=== PATIENT | female | born 1935 ===

== ENCOUNTER 2017-05-24 10:35 | Inpatient (IN) | payer MEDICARE, MEDICAID ==
[2017-05-24 10:39] VITALS: BMI 30.2
[2017-05-24 11:11] LABS: BASO # 0.2 K/uL (0.0-0.2); BASO % 1.8 % (0.0-2.0); EOS % 0.3 % (0.0-4.0); HEMATOCRIT 47.2 % (34.0-47.0); LYMPH # 1.4 K/uL (1.0-4.3); LYMPH % 10.9 % (20.0-40.0); MEAN CELL VOLUME 86.6 fl (81.0-99.0); MEAN CORPUSCULAR HEMOGLOBIN 27.8 pg (27.0-31.0); MEAN CORPUSCULAR HGB CONC 32.1 g/dL (33.0-37.0); MEAN PLATELET VOLUME 8.3 fl (7.2-11.7); MONO # 0.8 K/uL (0.0-0.8); MONO % 6.4 % (0.0-10.0); NEUT # 10.1 K/uL (1.8-7.0); NEUT % 80.6 % (50.0-75.0); NRBC % 0.1 % (0.0-0.0); RED CELL DISTRIBUTION WIDTH 14.9 % (11.5-14.5); WHITE BLOOD COUNT 12.5 K/uL (4.8-10.8)
[2017-05-24 11:25] LABS: ALB/GLOB RATIO 1.2 (1.0-2.1); BILIRUBIN,TOTAL 0.8 mg/dl (0.2-1.3); CALCIUM 9.7 mg/dL (8.4-10.2); POTASSIUM 3.8 MMOL/L (3.6-5.0); TOTAL PROTEIN 7.9 G/DL (6.3-8.2)
[2017-05-24 11:36] LABS: TROPONIN I 0.013 ng/mL (0.00-0.120)
--- NOTE | 2017-05-24 12:08 | ED PDOC ---
HPI: Altered Mental Status Time Seen by Provider: 05/24/17 10:54 Chief Complaint (Nursing): Altered Mental Status Chief Complaint (Provider): Altered mental status History Per: Family (daughter) History/Exam Limitations: Clinical Condition Onset/Duration Of Symptoms: Days (x5) Current Symptoms Are (Timing): Still Present Additional Complaint(s): Cecilia Jeong is an 82 year old female with a past medical history of hypertension, diabetes, and dementia accompanied by her daughter brought to the ED via EMS for an evaluation of altered mental status and failure to eat and drink occurring for the past 5 days prior to arrival. The patient is a poor historian due to her mental condition, therefore her daughter provided most of the patient's symptoms. The daughter states the patient was recently admitted under the care of Dr. Red, the patients primary care physician, in this hospital earlier in May for altered mental status and hypoglycemia and was just discharged yesterday. The patient was not eating or drinking properly and was generally weak during her recent hospitalization, with these symptoms worsening upon discharge when the patient went home. The daughter also reports the patient does not usually walk, but she is having weakness in her arms and legs. The daughter states the patient is complaining of generalized body aches, she does not have an appetite, she is less responsive to conversations, and she has been vomiting intermittently. She denies any incidence of diarrhea or cough. PMD: Keith Red MD NIHSS Stroke Scale - Date/Time Evaluation Performed Date Performed: 05/24/17 Time Performed: 11:30 When Was NIHSS Performed: Baseline - How Severe is the Stroke Level of Consciousness: 0=Alert LOC to Questions: 2=Neither correct LOC to commands: 2=Neither correct Best Gaze: 0=Normal Visual: 0=No visual loss Facial: 0=Normal Motor Arm - Left: 1=Drift noted before 10 sec Motor Arm - Right: 1=Drift noted before 10 sec Motor Leg - Left: 1=Drift before 5 sec Motor Leg - Right: 1=Drift before 5 sec Limb Ataxia: 0=Absent Sensory: 0=Normal Best Language: 0=No aphasia Dysarthia: 0=Normal articulation Extinction & Inattention (Neglect): 0=Normal, no object Score: 8 rTPA Inclusion/Exclusion - Refusal of Treatment Patient Refused Treatment: No - Inclusion Criteria for Altepase Patient is 18 years or Older: Yes Clinical DX Ischemic Stroke Cause Neurological Deficit: Yes Time of Onset Established Less Than 270 Mins Before TX Begin: No Risk/Benefit Discussed With Patient/Family Member Present: No Past Medical History Reviewed: Historical Data, Nursing Documentation, Vital Signs Vital Signs: Last Vital Signs Temp 97.1 F L 05/24/17 10:39 Pulse 87 05/24/17 11:55 Resp 18 05/24/17 11:55 BP 135/56 L 05/24/17 11:55 Pulse Ox 100 05/24/17 11:55 - Medical History PMH: Alzheimer's Disease, Anxiety, Arthritis, Bronchitis, CVA, Dementia, Gall Bladder Disease, HTN, TIA Denies: Chronic Kidney Disease - Surgical History Surgical History: Cholecystectomy - Family History Family History: States: Unknown Family Hx - Social History Current smoker - smoking cessation education provided: No Ex-Smoker (has not smoked in the last 12 months): No Alcohol: None Drugs: Denies - Home Medications Home Medications: Ambulatory Orders Medication Instructions Recorded Carvedilol [Coreg] 6.25 mg PO BID #60 tab 05/22/17 Lisinopril [Zestril] 20 mg PO BID #60 tab 05/22/17 amLODIPine [Norvasc] 2.5 mg PO DAILY #30 tab 05/22/17 Nitroglycerin 0.1 mg/hr [Nitro-Dur 1 patch TD DAILY #30 patch 05/23/17 0.1 mg/hr Patch] Donepezil HCl [Aricept] 5 mg PO DAILY 05/24/17 Esomeprazole Magnesium [Nexium] 40 mg PO DAILY 05/24/17 Meclizine [Antivert] 12.5 mg PO BID PRN 05/24/17 Albuterol/Ipratropium [Duoneb 3 3 ml INH RQ6 neb 05/27/17 mg/0.5 mg (3 ml) UD] Atorvastatin [Lipitor] 40 mg PO DAILY tab 05/27/17 Dextrose 5%-0.45% NS [Dextrose 1,000 ml IV DAILY #1 bag 05/27/17 5%-0.45% NS 500 ml] Enoxaparin [Lovenox] 40 mg SC DAILY syr 05/27/17 Nystatin [Nystop Topical Powder] 1 applic TOP TID bottle 05/27/17 - Allergies Allergies/Adverse Reactions: Allergies Allergy/AdvReac Type Severity Reaction Status Date / Time No Known Allergies Allergy Verified 05/24/17 10:51 Review of Systems Review Of Systems: ROS cannot be obtained secondary to pt's inabilty to answer questions. (history cannot be accurately obtained from patient due to patient's clinical condition) Physical Exam - Reviewed Nursing Documentation Reviewed: Yes Vital Signs Reviewed: Yes - Physical Exam Appears: Positive for: Non-toxic, No Acute Distress Head Exam: Positive for: ATRAUMATIC, NORMOCEPHALIC Skin: Positive for: Normal Color, Warm, Dry Eye Exam: Positive for: Normal appearance, EOMI, PERRL ENT: Positive for: Normal ENT Inspection, Other (mucous membranes dry ) Neck: Positive for: Normal, Painless ROM, Supple Cardiovascular/Chest: Positive for: Regular Rate, Rhythm, Chest Non Tender. Negative for: Edema, Murmur Respiratory: Positive for: Normal Breath Sounds. Negative for: Respiratory Distress Gastrointestinal/Abdominal: Positive for: Normal Exam, Soft. Negative for: Tenderness Back: Positive for: Normal Inspection Extremity: Positive for: Normal ROM, Other (3/5 strength in extremities; minor pain felt to left hip; spontaneous arm movement and leg movements) Neurologic/Psych: Positive for: Alert (and awake), Oriented (unable to determine orientation. patient does not follow commands). Negative for: Motor/ Sensory Deficits - Laboratory Results Result Diagrams: 05/25/17 06:30 05/25/17 06:30 - ECG O2 Sat by Pulse Oximetry: 100 (RA) Pulse Ox Interpretation: Normal Medical Decision Making Medical Decision Making: Time: 10:54 Impression: Altered mental status. Differential includes but is not limited to hyponatremia, stroke, UTI, dementia Plan: * ED EKG * CMP * CPK * Troponin I * CBC (with differential) * Nursing swallow screen PRN * CT Head w/o Contrast * [RAD] Hip 1 View W/ pelvis Left * Reevaluation CT Head Results: FINDINGS: HEMORRHAGE: Large, bland infarct corresponding to the distribution of the posterior cerebral artery on the left. This represents a new finding compared to the prior study May 19, 2017. BRAIN: No mass effect or edema. No atrophy or chronic microvascular ischemic changes. VENTRICLES: Unremarkable. No hydrocephalus. CALVARIUM: Densely calcified dural-based masses the largest right frontal parietal location measures 10 mm consistent with meningioma. Smaller dural-based masses less than 5 mm identified. PARANASAL SINUSES: Unremarkable as visualized. No significant inflammatory changes. MASTOID AIR CELLS: Unremarkable as visualized. No inflammatory changes. OTHER FINDINGS: None. IMPRESSION: Large acute, bland territorial infarction left posterior cerebral artery distribution. Critical Results Protocol Study completed at 11:35 Results conveyed verbally 12:29 Study interpreted 12:32 12:[address] Red. Will admit patient for stroke, inpatient telemetry. Requested Dr. Devlin for consult. 1250 Discussed the case with Dr Devlin. Recommends admission for stroke work up. He agrees and confirms that patient is not a candidate for TPA: exclusion criteria are time of onset is out of window for TPA and recommended time window for Endovascular therapy. Scribe Attestation: Documented by Hillary Yang, acting as a scribe for Eulalia Guerrier MD. Provider Scribe Attestation: All medical record entries made by the Scribe were at my direction and personally dictated by me. I have reviewed the chart and agree that the record accurately reflects my personal performance of the history, physical exam, medical decision making, and the department course for this patient. I have also personally directed, reviewed, and agree with the discharge instructions and disposition. Disposition - Clinical Impression Clinical Impression: CVA (cerebral vascular accident) - Patient ED Disposition Is Patient to be Admitted: Yes Discussed With : Keith Red Doctor Will See Patient In The: Hospital Counseled Patient/Family Regarding: Studies Performed, Diagnosis - Disposition Disposition Time: 12:50 Condition: FAIR - Pt Status Changed To: Hospital Disposition Of: Inpatient - Admit Certification Admit to Inpatient:: After my assessment, the patient will require hospitalization for at least two midnights. This is because of the severity of symptoms shown, intensity of services needed, and/or the medical risk in this patient being treated as an outpatient. - POA Present On Arrival: Poor Glycemic Control
--- NOTE | 2017-05-24 12:33 | CT ---
PROCEDURE: CT HEAD WITHOUT CONTRAST. HISTORY: Altered mental status COMPARISON: 05/19/2017 TECHNIQUE: Axial computed tomography images were obtained through the head/brain without intravenous contrast. Radiation dose: * Total exam DLP = 770.47 mGy-cm. This CT exam was performed using one or more of the following dose reduction techniques: Automated exposure control, adjustment of the mA and/or kV according to patient size, and/or use of iterative reconstruction technique. FINDINGS: HEMORRHAGE: Large, bland infarct corresponding to the distribution of the posterior cerebral artery on the left. This represents a new finding compared to the prior study May 19, 2017. BRAIN: No mass effect or edema. No atrophy or chronic microvascular ischemic changes. VENTRICLES: Unremarkable. No hydrocephalus. CALVARIUM: Densely calcified dural-based masses the largest right frontal parietal location measures 10 mm consistent with meningioma. Smaller dural-based masses less than 5 mm identified. PARANASAL SINUSES: Unremarkable as visualized. No significant inflammatory changes. MASTOID AIR CELLS: Unremarkable as visualized. No inflammatory changes. OTHER FINDINGS: None. IMPRESSION: Large acute, bland territorial infarction left posterior cerebral artery distribution. Critical Results Protocol Study completed at 11:35 Results conveyed verbally 12:29 Study interpreted 12:32
--- NOTE | 2017-05-24 14:03 | RAD ---
PROCEDURE: Left Hip X-ray Radiographs. HISTORY: left hip pain COMPARISON: None. FINDINGS: BONES: No evidence of acute displaced left-sided hip fracture. Left femoral head is appropriately located within the left acetabulum. Note is made of a foreshortened appearance of the right femoral neck. This is likely positional. Old healed fracture deformity would be less likely in the absence of a pertinent clinical history however not completely excluded. Clinical correlation recommended. JOINTS: Joint spaces preserved. . SOFT TISSUES: Normal. OTHER FINDINGS: None. IMPRESSION: No evidence of acute displaced left-sided hip fracture. Foreshortened appearance of the right femoral neck likely positional. Old healed fracture deformity would be less likely. . Clinical correlation recommended
--- NOTE | 2017-05-24 16:04 | MRI ---
PROCEDURE: MRI BRAIN WITHOUT CONTRAST HISTORY: stroke, AMS COMPARISON: Comparison is made to the previous study dated 01/07/[address] of the head dated 05/24/2017 TECHNIQUE: Multiplanar, multisequence MR images of the brain were obtained without intravenous contrast enhancement. FINDINGS: HEMORRHAGE: None DWI: Diffusion restriction seen at the left occipital lobe extending to the medial posterior left temporal lobe suggestive of left posterior cerebral artery territorial infarct. BRAIN PARENCHYMA: Extra-axial hypointense T1 and T2 signal is again noted suggestive of calcified meningioma. No evidence of midline shift. Moderate atrophy and moderate chronic microvascular white matter ischemic disease are noted. There is a [id number] dilatation of the extra-axial space in the left posterior fossa. VENTRICLES: Unremarkable. No hydrocephalus. CRANIUM: Unremarkable. ORBITS: Grossly unremarkable. PARANASAL SINUSES/MASTOIDS: Ipjw-gv-aowdizzl mucosal thickening at the right maxillary sinus. VASCULAR SYSTEM: Skull base flow voids intact. OTHER FINDINGS: None. IMPRESSION: Diffusion restriction at the left occipital lobe suggestive of large infarct involving the left posterior cerebral artery territory. Moderate atrophy and chronic microvascular ischemic disease. .
--- NOTE | 2017-05-24 18:26 | CP.PCM.HP ---
History of Present Illness - History of Present Illness History of Present Illness: Dx CVA Patient was recently AD [facility] 05-19 to 05-23 with Dx Change mental status , Patient at home was not eating refusing medication with increase in BP, generalized weakness. Patient was brought to ER 11- work up CT Head negative for CVA, Carotid US negative , Patient did no have MRI of Brain , She was uncooperative. Patient did not have any focal motor deficit , only generalized weakness and not eating or at best 50% of meals and rejecting meds. PT suggested GERMAINE , Patient 's family prefered Home care, her daughter would stay with her 04/02 . Patient at home was uncooperative , not eating or taking medications , increased generalized weaknss. Patient's daughter noticed that She was not moving the R arm DOA and She was brought to ER [facility] , CT head and MRI Brain large infarct L posterior cerebral artery not present in previous CT Head . She was AD treated with ASA and Lipitor Past Neurologic Hx of Cerebral Aneurysm and, Meningioma , TIA yrs ago treated with Plavix , Dementia Present on Admission - Present on Admission Any Indicators Present on Admission: No Review of Systems - Review of Systems Systems not reviewed;Unavailable: Acuity of Condition Past Patient History - Past Medical History & Family History Past Medical History?: Yes - Past Social History Smoking Status: Never Smoked Alcohol: None Home Situation {Lives}: Alone - CARDIAC Hx Cardiac Disorders: Yes Hx Hypertension: Yes - PULMONARY Hx Respiratory Disorders: Yes Hx Bronchitis: Yes - NEUROLOGICAL Hx Neurological Disorder: Yes Hx Alzheimer's Disease: Yes HX Cerebrovascular Accident: Yes Hx Dementia: Yes Hx Transient Ischemic Attacks (TIA): Yes - HEENT Hx HEENT Problems: Yes (Use eyeglasses) - RENAL Hx Chronic Kidney Disease: No - ENDOCRINE/METABOLIC Hx Endocrine Disorders: Yes Hx Diabetes Mellitus Type 2: Yes - HEMATOLOGICAL/ONCOLOGICAL Hx Blood Disorders: No Hx AIDS: No Hx Human Immunodeficiency Virus (HIV): No - INTEGUMENTARY Hx Dermatological Problems: No - MUSCULOSKELETAL/RHEUMATOLOGICAL Hx Musculoskeletal Disorders: Yes Hx Arthritis: Yes Hx Falls: No - GASTROINTESTINAL Hx Gastrointestinal Disorders: Yes Hx Gall Bladder Disease: Yes - GENITOURINARY/GYNECOLOGICAL Hx Genitourinary Disorders: Yes Hx Incontinence: Yes - PSYCHIATRIC Hx Psychophysiologic Disorder: Yes Hx Anxiety: Yes Hx Substance Use: No - SURGICAL HISTORY Hx Surgeries: Yes Hx Cholecystectomy: Yes - ANESTHESIA Hx Anesthesia: Yes Hx Anesthesia Reactions: No Hx Malignant Hyperthermia: No Has any member of the family had a problem w/ anesthesia?: No Meds Allergies/Adverse Reactions: Allergies Allergy/AdvReac Type Severity Reaction Status Date / Time No Known Allergies Allergy Verified 05/24/17 10:51 Physical Exam - Constitutional Appears: Chronically Ill - Head Exam Head Exam: NORMAL INSPECTION - Eye Exam Eye Exam: PERRL - ENT Exam ENT Exam: Normal Exam - Neck Exam Neck exam: Positive for: Normal Inspection - Respiratory Exam Respiratory Exam: Decreased Breath Sounds (at bases) - Cardiovascular Exam Cardiovascular Exam: REGULAR RHYTHM - GI/Abdominal Exam GI & Abdominal Exam: Normal Bowel Sounds, Soft - Extremities Exam Extremities exam: Positive for: normal inspection - Back Exam Back exam: NORMAL INSPECTION - Neurological Exam Additional comments: Awake , able to talk , not following commands , no facial asymmetry, gag reflex (+) , not moving RUE , RLE , some movement rest of the extremities, Plantar up going - Skin Skin Exam: Warm Results - Vital Signs Recent Vital Signs: Last Vital Signs Temp 97.4 F L 05/24/17 16:34 Pulse 78 05/24/17 16:34 Resp 18 05/24/17 16:34 BP 151/84 H 05/24/17 16:34 Pulse Ox 100 05/24/17 16:34 - Labs Result Diagrams: 05/25/17 06:30 05/25/17 06:30 Labs: Laboratory Results - last 24 hr 05/24/17 05/24/17 05/24/17 11:00 11:00 16:44 WBC 12.5 H RBC 5.45 H Hgb 15.2 D Hct 47.2 H MCV 86.6 MCH 27.8 MCHC 32.1 L RDW 14.9 H Plt Count 292 MPV 8.3 Neut % (Auto) 80.6 H Lymph % (Auto) 10.9 L Fountain % (Auto) 6.4 Eos % (Auto) 0.3 Baso % (Auto) 1.8 Neut # 10.1 H Lymph # 1.4 Fountain # 0.8 Eos # 0.0 Baso # 0.2 Sodium 141 Potassium 3.8 Chloride 98 Carbon Dioxide 28 Anion Gap 18 BUN 37 H Creatinine 1.6 H Est GFR ( Amer) 37 Est GFR (Non-Af Amer) 31 POC Glucose (mg/dL) 207 H Random Glucose 207 H Calcium 9.7 Total Bilirubin 0.8 AST 36 D ALT 39 Alkaline Phosphatase 116 Troponin I 0.0130 Total Protein 7.9 Albumin 4.2 Globulin 3.7 Albumin/Globulin Ratio 1.2 Assessment & Plan (1) CVA (cerebral vascular accident) Status: Acute Comment: L posterior Cerebral Artery (2) Dementia Status: Chronic (3) Meningioma Status: Chronic (4) Cerebral aneurysm Status: Chronic Comment: Hx (5) Hypertension Status: Chronic Priority: High (6) DMII (diabetes mellitus, type 2) Status: Chronic - Assessment and Plan (Free Text) Plan: Continue Ecotrin , Lipitor, monitor BP and BS , f/u Neurology consult , Patient on puree diet, but She is refusing to eat and taking meds , discussed with Patient's family , They agree with PEG tube if needed and also that Patient should be transferred to Longterm as permanent resident when Patient stable. - Date & Time Date: 05/24/17 Time: 14:00
[2017-05-24] MEDS ORDERED: Sodium Chloride 0.45% 1,000 ML IV SCH (21:45)
--- NOTE | 2017-05-24 22:36 | CARD ---
APPROVED REPORT EKG Measurement Heart [id number] <Conclusion> Normal sinus rhythm Possible Left atrial enlargement Left ventricular hypertrophy Nonspecific ST abnormality Abnormal ECG
[2017-05-25] MEDS: Sodium Chloride 0.9% 1,000 ML IV SCH ×2 (00:49→14:00)
[2017-05-25 07:42] LABS: HEMATOCRIT 40.6 % (34.0-47.0); MEAN CELL VOLUME 86.8 fl (81.0-99.0); MEAN CORPUSCULAR HGB CONC 33.4 g/dL (33.0-37.0); RED CELL DISTRIBUTION WIDTH 14.9 % (11.5-14.5); WHITE BLOOD COUNT 8.7 K/uL (4.8-10.8)
[2017-05-25 07:48] LABS: ALKALINE PHOSPHATASE 96 U/L (38-126); ALT/SGPT 37 U/L (9-52); AST/SGOT 32 U/L (14-36); BILIRUBIN,TOTAL 0.8 mg/dl (0.2-1.3); BLOOD UREA NITROGEN 39 mg/dl (7-17); CALCIUM 8.6 mg/dL (8.4-10.2); CARBON DIOXIDE 31 mmol/L (22-30); CHLORIDE 101 mmol/L (98-107); CHOLESTEROL 120 mg/dL (0-199); GFR AFRICAN-AMERICAN > 60; GLUCOSE,RANDOM 176 mg/dL (65-105); POTASSIUM 3.5 MMOL/L (3.6-5.0); SODIUM 141 mmol/l (132-148); TOTAL PROTEIN 6.9 G/DL (6.3-8.2)
[2017-05-25] MEDS: Aspirin 325 mg EC Tablets PO SCH (09:33)
[2017-05-25] MEDS: Albuterol-Ipratrop 3 mg / 0.5 (3 ml) UD INH SCH (20:00)
--- NOTE | 2017-05-25 22:30 | CP.PCM.PN ---
Subjective - Date & Time of Evaluation Date of Evaluation: 05/25/17 Time of Evaluation: 15:00 - Subjective Subjective: F/u CVA Pt awake, follows commands, able to move the RUE, not LLE. Refusing to have lunch today. Objective - Vital Signs/Intake and Output Vital Signs (last 24 hours): Temp Pulse Resp BP Pulse Ox 98.1 F 97 H 20 158/64 H 98 05/25/17 19:34 05/25/17 19:34 05/25/17 19:34 05/25/17 19:34 05/25/17 19:34 Intake and Output: 05/25/17 05/26/17 18:59 06:59 Intake Total 960 Output Total 400 Balance 560 - Medications Medications: Current Medications Albuterol/Ipratropium (Duoneb 3 Mg/0.5 Mg (3 Ml) Ud) 3 ml INH RQ6 [facility] Aspirin (Ecotrin) 325 mg PO DAILY [facility] Last Admin: 05/25/17 09:33 Dose: 325 mg Atorvastatin Calcium (Lipitor) 40 mg PO DAILY [facility] Last Admin: 05/25/17 09:33 Dose: 40 mg Sodium Chloride (Sodium Chloride 0.9%) 1,000 mls @ 80 mls/hr IV .[id number] [facility] Stop: 05/26/17 00:30 Last Admin: 05/25/17 14:00 Dose: 80 mls/hr Nystatin (Nystop Topical Powder) 1 applic TOP TID [facility] Last Admin: 05/25/17 17:09 Dose: 1 applic - Labs Labs: 05/25/17 06:30 05/25/17 06:30 - Constitutional Appears: No Acute Distress, Chronically Ill - Head Exam Head Exam: NORMAL INSPECTION - Eye Exam Eye Exam: PERRL - ENT Exam ENT Exam: Normal Exam - Neck Exam Neck Exam: Normal Inspection - Respiratory Exam Respiratory Exam: Decreased Breath Sounds (at bases) - Cardiovascular Exam Cardiovascular Exam: REGULAR RHYTHM - GI/Abdominal Exam GI & Abdominal Exam: Soft, Normal Bowel Sounds - Extremities Exam Extremities Exam: Normal Inspection - Back Exam Back Exam: NORMAL INSPECTION - Neurological Exam Neurological Exam: Awake Additional comments: Pt able to talk, not following commands, no facial asymmetry, R hemiplegia. - Skin Skin Exam: Warm Assessment and Plan (1) CVA (cerebral vascular accident) Status: Acute (2) Dementia Status: Chronic (3) Meningioma Status: Chronic (4) Cerebral aneurysm Status: Chronic (5) Hypertension Status: Chronic (6) DMII (diabetes mellitus, type 2) Status: Chronic - Assessment and Plan (Free Text) Plan: Continue Lovenox, Ecotrin, Glucerna and rest of Tx. Pt seen by GI and ordered CT Abd/Pelv with IV contrast for tomorrow.
--- NOTE | 2017-05-26 00:58 | CP.PCM.CON ---
History of Present Illness - History of Present Illness History of Present Illness: Patient was recently AD [facility] 05-19 to 05-23 with Dx Change mental status , Patient at home was not eating refusing medication with increase in BP, generalized weakness. Patient was brought to ER 11- work up CT Head negative for CVA, Carotid US negative , Patient did no have MRI of Brain , She was uncooperative. Patient did not have any focal motor deficit , only generalized weakness and not eating or at best 50% of meals and rejecting meds. PT suggested GERMAINE , Patient 's family prefered Home care, her daughter would stay with her 04/02 . Patient at home was uncooperative , not eating or taking medications , increased generalized weakness . Patient's daughter noticed that She was not moving the R arm DOA and She was brought to ER [facility] , CT head and MRI Brain large infarct L posterior cerebral artery not present in previous CT Head . She was AD treated with ASA and Lipitor Past History: Neurologic Hx of Cerebral Aneurysm and, Meningioma , TIA yrs ago treated with Plavix , Dementia Hx Cardiac Disorder Hx Hypertension Hx Respiratory Disorders Hx Bronchitis Hx Diabetes Mellitus Type 2 Hx Gall Bladder Disease Hx Arthritis Hx Incontinence Hx Psychophysiologic Disorder Hx Anxiety Surgical History: Cholecystectomy Review of Systems - Review of Systems Systems not reviewed;Unavailable: Acuity of Condition Past Patient History - Past Medical History & Family History Past Medical History?: Yes - Past Social History Smoking Status: Never Smoked Alcohol: None Home Situation {Lives}: Alone - CARDIAC Hx Cardiac Disorders: Yes Hx Hypertension: Yes - PULMONARY Hx Respiratory Disorders: Yes Hx Bronchitis: Yes - NEUROLOGICAL Hx Neurological Disorder: Yes Hx Alzheimer's Disease: Yes HX Cerebrovascular Accident: Yes Hx Dementia: Yes Hx Transient Ischemic Attacks (TIA): Yes - HEENT Hx HEENT Problems: Yes (Use eyeglasses) - RENAL Hx Chronic Kidney Disease: No - ENDOCRINE/METABOLIC Hx Endocrine Disorders: Yes Hx Diabetes Mellitus Type 2: Yes - HEMATOLOGICAL/ONCOLOGICAL Hx Blood Disorders: No Hx AIDS: No Hx Human Immunodeficiency Virus (HIV): No - INTEGUMENTARY Hx Dermatological Problems: No - MUSCULOSKELETAL/RHEUMATOLOGICAL Hx Musculoskeletal Disorders: Yes Hx Arthritis: Yes Hx Falls: No - GASTROINTESTINAL Hx Gastrointestinal Disorders: Yes Hx Gall Bladder Disease: Yes - GENITOURINARY/GYNECOLOGICAL Hx Genitourinary Disorders: Yes Hx Incontinence: Yes - PSYCHIATRIC Hx Psychophysiologic Disorder: Yes Hx Anxiety: Yes Hx Substance Use: No - SURGICAL HISTORY Hx Surgeries: Yes Hx Cholecystectomy: Yes - ANESTHESIA Hx Anesthesia: Yes Hx Anesthesia Reactions: No Hx Malignant Hyperthermia: No Has any member of the family had a problem w/ anesthesia?: No NIHSS Stroke Scale - Date/Time Evaluation Performed Date Performed: 05/24/17 Time Performed: 11:30 When Was NIHSS Performed: Baseline - How Severe is the Stroke Level of Consciousness: 0=Alert LOC to Questions: 2=Neither correct LOC to commands: 2=Neither correct Best Gaze: 0=Normal Visual: 0=No visual loss Facial: 0=Normal Motor Arm - Left: 1=Drift noted before 10 sec Motor Arm - Right: 1=Drift noted before 10 sec Motor Leg - Left: 1=Drift before 5 sec Motor Leg - Right: 1=Drift before 5 sec Limb Ataxia: 0=Absent Sensory: 0=Normal Best Language: 0=No aphasia Dysarthia: 0=Normal articulation Extinction & Inattention (Neglect): 0=Normal, no object Score: 8 IMPRESSION of MRI Brain: Diffusion restriction at the left occipital lobe suggestive of large infarct involving the left posterior cerebral artery territory. Moderate atrophy and chronic microvascular ischemic disease. . Meds Allergies/Adverse Reactions: Allergies Allergy/AdvReac Type Severity Reaction Status Date / Time No Known Allergies Allergy Verified 05/24/17 10:51 Last Vital Signs Temp 97.4 F L 05/24/17 16:34 Pulse 78 05/24/17 16:34 Resp 18 05/24/17 16:34 BP 151/84 H 05/24/17 16:34 Pulse Ox 100 05/24/17 16:34 Neurological Exam Awake , able to talk , not following commands , no facial asymmetry, gag reflex (+) , not moving RUE , RLE , some movement rest of the extremities, Plantar up going Assessment & Plan (1) CVA (cerebral vascular accident) Status: Acute Comment: L posterior Cerebral Artery (2) Dementia Status: Chronic (3) Meningioma Status: Chronic (4) Cerebral aneurysm Status: Chronic Comment: Hx (5) Hypertension Status: Chronic Priority: High (6) DMII (diabetes mellitus, type 2) Status: Chronic - Assessment and Plan (Free Text) Plan: Continue Ecotrin , Lipitor, monitor BP and BS , f/u Neurology consult , Patient on puree diet, but She is refusing to eat and taking meds , discussed with Patient's family , They agree with PEG tube if needed and also that Patient should be transferred to Retirement as permanent resident when Patient stable. Past Patient History - Past Medical History & Family History Past Medical History?: Yes - Past Social History Smoking Status: Never Smoked Alcohol: None Home Situation {Lives}: Alone - CARDIAC Hx Cardiac Disorders: Yes Hx Hypertension: Yes - PULMONARY Hx Respiratory Disorders: Yes Hx Bronchitis: Yes - NEUROLOGICAL Hx Neurological Disorder: Yes Hx Alzheimer's Disease: Yes HX Cerebrovascular Accident: Yes Hx Dementia: Yes Hx Transient Ischemic Attacks (TIA): Yes - HEENT Hx HEENT Problems: Yes (Use eyeglasses) - RENAL Hx Chronic Kidney Disease: No - ENDOCRINE/METABOLIC Hx Endocrine Disorders: Yes Hx Diabetes Mellitus Type 2: Yes - HEMATOLOGICAL/ONCOLOGICAL Hx Blood Disorders: No Hx AIDS: No Hx Human Immunodeficiency Virus (HIV): No - INTEGUMENTARY Hx Dermatological Problems: No - MUSCULOSKELETAL/RHEUMATOLOGICAL Hx Musculoskeletal Disorders: Yes Hx Arthritis: Yes Hx Falls: No - GASTROINTESTINAL Hx Gastrointestinal Disorders: Yes Hx Gall Bladder Disease: Yes - GENITOURINARY/GYNECOLOGICAL Hx Genitourinary Disorders: Yes Hx Incontinence: Yes - PSYCHIATRIC Hx Psychophysiologic Disorder: Yes Hx Anxiety: Yes Hx Substance Use: No - SURGICAL HISTORY Hx Surgeries: Yes Hx Cholecystectomy: Yes - ANESTHESIA Hx Anesthesia: Yes Hx Anesthesia Reactions: No Hx Malignant Hyperthermia: No Has any member of the family had a problem w/ anesthesia?: No Meds Allergies/Adverse Reactions: Allergies Allergy/AdvReac Type Severity Reaction Status Date / Time No Known Allergies Allergy Verified 05/24/17 10:51 - Medications Medications: Current Medications Albuterol/Ipratropium (Duoneb 3 Mg/0.5 Mg (3 Ml) Ud) 3 ml INH RQ6 [facility] Last Admin: 05/25/17 20:00 Dose: Not Given Aspirin (Ecotrin) 325 mg PO DAILY [facility] Last Admin: 05/25/17 09:33 Dose: 325 mg Atorvastatin Calcium (Lipitor) 40 mg PO DAILY [facility] Last Admin: 05/25/17 09:33 Dose: 40 mg Nystatin (Nystop Topical Powder) 1 applic TOP TID [facility] Last Admin: 05/25/17 17:09 Dose: 1 applic Physical Exam - Neurological Exam Additional comments: Mental Status: Confused, not interactive, did not verbalize, no eye to eye contact Demented, does not follow commands Patient is lying down, not interacting complaining of pain on trying to move her left Upper and Lower Extremities, no spontaneous movements of her right or left side extremities Cranial Nerves: Pupils are equal, sluggish reaction to light, eye movements are symmetrical No facial asymmetry central tongue Intact gag reflex Motor: Right side is mostly flaccid Left side negative movements are very painful to her, mainly the left Shoulder and the whole left leg and thigh. Unable to assess the power as there is no spontaneous movements. DTR are 0/4 toes are equivocal Sensory: Tenderness and pain like above Cerebellar: Unable to assess Stature and gait: does not stand or walk due to her weakness. Results - Vital Signs Recent Vital Signs: Last Vital Signs Temp 98.1 F 05/25/17 19:34 Pulse 97 H 05/25/17 19:34 Resp 20 05/25/17 19:34 BP 158/64 H 05/25/17 19:34 Pulse Ox 98 05/25/17 19:34 - Labs Result Diagrams: 05/25/17 06:30 05/25/17 06:30 Labs: Laboratory Results - last 24 hr 05/24/17 05/25/17 05/25/17 10:44 05:40 06:30 WBC 8.7 RBC 4.68 Hgb 13.6 Hct 40.6 MCV 86.8 MCH 29.0 MCHC 33.4 RDW 14.9 H Plt Count 249 Sodium Potassium Chloride Carbon Dioxide Anion Gap BUN Creatinine Est GFR ( Amer) Est GFR (Non-Af Amer) POC Glucose (mg/dL) 205 H 152 H Random Glucose Calcium Total Bilirubin AST ALT Alkaline Phosphatase Total Protein Albumin Globulin Albumin/Globulin Ratio Triglycerides Cholesterol LDL Cholesterol Direct HDL Cholesterol 05/25/17 05/25/17 05/25/17 06:30 10:24 16:35 WBC RBC Hgb Hct MCV MCH MCHC RDW Plt Count Sodium 141 Potassium 3.5 L Chloride 101 Carbon Dioxide 31 H Anion Gap 13 BUN 39 H Creatinine 1.0 Est GFR ( Amer) > 60 Est GFR (Non-Af Amer) 53 POC Glucose (mg/dL) 169 H 166 H Random Glucose 176 H Calcium 8.6 Total Bilirubin 0.8 AST 32 ALT 37 Alkaline Phosphatase 96 Total Protein 6.9 Albumin 3.4 L Globulin 3.5 Albumin/Globulin Ratio 1.0 Triglycerides 150 H Cholesterol 120 LDL Cholesterol Direct 73 HDL Cholesterol 26 L 05/25/17 22:07 WBC RBC Hgb Hct MCV MCH MCHC RDW Plt Count Sodium Potassium Chloride Carbon Dioxide Anion Gap BUN Creatinine Est GFR ( Amer) Est GFR (Non-Af Amer) POC Glucose (mg/dL) 157 H Random Glucose Calcium Total Bilirubin AST ALT Alkaline Phosphatase Total Protein Albumin Globulin Albumin/Globulin Ratio Triglycerides Cholesterol LDL Cholesterol Direct HDL Cholesterol Assessment & Plan (1) CVA (cerebral vascular accident) Assessment and Plan: IMPRESSION of MRI Brain: Diffusion restriction at the left occipital lobe suggestive of large infarct involving the left posterior cerebral artery territory. Moderate atrophy and chronic microvascular ischemic disease. This can explain her serious mental status changes. Status: Acute (2) Cerebral aneurysm Assessment and Plan: Old Records are needed. Status: Chronic (3) Dementia Assessment and Plan: History of a previous stroke, cause of her dementia is not known to us, old records are needed. Status: Chronic (4) Meningioma Assessment and Plan: Old records are needed Status: Chronic (5) Altered mental status Assessment and Plan: Chronic Mental status Changes with acute mental changes on top of her condition Status: Acute Priority: High (6) Headache Assessment and Plan: R/O Temporal arteritis Get ESR, CRP Status: Acute Priority: Medium (7) DMII (diabetes mellitus, type 2) Status: Chronic (8) Dementia Assessment and Plan: Chronic Mental status Changes with acute mental changes on top of her condition Status: Chronic Priority: High
[2017-05-26] MEDS: Albuterol-Ipratrop 3 mg / 0.5 (3 ml) UD INH SCH ×3 (01:03→13:26)
[2017-05-26] MEDS: Aspirin 325 mg EC Tablets PO SCH (09:40)
[2017-05-26] MEDS ORDERED: Iohexol 240 (50 ml) PO ONE (12:39)
--- NOTE | 2017-05-26 14:49 | CP.PCM.PN ---
Subjective - Date & Time of Evaluation Date of Evaluation: 05/26/17 Time of Evaluation: 14:00 - Subjective Subjective: F/U CVA Pt with poor appetite refusing puree diet and minimal intake fluid, also refusing po medications, able to talk, confused, follows simple commands. Objective - Vital Signs/Intake and Output Vital Signs (last 24 hours): Temp Pulse Resp BP Pulse Ox 98.6 F 105 H 20 171/82 H 93 L 05/26/17 12:50 05/26/17 12:50 05/26/17 12:50 05/26/17 12:50 05/26/17 12:50 Intake and Output: 05/26/17 05/26/17 06:59 18:59 Intake Total 1640 Output Total 800 Balance 840 - Medications Medications: Current Medications Albuterol/Ipratropium (Duoneb 3 Mg/0.5 Mg (3 Ml) Ud) 3 ml INH RQ6 [facility] Last Admin: 05/26/17 13:26 Dose: 3 ml Aspirin (Ecotrin) 325 mg PO DAILY [facility] Last Admin: 05/26/17 09:40 Dose: 325 mg Atorvastatin Calcium (Lipitor) 40 mg PO DAILY [facility] Last Admin: 05/26/17 09:40 Dose: 40 mg Nystatin (Nystop Topical Powder) 1 applic TOP TID [facility] Last Admin: 05/26/17 09:40 Dose: 1 applic - Labs Labs: 05/25/17 06:30 05/25/17 06:30 - Constitutional Appears: No Acute Distress, Chronically Ill - Head Exam Head Exam: NORMAL INSPECTION - Eye Exam Eye Exam: PERRL - ENT Exam ENT Exam: Normal Exam - Neck Exam Neck Exam: Normal Inspection - Respiratory Exam Respiratory Exam: Decreased Breath Sounds (at bases) - Cardiovascular Exam Cardiovascular Exam: REGULAR RHYTHM - GI/Abdominal Exam GI & Abdominal Exam: Soft, Normal Bowel Sounds - Extremities Exam Extremities Exam: Normal Inspection - Back Exam Back Exam: NORMAL INSPECTION - Neurological Exam Neurological Exam: Awake (Able to talk, no facial asymmetry, R hemiplegia.) - Psychiatric Exam Additional comments: Calm - Skin Skin Exam: Warm Assessment and Plan (1) CVA (cerebral vascular accident) Status: Acute (2) Dementia Status: Chronic (3) Meningioma Status: Chronic (4) Cerebral aneurysm Status: Chronic (5) Hypertension Status: Chronic (6) DMII (diabetes mellitus, type 2) Status: Chronic - Assessment and Plan (Free Text) Plan: Pt had CT Abd/Pel today, continue Lovenox, Lipitor, Ecotrin, Lucerna.
--- NOTE | 2017-05-26 22:32 | CP.PCM.PN ---
Subjective - Date & Time of Evaluation Date of Evaluation: 05/26/17 Time of Evaluation: 20:15 - Subjective Subjective: More responsive, more cooperative, Right UE and Right LE are flaccid, Left side is weak and it is tender to move her left side UE and LE. RPR non reactive, CRP 10, ESR 33 Objective - Vital Signs/Intake and Output Vital Signs (last 24 hours): Temp Pulse Resp BP Pulse Ox 97.6 F 97 H 20 172/86 H 96 05/26/17 19:33 05/26/17 19:33 05/26/17 19:33 05/26/17 19:33 05/26/17 19:33 Intake and Output: 05/26/17 05/27/17 18:59 06:59 Intake Total 1260 Output Total 600 Balance 660 - Medications Medications: Current Medications Albuterol/Ipratropium (Duoneb 3 Mg/0.5 Mg (3 Ml) Ud) 3 ml INH RQ6 [facility] Last Admin: 05/26/17 13:26 Dose: 3 ml Aspirin (Ecotrin) 325 mg PO DAILY [facility] Last Admin: 05/26/17 09:40 Dose: 325 mg Atorvastatin Calcium (Lipitor) 40 mg PO DAILY [facility] Last Admin: 05/26/17 09:40 Dose: 40 mg Nystatin (Nystop Topical Powder) 1 applic TOP TID [facility] Last Admin: 05/26/17 18:16 Dose: 1 applic - Labs Labs: 05/25/17 06:30 05/25/17 06:30 Assessment and Plan (1) CVA (cerebral vascular accident) Status: Acute (2) Cerebral aneurysm Status: Chronic (3) Dementia Status: Chronic (4) Meningioma Status: Chronic (5) Altered mental status Status: Acute (6) Headache Status: Acute (7) DMII (diabetes mellitus, type 2) Status: Chronic (8) Dementia Status: Chronic
--- NOTE | 2017-05-26 23:12 | CON ---
DATE: 05/26/2017 REFERRING DOCTOR: Dr. Red. REASON FOR CONSULTATION: Failure to thrive, failure to take p.o. HISTORY OF PRESENT ILLNESS: This is a pleasant 82-year-old female with history of hypertension, diabetes, and dementia. She is brought in for altered mental status for the past week or so with some generalized malaise. The patient is a poor historian, therefore, history obtained from the chart. Essentially GI is called for a feeding tube insertion. PAST MEDICAL HISTORY: As above. PAST SURGICAL HISTORY: As above. MEDICATION: Have been reviewed. REVIEW OF SYSTEMS: Unable to obtain. PHYSICAL EXAMINATION: VITAL SIGNS: During the hospital, grossly unremarkable. GENERAL: A pleasant elderly-appearing female lying in bed comfortably, in no apparent distress. HEENT: Head: Normocephalic, atraumatic. Eyes: Pupils equally reactive to light bilaterally. No conjunctival pallor or icterus. NECK: Supple. Normal range of motion. No lymphadenopathy appreciated. LUNGS: Coarse breath sounds bilaterally. HEART: S1, S2, regular rate and rhythm. No murmurs appreciated. ABDOMEN: Soft, nontender. Bowel sounds present. No rebound, no guarding. RECTAL: Deferred. EXTREMITIES: Pulses present bilaterally. SKIN: Warm, dry, and intact. NEUROLOGIC: A and O x1 . LABORATORY DATA: All labs and relevant radiology have been reviewed. Labs include WBC 12.5, now down to 8.7, hemoglobin 13.6, hematocrit of 40.6. ESR 33. Sugars of 175. ASSESSMENT AND PLAN: This is an 82-year-old female with some abdominal pain, discomfort, generalized malaise, and failure to thrive. From a Gastrointestinal stand point, we will defer to Neurology for clearing the patient for any possible ongoing mental status changes. We will need to make sure stop for 7 days. We will discuss with family about feeding tube. Patient has some discomfort, we will get a CAT scan for now. Thank you for the consult. Christopher Pichardo MD/ PhD cc: Keith Red MD
[2017-05-27] MEDS: Albuterol-Ipratrop 3 mg / 0.5 (3 ml) UD INH SCH ×4 (01:21→19:38)
--- NOTE | 2017-05-27 09:30 | PQF GENQUE ---
This form is a permanent part of the medical record 05/27/17 Dr. Red, Would you please clarify if there is an associated diagnosis to go along with the following documentation: " Not moving RUE, RLE". Patient was recently discharged. Admitted with increased generalized weakness. CT and MRI + for large infarct L posterior cerebral artery. Treated with aspirin. Documentation of Awake , able to talk , not following commands , no facial asymmetry, gag reflex (+) , not moving RUE , RLE , some movement rest of the extremities, Plantar up going. Clarification of your documentation is requested to better reflect the severity of illness and intensity of treatment of your patient. Indicators present [] Specify: [] [] Specify: [] [] Specify: [] [] Specify: [] Location in the medical record that reflects the above clinical findings: [] Treatment Provided: [] PHYSICIAN'S RESPONSE Based on your medical judgment of the clinical indicators outlined above please clarify the following: [] Practitioner response [] If unable to determine, please check the box, sign and date. Present On Admission (POA) Indicator: [] Present at the time of admission [] Not present at the time of admission [] Clinically Undetermined In responding to this query, please exercise your independent professional judgment. The fact that a question is asked does not imply that any particular answer is desired or expected. Thank you for your clarification on this documentation. If you have any questions please call:ext [phone] * Thank you, Susu Mace RN [facility]
[2017-05-27] MEDS: Aspirin 325 mg EC Tablets PO SCH (09:55)
[2017-05-27] MEDS: Dextrose 5%/0.45% NS 1,000 ML IV SCH (12:42)
[2017-05-27] MEDS: Enoxaparin 40 mg Syringe SC SCH (14:13)
[2017-05-27] MEDS ORDERED: Sodium Chloride 0.9% 50 ML IV ONE (15:00)
[2017-05-27] MEDS ORDERED: Iohexol 300 100 ML IJ ONE (15:00)
--- NOTE | 2017-05-27 16:28 | CP.PCM.PN ---
Subjective - Date & Time of Evaluation Date of Evaluation: 05/27/17 Time of Evaluation: 11:00 - Subjective Subjective: F/U CVA Pt awake, able to talk, follows commands, weak but able to race the RUE against the gravity, not able to move the RLE on commands, able to move tips of fingers. Objective - Vital Signs/Intake and Output Vital Signs (last 24 hours): Temp Pulse Resp BP Pulse Ox 97.4 F L 111 H 20 164/82 H 93 L 05/27/17 16:00 05/27/17 16:00 05/27/17 16:00 05/27/17 16:00 05/27/17 16:00 Intake and Output: 05/27/17 05/27/17 06:59 18:59 Intake Total 1260 380 Output Total 600 Balance 660 380 - Medications Medications: Current Medications Albuterol/Ipratropium (Duoneb 3 Mg/0.5 Mg (3 Ml) Ud) 3 ml INH RQ6 [facility] Last Admin: 05/27/17 13:19 Dose: 3 ml Aspirin (Ecotrin) 325 mg PO DAILY [facility] Last Admin: 05/27/17 09:55 Dose: 325 mg Atorvastatin Calcium (Lipitor) 40 mg PO DAILY [facility] Last Admin: 05/27/17 09:55 Dose: 40 mg Enoxaparin Sodium (Lovenox) 40 mg SC DAILY [facility] PRN Reason: Protocol Last Admin: 05/27/17 14:13 Dose: 40 mg Dextrose/Sodium Chloride (Dextrose 5%/0.45% Ns 1000 Ml) 1,000 mls @ 60 mls/hr IV .[id number] [facility] Stop: 05/28/17 12:23 Last Admin: 05/27/17 12:42 Dose: 60 mls/hr Nystatin (Nystop Topical Powder) 1 applic TOP TID [facility] Last Admin: 05/27/17 12:41 Dose: 1 applic - Labs Labs: 05/25/17 06:30 05/25/17 06:30 - Constitutional Appears: No Acute Distress, Chronically Ill - Head Exam Head Exam: NORMAL INSPECTION - Eye Exam Eye Exam: PERRL - ENT Exam ENT Exam: Normal Exam - Neck Exam Neck Exam: Normal Inspection - Respiratory Exam Respiratory Exam: Decreased Breath Sounds (at bases) - Cardiovascular Exam Cardiovascular Exam: REGULAR RHYTHM - GI/Abdominal Exam GI & Abdominal Exam: Soft, Normal Bowel Sounds - Extremities Exam Extremities Exam: Normal Inspection - Back Exam Back Exam: NORMAL INSPECTION - Neurological Exam Neurological Exam: Awake (Able to talk, no facial asymmetry, R hemiplegia) - Psychiatric Exam Additional comments: Calm - Skin Skin Exam: Warm Assessment and Plan (1) CVA (cerebral vascular accident) Status: Acute (2) Dementia Status: Chronic (3) Meningioma Status: Chronic (4) Cerebral aneurysm Status: Chronic (5) Hypertension Status: Chronic (6) DMII (diabetes mellitus, type 2) Status: Chronic - Assessment and Plan (Free Text) Plan: F/U result of Ct Pelv/Abd today, continue current Tx.
--- NOTE | 2017-05-27 16:34 | CT ---
PROCEDURE: CT Abdomen and Pelvis with contrast HISTORY: Abdominal pain COMPARISON: None. TECHNIQUE: Contrast dose: 95 cc Omnipaque 300 Radiation dose: Total exam DLP =1067.57 mGy-cm. This CT exam was performed using one or more of the following dose reduction techniques: Automated exposure control, adjustment of the mA and/or kV according to patient size, and/or use of iterative reconstruction technique. FINDINGS: LOWER THORAX: Unremarkable. LIVER: Unremarkable. No gross lesion or ductal dilatation. GALLBLADDER AND BILE DUCTS: Status post cholecystectomy. No abnormality is seen in the gallbladder fossa. PANCREAS: Unremarkable. No gross lesion or ductal dilatation. SPLEEN: Unremarkable. ADRENALS: Unremarkable. No mass. KIDNEYS AND URETERS: Unremarkable. No hydronephrosis. No solid mass. VASCULATURE: Unremarkable. No aortic aneurysm. BOWEL: Diverticulosis without an acute inflammatory component or other associated pathologic process. APPENDIX: Normal appendix. PERITONEUM: Unremarkable. No free fluid. No free air. LYMPH NODES: Unremarkable. No enlarged lymph nodes. BLADDER: Pedroza catheter in satisfactory position within the urinary bladder. REPRODUCTIVE: Unremarkable. BONES: No acute fracture. OTHER FINDINGS: None. IMPRESSION: Unremarkable contrast enhanced CT of the abdomen and pelvis.
--- NOTE | 2017-05-28 00:44 | CP.PCM.PN ---
Subjective - Date & Time of Evaluation Date of Evaluation: 05/27/17 Time of Evaluation: 21:00 - Subjective Subjective: More awake and alert, able to talk and is responsive, regained some movements of the right side fingers. IMPRESSION: Unremarkable contrast enhanced CT of the abdomen and pelvis. Objective - Vital Signs/Intake and Output Vital Signs (last 24 hours): Temp Pulse Resp BP Pulse Ox 99.7 F H 97 H 18 175/89 H 99 05/28/17 00:19 05/28/17 00:19 05/28/17 00:19 05/28/17 00:19 05/28/17 00:19 Intake and Output: 05/27/17 05/28/17 18:59 06:59 Intake Total 780 Output Total 650 Balance 130 - Medications Medications: Current Medications Albuterol/Ipratropium (Duoneb 3 Mg/0.5 Mg (3 Ml) Ud) 3 ml INH RQ6 [facility] Last Admin: 05/27/17 19:38 Dose: 3 ml Aspirin (Ecotrin) 325 mg PO DAILY [facility] Last Admin: 05/27/17 09:55 Dose: 325 mg Atorvastatin Calcium (Lipitor) 40 mg PO DAILY [facility] Last Admin: 05/27/17 09:55 Dose: 40 mg Enoxaparin Sodium (Lovenox) 40 mg SC DAILY [facility] PRN Reason: Protocol Last Admin: 05/27/17 14:13 Dose: 40 mg Dextrose/Sodium Chloride (Dextrose 5%/0.45% Ns 1000 Ml) 1,000 mls @ 60 mls/hr IV .[id number] [facility] Stop: 05/28/17 12:23 Last Admin: 05/27/17 12:42 Dose: 60 mls/hr Nystatin (Nystop Topical Powder) 1 applic TOP TID [facility] Last Admin: 05/27/17 16:49 Dose: 1 applic - Labs Labs: 05/25/17 06:30 05/25/17 06:30 Assessment and Plan (1) CVA (cerebral vascular accident) Status: Acute (2) Cerebral aneurysm Status: Chronic (3) Dementia Status: Chronic (4) Meningioma Status: Chronic (5) Altered mental status Status: Acute (6) Headache Status: Acute (7) DMII (diabetes mellitus, type 2) Status: Chronic (8) Dementia Status: Chronic
[2017-05-28] MEDS: Albuterol-Ipratrop 3 mg / 0.5 (3 ml) UD INH SCH ×4 (01:26→19:20)
[2017-05-28 05:58] LABS: HEMATOCRIT 39.3 % (34.0-47.0); MEAN CORPUSCULAR HEMOGLOBIN 28.4 pg (27.0-31.0); MEAN CORPUSCULAR HGB CONC 32.6 g/dL (33.0-37.0); RED CELL DISTRIBUTION WIDTH 14.4 % (11.5-14.5); WHITE BLOOD COUNT 9.9 K/uL (4.8-10.8)
[2017-05-28 06:16] LABS: BLOOD UREA NITROGEN 10 mg/dl (7-17); CALCIUM 8.4 mg/dL (8.4-10.2); CARBON DIOXIDE 29 mmol/L (22-30); CHLORIDE 99 mmol/L (98-107); GFR AFRICAN-AMERICAN > 60; GLUCOSE,RANDOM 203 mg/dL (65-105); POTASSIUM 2.7 MMOL/L (3.6-5.0); SODIUM 133 mmol/l (132-148)
[2017-05-28] MEDS ORDERED: Potassium CL 10 MEQ/50 ML 50 ML IVPB SCH (08:30)
[2017-05-28] MEDS: Potassium Chloride 20 mEq/15 ml LIQ UD PO ONE ×2 (09:27→09:51)
[2017-05-28] MEDS: Aspirin 325 mg EC Tablets PO SCH ×2 (09:28→09:52)
[2017-05-28] MEDS: Dextrose 5%/0.45% NS 1,000 ML IV SCH (09:28)
[2017-05-28] MEDS: Enoxaparin 40 mg Syringe SC SCH (09:28)
--- NOTE | 2017-05-28 15:58 | CP.PCM.PN ---
Subjective - Date & Time of Evaluation Date of Evaluation: 05/28/17 Time of Evaluation: 13:00 - Subjective Subjective: no overnight events Objective - Vital Signs/Intake and Output Vital Signs (last 24 hours): Temp Pulse Resp BP Pulse Ox 98.3 F 100 H 20 173/85 H 95 05/28/17 12:00 05/28/17 12:00 05/28/17 12:00 05/28/17 12:00 05/28/17 12:00 - Medications Medications: Current Medications Albuterol/Ipratropium (Duoneb 3 Mg/0.5 Mg (3 Ml) Ud) 3 ml INH RQ6 [facility] Last Admin: 05/28/17 13:29 Dose: 3 ml Aspirin (Ecotrin) 325 mg PO DAILY [facility] Last Admin: 05/28/17 09:52 Dose: Not Given Atorvastatin Calcium (Lipitor) 40 mg PO DAILY [facility] Last Admin: 05/28/17 09:51 Dose: Not Given Enoxaparin Sodium (Lovenox) 40 mg SC DAILY [facility] PRN Reason: Protocol Last Admin: 05/28/17 09:28 Dose: 40 mg Cefazolin Sodium/Dextrose (Ancef Iv 1 Gm Duplex) 1 gm in 50 mls @ 50 mls/hr IVPB ONCE ONE PRN Reason: Protocol Stop: 05/28/17 16:59 Nystatin (Nystop Topical Powder) 1 applic TOP TID [facility] Last Admin: 05/28/17 12:00 Dose: 1 applic - Labs Labs: 05/28/17 04:25 05/28/17 04:25 PT 13.8 Seconds (9.8-13.1) H 05/28/17 04:25 INR 1.2 (0.9-1.2) 05/28/17 04:25 - Head Exam Head Exam: NORMAL INSPECTION - Respiratory Exam Respiratory Exam: NORMAL BREATHING PATTERN - Cardiovascular Exam Cardiovascular Exam: REGULAR RHYTHM - GI/Abdominal Exam GI & Abdominal Exam: Soft, Normal Bowel Sounds Assessment and Plan - Assessment and Plan (Free Text) Assessment: 82 yo female with FTT peg tomorrow d/w family, staff, PMD
[2017-05-28] MEDS ORDERED: ceFAZolin IV 1 gm in Dextrose 1 GM/50 ML BAG IVPB ONE (16:00)
--- NOTE | 2017-05-28 16:03 | CP.PCM.PN ---
Subjective - Date & Time of Evaluation Date of Evaluation: 05/28/17 Time of Evaluation: 08:40 - Subjective Subjective: F/U CVA Pt awake, able to talk, answer questions, move RUE and RLE toe on command, able to lifted against gravity. Objective - Vital Signs/Intake and Output Vital Signs (last 24 hours): Temp Pulse Resp BP Pulse Ox 98.3 F 100 H 20 173/85 H 95 05/28/17 12:00 05/28/17 12:00 05/28/17 12:00 05/28/17 12:00 05/28/17 12:00 - Medications Medications: Current Medications Albuterol/Ipratropium (Duoneb 3 Mg/0.5 Mg (3 Ml) Ud) 3 ml INH RQ6 [facility] Last Admin: 05/28/17 13:29 Dose: 3 ml Aspirin (Ecotrin) 325 mg PO DAILY [facility] Last Admin: 05/28/17 09:52 Dose: Not Given Atorvastatin Calcium (Lipitor) 40 mg PO DAILY [facility] Last Admin: 05/28/17 09:51 Dose: Not Given Enoxaparin Sodium (Lovenox) 40 mg SC DAILY [facility] PRN Reason: Protocol Last Admin: 05/28/17 09:28 Dose: 40 mg Cefazolin Sodium/Dextrose (Ancef Iv 1 Gm Duplex) 1 gm in 50 mls @ 50 mls/hr IVPB ONCE ONE PRN Reason: Protocol Stop: 05/28/17 16:59 Nystatin (Nystop Topical Powder) 1 applic TOP TID [facility] Last Admin: 05/28/17 12:00 Dose: 1 applic - Labs Labs: 05/28/17 04:25 05/28/17 04:25 PT 13.8 Seconds (9.8-13.1) H 05/28/17 04:25 INR 1.2 (0.9-1.2) 05/28/17 04:25 - Constitutional Appears: No Acute Distress, Chronically Ill - Head Exam Head Exam: NORMAL INSPECTION - Eye Exam Eye Exam: PERRL - ENT Exam ENT Exam: Normal Exam - Neck Exam Neck Exam: Normal Inspection - Respiratory Exam Respiratory Exam: Decreased Breath Sounds (at bases) - Cardiovascular Exam Cardiovascular Exam: REGULAR RHYTHM - GI/Abdominal Exam GI & Abdominal Exam: Soft, Normal Bowel Sounds - Extremities Exam Extremities Exam: Normal Inspection - Back Exam Back Exam: NORMAL INSPECTION - Neurological Exam Neurological Exam: Awake Additional comments: Able to talk, no facial asymmetry, R hemiplegia. - Psychiatric Exam Psychiatric exam: Normal Mood - Skin Skin Exam: Warm Assessment and Plan (1) CVA (cerebral vascular accident) Status: Acute (2) Dementia Status: Chronic (3) Meningioma Status: Chronic (4) Cerebral aneurysm Status: Chronic (5) Hypertension Status: Chronic (6) DMII (diabetes mellitus, type 2) Status: Chronic - Assessment and Plan (Free Text) Plan: CT Abd/Pelv was unremarkable. For Peg tube tomorrow.
[2017-05-28 21:26] LABS: HEMATOCRIT 41.4 % (34.0-47.0); MEAN CELL VOLUME 86.5 fl (81.0-99.0); MEAN CORPUSCULAR HEMOGLOBIN 28.6 pg (27.0-31.0); MEAN CORPUSCULAR HGB CONC 33.1 g/dL (33.0-37.0); RED CELL DISTRIBUTION WIDTH 14.6 % (11.5-14.5); WHITE BLOOD COUNT 10.5 K/uL (4.8-10.8)
[2017-05-28 21:42] LABS: PARTIAL THROMBOPLASTIN TIME 28.9 Seconds (25.6-37.1)
[2017-05-28 22:50] LABS: BLOOD UREA NITROGEN 8 mg/dl (7-17); CALCIUM 8.6 mg/dL (8.4-10.2); CARBON DIOXIDE 24 mmol/L (22-30); CHLORIDE 99 mmol/L (98-107); GFR AFRICAN-AMERICAN > 60; GLUCOSE,RANDOM 203 mg/dL (65-105); POTASSIUM 2.9 MMOL/L (3.6-5.0); SODIUM 133 mmol/l (132-148)
--- NOTE | 2017-05-29 00:58 | CP.PCM.PN ---
Subjective - Date & Time of Evaluation Date of Evaluation: 05/28/17 Time of Evaluation: 21:40 - Subjective Subjective: Patient has a normal CT Abdomen, she is for a PEG tube in AM. Objective - Vital Signs/Intake and Output Vital Signs (last 24 hours): Temp Pulse Resp BP Pulse Ox 98.4 F 116 H 18 157/91 H 94 L 05/29/17 00:53 05/29/17 00:53 05/29/17 00:53 05/29/17 00:53 05/29/17 00:53 Intake and Output: 05/28/17 05/29/17 18:59 06:59 Intake Total 950 Output Total 550 Balance 400 - Medications Medications: Current Medications Albuterol/Ipratropium (Duoneb 3 Mg/0.5 Mg (3 Ml) Ud) 3 ml INH RQ6 [facility] Last Admin: 05/28/17 19:20 Dose: 3 ml Aspirin (Ecotrin) 325 mg PO DAILY [facility] Last Admin: 05/28/17 09:52 Dose: Not Given Atorvastatin Calcium (Lipitor) 40 mg PO DAILY [facility] Last Admin: 05/28/17 09:51 Dose: Not Given Enoxaparin Sodium (Lovenox) 40 mg SC DAILY [facility] PRN Reason: Protocol Last Admin: 05/28/17 09:28 Dose: 40 mg Potassium Chloride 10 meq/ (Sodium Chloride) 1,005 mls @ 75 mls/hr IV .[id number] [facility] Stop: 05/29/17 22:40 Last Admin: 05/28/17 23:18 Dose: 75 mls/hr Nystatin (Nystop Topical Powder) 1 applic TOP TID [facility] Last Admin: 05/28/17 18:13 Dose: Not Given - Labs Labs: 05/28/17 20:30 05/28/17 20:30 PT 13.3 Seconds (9.8-13.1) H 05/28/17 21:30 INR 1.2 (0.9-1.2) 05/28/17 21:30 APTT 28.9 Seconds (25.6-37.1) 05/28/17 21:30 Assessment and Plan (1) CVA (cerebral vascular accident) Status: Acute (2) Cerebral aneurysm Status: Chronic (3) Dementia Status: Chronic (4) Meningioma Status: Chronic (5) Altered mental status Status: Acute (6) Headache Status: Acute (7) DMII (diabetes mellitus, type 2) Status: Chronic (8) Dementia Status: Chronic
[2017-05-29] MEDS: Albuterol-Ipratrop 3 mg / 0.5 (3 ml) UD INH SCH ×4 (01:14→19:22)
--- NOTE | 2017-05-29 01:36 | CP.PCM.CON ---
History of Present Illness - History of Present Illness History of Present Illness: Consultation for tachycardia HPI: Past Patient History - Past Medical History & Family History Past Medical History?: Yes - Past Social History Alcohol: None Drugs: Denies - CARDIAC Hx Hypertension: Yes - PULMONARY Hx Bronchitis: Yes - NEUROLOGICAL Hx Alzheimer's Disease: Yes Hx Dementia: Yes Hx Transient Ischemic Attacks (TIA): Yes - HEENT Hx HEENT Problems: Yes (Use eyeglasses) - RENAL Hx Chronic Kidney Disease: No - ENDOCRINE/METABOLIC Hx Diabetes Mellitus Type 2: Yes - HEMATOLOGICAL/ONCOLOGICAL Hx Blood Disorders: No Hx AIDS: No Hx Human Immunodeficiency Virus (HIV): No - INTEGUMENTARY Hx Dermatological Problems: No - MUSCULOSKELETAL/RHEUMATOLOGICAL Hx Arthritis: Yes - GASTROINTESTINAL Hx Gall Bladder Disease: Yes - GENITOURINARY/GYNECOLOGICAL Hx Genitourinary Disorders: Yes Hx Incontinence: Yes - PSYCHIATRIC Hx Anxiety: Yes - SURGICAL HISTORY Hx Cholecystectomy: Yes - ANESTHESIA Hx Anesthesia: Yes Hx Anesthesia Reactions: No Hx Malignant Hyperthermia: No Has any member of the family had a problem w/ anesthesia?: No Meds Home Medications: Home Medication List Medication Instructions Recorded Confirmed Type Albuterol/Ipratropium [Duoneb 3 3 ml INH RQ6 neb 05/27/17 Rx mg/0.5 mg (3 ml) UD] Atorvastatin [Lipitor] 40 mg PO DAILY tab 05/27/17 Rx Dextrose 5%-0.45% NS [Dextrose 1,000 ml IV DAILY #1 bag 05/27/17 Rx 5%-0.45% NS 500 ml] Enoxaparin [Lovenox] 40 mg SC DAILY syr 05/27/17 Rx Nystatin [Nystop Topical Powder] 1 applic TOP TID bottle 05/27/17 Rx Allergies/Adverse Reactions: Allergies Allergy/AdvReac Type Severity Reaction Status Date / Time No Known Allergies Allergy Verified 05/24/17 10:51 - Medications Medications: Current Medications Albuterol/Ipratropium (Duoneb 3 Mg/0.5 Mg (3 Ml) Ud) 3 ml INH RQ6 [facility] Last Admin: 05/29/17 01:14 Dose: Not Given Aspirin (Ecotrin) 325 mg PO DAILY [facility] Last Admin: 05/28/17 09:52 Dose: Not Given Atorvastatin Calcium (Lipitor) 40 mg PO DAILY [facility] Last Admin: 05/28/17 09:51 Dose: Not Given Enoxaparin Sodium (Lovenox) 40 mg SC DAILY [facility] PRN Reason: Protocol Last Admin: 05/28/17 09:28 Dose: 40 mg Potassium Chloride 10 meq/ (Sodium Chloride) 1,005 mls @ 75 mls/hr IV .[id number] [facility] Stop: 05/29/17 22:40 Last Admin: 05/28/17 23:18 Dose: 75 mls/hr Nystatin (Nystop Topical Powder) 1 applic TOP TID [facility] Last Admin: 05/28/17 18:13 Dose: Not Given Results - Vital Signs Recent Vital Signs: Last Vital Signs Temp 98.4 F 05/29/17 00:53 Pulse 116 H 05/29/17 00:53 Resp 18 05/29/17 00:53 BP 157/91 H 05/29/17 00:53 Pulse Ox 94 L 05/29/17 00:53 - Labs Result Diagrams: 05/28/17 20:30 05/28/17 20:30 Labs: Laboratory Results - last 24 hr 05/28/17 05/28/17 05/28/17 04:25 04:25 04:25 WBC 9.9 RBC 4.51 Hgb 12.8 Hct 39.3 MCV 87.0 MCH 28.4 MCHC 32.6 L RDW 14.4 Plt Count 198 PT 13.8 H INR 1.2 APTT D-Dimer, Quantitative Sodium 133 Potassium 2.7 L Chloride 99 Carbon Dioxide 29 Anion Gap 8 L BUN 10 Creatinine 0.5 L Est GFR ( Amer) > 60 Est GFR (Non-Af Amer) > 60 POC Glucose (mg/dL) Random Glucose 203 H Calcium 8.4 05/28/17 05/28/17 05/28/17 05:10 11:14 16:11 WBC RBC Hgb Hct MCV MCH MCHC RDW Plt Count PT INR APTT D-Dimer, Quantitative Sodium Potassium Chloride Carbon Dioxide Anion Gap BUN Creatinine Est GFR ( Amer) Est GFR (Non-Af Amer) POC Glucose (mg/dL) 214 H 203 H 208 H Random Glucose Calcium 05/28/17 05/28/17 05/28/17 20:30 20:30 21:23 WBC 10.5 RBC 4.78 Hgb 13.7 Hct 41.4 MCV 86.5 MCH 28.6 MCHC 33.1 RDW 14.6 H Plt Count 210 PT INR APTT D-Dimer, Quantitative 1896 H Sodium 133 Potassium 2.9 L Chloride 99 Carbon Dioxide 24 Anion Gap 13 BUN 8 Creatinine 0.5 L Est GFR ( Amer) > 60 Est GFR (Non-Af Amer) > 60 POC Glucose (mg/dL) Random Glucose 203 H Calcium 8.6 05/28/17 05/28/17 21:30 22:18 WBC RBC Hgb Hct MCV MCH MCHC RDW Plt Count PT 13.3 H INR 1.2 APTT 28.9 D-Dimer, Quantitative Sodium Potassium Chloride Carbon Dioxide Anion Gap BUN Creatinine Est GFR ( Amer) Est GFR (Non-Af Amer) POC Glucose (mg/dL) 190 H Random Glucose Calcium Assessment & Plan (1) Tachycardia Status: Acute (2) CVA (cerebral vascular accident) Status: Acute (3) Dementia Status: Chronic (4) Altered mental status Status: Acute Priority: High (5) Hypertension Status: Chronic Priority: High
[2017-05-29 05:59] LABS: BLOOD UREA NITROGEN 8 mg/dl (7-17); CALCIUM 8.2 mg/dL (8.4-10.2); CARBON DIOXIDE 28 mmol/L (22-30); CHLORIDE 101 mmol/L (98-107); GFR AFRICAN-AMERICAN > 60; GLUCOSE,RANDOM 177 mg/dL (65-105); SODIUM 136 mmol/l (132-148)
[2017-05-29] MEDS: Aspirin 325 mg EC Tablets PO SCH (09:19)
--- NOTE | 2017-05-29 11:38 | US ---
PROCEDURE: Bilateral lower extremity venous duplex Doppler. HISTORY: rull out dvt COMPARISON: None available. TECHNIQUE: Bilateral common femoral, superficial femoral, popliteal and posterior tibial veins were evaluated. Flow was assessed with color Doppler, compressibility, assessment of phasic flow and augmentation response. FINDINGS: COMMON FEMORAL VEIN: Right CFV: Unremarkable. Left CFV: Unremarkable. SUPERFICIAL FEMORAL VEIN: Right SFV: Unremarkable. Left SFV: Unremarkable. POPLITEAL VEIN: Right Popliteal: Unremarkable. Left Popliteal: Unremarkable. POSTERIOR TIBIAL VEIN: Right PTV: Unremarkable. Left PTV: Unremarkable. OTHER FINDINGS: None. IMPRESSION: No evidence of deep venous thrombosis.
--- NOTE | 2017-05-29 11:47 | CARD ---
APPROVED REPORT EKG Measurement Heart [id number] SD [id number] [id number] <Conclusion> Sinus tachycardia Possible Left atrial enlargement Left ventricular hypertrophy Cannot rule out Septal infarct, age undetermined Abnormal ECG
--- NOTE | 2017-05-29 13:27 | CP.PCM.PCO ---
Assessment/Plan - Assessment and Plan (Free Text) Assessment: Discussed with Dr Byers, patient cleared for PEG tube placement scheduled for today.
[2017-05-29] MEDS ORDERED: Lactated Ringer's 1,000 ML IV ONE ×2 (14:43→14:50)
[2017-05-29] MEDS ORDERED: Lidocaine 2% MPF (5 ml) Inj ONE (14:49)
[2017-05-29] MEDS ORDERED: Etomidate 20 mg/10ml Inj IV ONE (14:49)
[2017-05-29] MEDS ORDERED: Propofol 10 mg/ml Inj (20 ML) ONE (14:57)
--- NOTE | 2017-05-29 15:59 | CP.PCM.PN ---
Subjective - Date & Time of Evaluation Date of Evaluation: 05/29/17 Time of Evaluation: 15:59 Objective - Vital Signs/Intake and Output Vital Signs (last 24 hours): Temp Pulse Resp BP Pulse Ox 98.7 F 110 H 22 163/48 H 96 05/29/17 15:24 05/29/17 15:24 05/29/17 15:24 05/29/17 15:24 05/29/17 15:24 Intake and Output: 05/29/17 05/29/17 06:59 18:59 Intake Total 140 Balance 140 - Medications Medications: Current Medications Albuterol/Ipratropium (Duoneb 3 Mg/0.5 Mg (3 Ml) Ud) 3 ml INH RQ6 [facility] Last Admin: 05/29/17 14:04 Dose: 3 ml Aspirin (Ecotrin) 325 mg PO DAILY [facility] Last Admin: 05/29/17 09:19 Dose: Not Given Atorvastatin Calcium (Lipitor) 40 mg PO DAILY [facility] Last Admin: 05/29/17 09:19 Dose: Not Given Enoxaparin Sodium (Lovenox) 40 mg SC DAILY [facility] PRN Reason: Protocol Last Admin: 05/28/17 09:28 Dose: 40 mg Potassium Chloride 10 meq/ (Sodium Chloride) 1,005 mls @ 75 mls/hr IV .[id number] [facility] Stop: 05/29/17 22:40 Last Admin: 05/28/17 23:18 Dose: 75 mls/hr Nystatin (Nystop Topical Powder) 1 applic TOP TID [facility] Last Admin: 05/29/17 10:21 Dose: 1 applic - Labs Labs: 05/28/17 20:30 05/29/17 12:40 PT 13.3 Seconds (9.8-13.1) H 05/28/17 21:30 INR 1.2 (0.9-1.2) 05/28/17 21:30 APTT 28.9 Seconds (25.6-37.1) 05/28/17 21:30 Assessment and Plan (1) Tachycardia Status: Acute (2) CVA (cerebral vascular accident) Status: Acute (3) Dementia Status: Chronic (4) Altered mental status Status: Acute (5) Hypertension Status: Chronic
--- NOTE | 2017-05-29 16:24 | CP.PCM.PN ---
Subjective - Date & Time of Evaluation Date of Evaluation: 05/29/17 Time of Evaluation: 10:30 - Subjective Subjective: F/U CVA. Pt awake, able to talk, follows commands. Objective - Vital Signs/Intake and Output Vital Signs (last 24 hours): Temp Pulse Resp BP Pulse Ox 98.7 F 110 H 22 163/48 H 96 05/29/17 15:24 05/29/17 15:24 05/29/17 15:24 05/29/17 15:24 05/29/17 15:24 Intake and Output: 05/29/17 05/29/17 06:59 18:59 Intake Total 140 Balance 140 - Medications Medications: Current Medications Albuterol/Ipratropium (Duoneb 3 Mg/0.5 Mg (3 Ml) Ud) 3 ml INH RQ6 [facility] Last Admin: 05/29/17 14:04 Dose: 3 ml Aspirin (Ecotrin) 325 mg PO DAILY [facility] Last Admin: 05/29/17 09:19 Dose: Not Given Atorvastatin Calcium (Lipitor) 40 mg PO DAILY [facility] Last Admin: 05/29/17 09:19 Dose: Not Given Enoxaparin Sodium (Lovenox) 40 mg SC DAILY [facility] PRN Reason: Protocol Last Admin: 05/28/17 09:28 Dose: 40 mg Potassium Chloride 10 meq/ (Sodium Chloride) 1,005 mls @ 75 mls/hr IV .[id number] [facility] Stop: 05/29/17 22:40 Last Admin: 05/28/17 23:18 Dose: 75 mls/hr Nystatin (Nystop Topical Powder) 1 applic TOP TID [facility] Last Admin: 05/29/17 10:21 Dose: 1 applic - Labs Labs: 05/28/17 20:30 05/29/17 12:40 PT 13.3 Seconds (9.8-13.1) H 05/28/17 21:30 INR 1.2 (0.9-1.2) 05/28/17 21:30 APTT 28.9 Seconds (25.6-37.1) 05/28/17 21:30 - Constitutional Appears: No Acute Distress, Chronically Ill - Head Exam Head Exam: NORMAL INSPECTION - Eye Exam Eye Exam: PERRL - ENT Exam ENT Exam: Normal Exam - Neck Exam Neck Exam: Normal Inspection - Respiratory Exam Respiratory Exam: Decreased Breath Sounds (at bases) - Cardiovascular Exam Cardiovascular Exam: REGULAR RHYTHM - GI/Abdominal Exam GI & Abdominal Exam: Soft, Normal Bowel Sounds - Extremities Exam Extremities Exam: Normal Inspection - Back Exam Back Exam: NORMAL INSPECTION - Neurological Exam Neurological Exam: Awake (able to talk, no facial asymmetry, R hemiplegia.) - Psychiatric Exam Psychiatric exam: Normal Mood - Skin Skin Exam: Warm Assessment and Plan (1) CVA (cerebral vascular accident) Status: Acute (2) Dementia Status: Chronic (3) Meningioma Status: Chronic (4) Cerebral aneurysm Status: Chronic (5) Hypertension Status: Chronic (6) DMII (diabetes mellitus, type 2) Status: Chronic - Assessment and Plan (Free Text) Plan: K- replacement, Doppler L lower extremity, OR for Peg Tube insertion.
--- NOTE | 2017-05-29 23:57 | CP.PCM.PN ---
Subjective - Date & Time of Evaluation Date of Evaluation: 05/29/17 Time of Evaluation: 21:00 - Subjective Subjective: She tolerated the PEG tube placement. She is doing better. CVA, Right Hemiplegia. Reported to be talking better than before. Objective - Vital Signs/Intake and Output Vital Signs (last 24 hours): Temp Pulse Resp BP Pulse Ox 98.3 F 104 H 20 164/80 H 96 05/29/17 19:26 05/29/17 19:26 05/29/17 19:26 05/29/17 19:26 05/29/17 19:26 Intake and Output: 05/29/17 05/30/17 18:59 06:59 Intake Total 990 Output Total 500 Balance 490 - Medications Medications: Current Medications Albuterol/Ipratropium (Duoneb 3 Mg/0.5 Mg (3 Ml) Ud) 3 ml INH RQ6 [facility] Last Admin: 05/29/17 19:22 Dose: 3 ml Aspirin (Ecotrin) 325 mg PO DAILY [facility] Last Admin: 05/29/17 09:19 Dose: Not Given Atorvastatin Calcium (Lipitor) 40 mg PO DAILY [facility] Last Admin: 05/29/17 09:19 Dose: Not Given Enoxaparin Sodium (Lovenox) 40 mg SC DAILY [facility] PRN Reason: Protocol Last Admin: 05/28/17 09:28 Dose: 40 mg Nystatin (Nystop Topical Powder) 1 applic TOP TID [facility] Last Admin: 05/29/17 19:50 Dose: Not Given - Labs Labs: 05/28/17 20:30 05/29/17 12:40 PT 13.3 Seconds (9.8-13.1) H 05/28/17 21:30 INR 1.2 (0.9-1.2) 05/28/17 21:30 APTT 28.9 Seconds (25.6-37.1) 05/28/17 21:30 Assessment and Plan (1) CVA (cerebral vascular accident) Status: Acute (2) Cerebral aneurysm Status: Chronic (3) Dementia Status: Chronic (4) Meningioma Status: Chronic (5) Altered mental status Status: Acute (6) Headache Status: Acute (7) DMII (diabetes mellitus, type 2) Status: Chronic (8) Dementia Status: Chronic
[2017-05-30] MEDS: Albuterol-Ipratrop 3 mg / 0.5 (3 ml) UD INH SCH ×3 (01:06→13:30)
[2017-05-30 07:53] VITALS: RESP 20
[2017-05-30] MEDS: Aspirin 325 mg EC Tablets PO SCH (08:53)
[2017-05-30 12:07] VITALS: BP 162/80; PULSE 107; TEMP 97.9; O2SAT 94
--- NOTE | 2017-05-31 09:25 | EEG ---
DATE: 05/27/2017 This is a 16-channel electroencephalogram of awake and lethargic adult. During the study, photic stimulation was performed. Hyperventilation was not performed. CONDITION OF THE RECORDING: The standard electroencephalogram consisted of 40-50 microvolt diffuse 5-7 Hz. High theta activity is noted at the parietal and occipital leads, activity superimposed with 2 to 3 Hz of delta activity seen in the frontal and central leads. Sometimes, these activities show little higher amplitude with the same frequency noted. Some movement artifacts contaminated background rhythm. The photic stimulation did not develop any response noted at 2 to 20 Hz. IMPRESSION: This is a mildly abnormal electroencephalogram because of persistent slowing throughout the recording for his age suggestive of bilateral cerebral dysfunction. This is probably secondary to metabolic or vascular degenerative process. Please correlate the finding with neurological and radiological studies. Aron Whaley MD
--- NOTE | 2017-05-31 10:33 | CP.PCM.PN ---
Subjective - Date & Time of Evaluation Date of Evaluation: 05/30/17 Time of Evaluation: 11:10 - Subjective Subjective: F/U CVA Pt awake, answering questions, had peg tube yesterday Objective - Vital Signs/Intake and Output Vital Signs (last 24 hours): Temp Pulse Resp BP Pulse Ox 97.9 F 107 H 20 162/80 H 94 L 05/30/17 12:00 05/30/17 12:00 05/30/17 12:00 05/30/17 12:00 05/30/17 12:00 - Labs Labs: 05/28/17 20:30 05/29/17 12:40 PT 13.3 Seconds (9.8-13.1) H 05/28/17 21:30 INR 1.2 (0.9-1.2) 05/28/17 21:30 APTT 28.9 Seconds (25.6-37.1) 05/28/17 21:30 - Constitutional Appears: No Acute Distress, Chronically Ill - Head Exam Head Exam: NORMAL INSPECTION - Eye Exam Eye Exam: PERRL - ENT Exam ENT Exam: Normal Exam - Neck Exam Neck Exam: Normal Inspection - Respiratory Exam Respiratory Exam: Decreased Breath Sounds (at bases) - Cardiovascular Exam Cardiovascular Exam: REGULAR RHYTHM - GI/Abdominal Exam GI & Abdominal Exam: Soft, Normal Bowel Sounds Additional comments: Peg tube in place - Extremities Exam Extremities Exam: Normal Inspection - Back Exam Back Exam: NORMAL INSPECTION - Neurological Exam Neurological Exam: Awake Additional comments: Moves RUE, R foot and R toes on commands, R hemiplegia. - Psychiatric Exam Psychiatric exam: Normal Mood - Skin Skin Exam: Normal Color, Warm Assessment and Plan (1) CVA (cerebral vascular accident) Status: Acute (2) Dementia Status: Chronic (3) Meningioma Status: Chronic (4) Cerebral aneurysm Status: Chronic (5) Hypertension Status: Chronic (6) DMII (diabetes mellitus, type 2) Status: Chronic - Assessment and Plan (Free Text) Plan: Pt improved and stable to be transferred to [facility] at [facility], I will follow Pt in these facility.
== END 2017-05-30 13:46 | DRG 65 ==
LOC: H.ER 10:35 → H.ERHOLD 12:50 → H.TEL 14:40
PROVIDERS: ADMIT Internal Medicine Pulmonary Disease; ATTEND Internal Medicine Pulmonary Disease
PROC: 3E0G76Z Introduction of Nutritional Substance into Upper GI, Via Natural or Artificial Opening (ICD-10-PCS; 2017-05-29)
PROC: 0DH63UZ Insertion of Feeding Device into Stomach, Percutaneous Approach (ICD-10-PCS; principal; 2017-05-29 14:30)
DX: I63.9 Cerebral infarction, unspecified (principal); G81.01 Flaccid hemiplegia affecting right dominant side; I67.1 Cerebral aneurysm, nonruptured; G30.9 Alzheimer's disease, unspecified; F02.80 Dementia in other diseases classified elsewhere, unspecified severity, without behavioral disturbance, psychotic disturbance, mood disturbance, and anxiety; I10 Essential (primary) hypertension; R62.7 Adult failure to thrive; E11.9 Type 2 diabetes mellitus without complications; Z86.011 Personal history of benign neoplasm of the brain; Z86.73 Personal history of transient ischemic attack (TIA), and cerebral infarction without residual deficits; R00.0 Tachycardia, unspecified; F41.9 Anxiety disorder, unspecified; M19.90 Unspecified osteoarthritis, unspecified site; R32 Unspecified urinary incontinence

== ENCOUNTER 2017-12-30 13:45 | Inpatient (IN) | payer MEDICARE, MEDICAID ==
[2017-12-30 13:45] VITALS: BMI 30.2
[2017-12-30 14:11] LABS: BASO # 0.1 K/uL (0.0-0.2); BASO % 0.8 % (0.0-2.0); EOS # 0.4 K/uL (0.0-0.7); EOS % 3.2 % (0.0-4.0); HEMOGLOBIN 16.9 g/dL (12.0-16.0); LYMPH # 3.6 K/uL (1.0-4.3); LYMPH % 29.6 % (20.0-40.0); MEAN CELL VOLUME 93.3 fl (81.0-99.0); MEAN CORPUSCULAR HGB CONC 32.2 g/dL (33.0-37.0); MEAN PLATELET VOLUME 9.6 fl (7.2-11.7); MONO # 0.7 K/uL (0.0-0.8); MONO % 5.6 % (0.0-10.0); NEUT # 7.3 K/uL (1.8-7.0); NEUT % 60.8 % (50.0-75.0); NRBC % 0.2 % (0.0-0.0); RBC 5.63 Mil/uL (3.80-5.20); RED CELL DISTRIBUTION WIDTH 14.1 % (11.5-14.5); WHITE BLOOD COUNT 12.1 K/uL (4.8-10.8)
[2017-12-30] MEDS ORDERED: Labetalol 5 mg/ml Inj 20ML IVP STA (14:14)
[2017-12-30 14:25] LABS: ALB/GLOB RATIO 0.9 (1.0-2.1); CALCIUM 11.2 mg/dL (8.4-10.2); GFR AFRICAN-AMERICAN > 60; GFR NON-AFRICAN AMERICAN > 60
--- NOTE | 2017-12-30 14:31 | RAD ---
PROCEDURE: CHEST RADIOGRAPH, 1 VIEW HISTORY: sizure COMPARISON: Chest radiograph 05/19/2017. FINDINGS: LUNGS: No acute airspace disease identified bilaterally. PLEURA: No pneumothorax or pleural fluid seen. CARDIOVASCULAR: Stable cardiac silhouette appreciated. Dense mitral annular calcification reiterated. OSSEOUS STRUCTURES: Old healed left 8th rib fracture again evident. VISUALIZED UPPER ABDOMEN: Normal. OTHER FINDINGS: None. IMPRESSION: No interval acute cardiopulmonary disease appreciated.
[2017-12-30 14:34] LABS: ALT/SGPT 17 U/L (9-52); AST/SGOT 38 U/L (14-36); BLOOD UREA NITROGEN 16 mg/dl (7-17)
--- NOTE | 2017-12-30 14:39 | ED PDOC ---
HPI: Seizure Time Seen by Provider: 12/30/17 13:55 Chief Complaint (Nursing): Seizure Chief Complaint (Provider): Seizure History Per: Other History/Exam Limitations: clinical condition Additional Complaint(s): 82-year-old female brought in by EMS (sent from [facility]) arrived after several recurrent seizures today. On arrival to ER, pt is actively seizing right gaze preference. Further hx cannot be obtained. Per transport paper, pt has a history of CVA and Cerebral Aneurysm. PMD: Keith Red NIHSS Stroke Scale - Date/Time Evaluation Performed Date Performed: 01/02/18 Time Performed: 14:00 When Was NIHSS Performed: Baseline - How Severe is the Stroke Level of Consciousness: 2=Obtunded LOC to Questions: 2=Neither correct LOC to commands: 2=Neither correct Best Gaze: 2=Forced deviation Visual: 0=No visual loss (unable to assess due to patient's current mental state ) Facial: 0=Normal Motor Arm - Left: 4=No movement Motor Arm - Right: 4=No movement Motor Leg - Left: 4=No movement Motor Leg - Right: 4=No movement Limb Ataxia: 0=Absent Sensory: 2=Severe to total loss Best Language: 3=Mute Dysarthia: 2=Severe, near unintelligible or worse Extinction & Inattention (Neglect): 2=Profound neglect(does not recognize own hand or orients to one side) Score: 33 Past Medical History Reviewed: Historical Data, Nursing Documentation, Vital Signs Vital Signs: Last Vital Signs Temp 98.2 F 01/03/18 12:16 Pulse 116 H 01/03/18 15:32 Resp 18 01/03/18 12:16 BP 151/74 H 01/03/18 12:16 Pulse Ox 100 01/03/18 15:32 - Medical History PMH: Alzheimer's Disease, Anxiety, Arthritis, Bronchitis, CVA, Dementia, Gall Bladder Disease, HTN, TIA Denies: HIV, Chronic Kidney Disease - Surgical History Surgical History: Cholecystectomy - Family History Family History: States: Unknown Family Hx - Home Medications Home Medications: Ambulatory Orders Medication Instructions Recorded Nitroglycerin 0.1 mg/hr [Nitro-Dur 1 patch TD DAILY #30 patch 05/23/17 0.1 mg/hr Patch] Acetaminophen [Tylenol 160mg/5ml 640 mg PEG Q4 PRN 12/30/17 Oral Soln] Acetaminophen [Tylenol 160mg/5ml 640 mg PEG Q4 PRN 12/30/17 Oral Soln] Albuterol/Ipratropium [Duoneb 3 3 ml INH Q6 12/30/17 mg/0.5 mg (3 ml) UD] Atorvastatin [Lipitor] 40 mg PEG DAILY 12/30/17 Bisacodyl [Dulcolax] 10 mg KS DAILY PRN 12/30/17 Carvedilol [Coreg] 6.25 mg PEG Q12 12/30/17 Donepezil HCl [Aricept Odt] 5 mg PEG DAILY 12/30/17 Insulin Lispro [humALOG] 4 unit SC ACTID 12/30/17 Lisinopril [Zestril] 20 mg PEG BID 12/30/17 Magnesium Hydroxide [Milk Of 30 ml PEG HS PRN 12/30/17 Magnesia] Omeprazole 40 mg PEG DAILY 12/30/17 amLODIPine [Norvasc] 2.5 mg PEG DAILY 12/30/17 Aspirin [Aspirin Chewable] 81 mg PEG DAILY chew 01/03/18 Clopidogrel [Plavix] 75 mg PEG DAILY tab 01/03/18 levETIRAcetam Solution [Keppra] 1,000 mg PO Q12 #60 bottle 01/03/18 - Allergies Allergies/Adverse Reactions: Allergies Allergy/AdvReac Type Severity Reaction Status Date / Time No Known Allergies Allergy Verified 12/30/17 13:46 Review of Systems Review Of Systems: ROS cannot be obtained secondary to pt's inabilty to answer questions. (Caveat: Pt's clinical condition) Physical Exam - Reviewed Nursing Documentation Reviewed: Yes Vital Signs Reviewed: Yes - Physical Exam Appears: Negative for: Well ((+) Actively seizing with right gaze preference) Respiratory: Positive for: Other (Rhonchorous breath sounds) Gastrointestinal/Abdominal: Negative for: Tenderness Neurologic/Psych: Positive for: Other ((+) hypertensisity due to seizing) - Laboratory Results Result Diagrams: 01/02/18 10:55 01/02/18 10:55 - ECG ECG: Positive for: Interpreted By Ct ECG Rhythm: Positive for: Sinus Tachycardia, Nonspecific Changes Rate: 116 O2 Sat by Pulse Oximetry: 100 (RA) Pulse Ox Interpretation: Normal - Radiology X-Ray: Interpreted by Me X-Ray Interpretation: No Acute Disease - CT Scan/US CT brain Other Rad Studies (CT/US): Radiology Report Reviewed - Critical Care Total Time (In Min): 75 Comments: patient required immediate and sustained bedside physician attention Medical Decision Making Medical Decision Making: Obtain CT r/o cerebral bleed. Rectal temp afebrile. Blood work, Ativan, NS initiated load with Keppra 750 mg Plan: - CT Head w/o Contrast - EKG - Alcohol Serum - CMP - Creatine Phosphokinase - Drug Screen, Urine - Magnesium - CBC (with differential) - CXR - Glucose, POC Routine - Ativan 1 mg IVP - Keppra 750 mg Sodium Chloride 0.9% 100 ml IVPB - Ativan 1 mg IVP - Trandate 10 mg IVP Time: 14:29 Chest X-Ray IMPRESSION: No interval acute cardiopulmonary disease appreciated. Glucose, Blood, POC reveals 265 mg/dL [high] WBC reveals 12.1 K/uL [high] 15:[address] FINDINGS: HEMORRHAGE: No acute parenchymal, subarachnoid or extra-axial hemorrhage. BRAIN: Previously noted acute/subacute left [employer] territory infarct (that involves the left posterior temporal and left posterior occipito parietal watershed zone extending superiorly to near the vertex in the left parietal region) has undergone evolution with interval development of partially cystic encephalomalacia and few scattered dystrophic type calcifications along the overlying cortex. There also has been the interval development of ex vacuo dilatation left temporal horn, atrium/ occipital horn,, posterior body left lateral ventricle. Moderate diffuse/confluent chronic white matter ischemic changes seen extending peripherally into the deep and subcortical white matter both cerebral hemispheres. There is also some extension of these changes into the white matter tracts of both basal nuclei. Re- demonstrated is enlarged subarachnoid space involving the left aspect of the posterior fossa. Re- demonstrated are localized extra-axial calcifications left superior frontal region that could right represent incidental meningioma unchanged from prior study. Vascular calcifications both carotid and vertebral arteries. VENTRICLES: As mentioned above, there is ex vacuo dilatation of the left temporal horn left atrium and left occipital horn as well as posterior body left lateral ventricle. Moderate dilatation of the entire ventricular system not withstanding the aforementioned changes consistent with central volume loss. . . CALVARIUM: No acute calvarial fractures. PARANASAL SINUSES: There is partial opacification right maxillary antrum with marked sclerosis and left thickening of the right posterolateral maxillary sinus wall. There is also mild thickening and sclerosis of the medial wall right maxillary sinus as well. . Partial opacification several left-sided inferior mastoid air cells. MASTOID AIR CELLS: Unremarkable as visualized. No inflammatory changes. OTHER FINDINGS: Rightward conjugate gaze noted. Orbits and contents otherwise unremarkable. IMPRESSION: No acute intracranial hemorrhage. The evolution previously noted left [employer] territory infarct with residuals partially cystic encephalomalacia and ex vacuo dilatation of portions of the left lateral ventricle as detailed above. Chronic white matter ischemic changes. Moderate central volume loss. Re- demonstrated are localized extra-axial calcifications left superior frontal region that could right represent incidental meningioma unchanged from prior study. 16:04 Pt is seizing again (status epilepticus). 16:04 - Ativan 1 mg IVP STAT 16:[address] Borges (Neurology) 16:14 - Keppra 750 mg Sodium Chloride 0.9% 100 ml IVPB - Depacon Inj 1,000 ml Sodium Chloride 0.9% 100 ml IVPB 16:28 As per RN, daughter wants to speak with ED provider. Daughter d/w brother (POA) who states wishes for DNR/DNI to be made. Admit Dr Red, case discussed. Dr Borges requested adding depakote and additional dose keppra 750mg for presumed status epilepticus. Given seizing on arrival with status epilepticus and requiring repeat dosing ativan, unable to gain accurate idea of motor/sensory exam if acute CVA present and cause of status. Hold ASA given status and concern for potential small SAH causing symptoms. Patient DNR/DNI. Dr Borges neuro saw patient in ED. Scribe Attestation: Documented by Royal Lay, acting as a scribe for Christopher Rodriguez III, DO Provider Scribe Attestation: All medical record entries made by the Scribe were at my direction and personally dictated by me. I have reviewed the chart and agree that the record accurately reflects my personal performance of the history, physical exam, medical decision making, and the department course for this patient. I have also personally directed, reviewed, and agree with the discharge instructions and disposition. Disposition - Clinical Impression Clinical Impression: Status epilepticus, CVA (cerebral vascular accident) - Patient ED Disposition Is Patient to be Admitted: Yes Counseled Patient/Family Regarding: Studies Performed, Diagnosis (d/w daughter and PMD) - Disposition Disposition Time: 16:01 Condition: FAIR
--- NOTE | 2017-12-30 15:39 | CT ---
PROCEDURE: CT HEAD WITHOUT CONTRAST. HISTORY: New onset seizure. COMPARISON: Comparison made with prior CT scan and MRI brain both dated 05/24/2017 TECHNIQUE: Axial computed tomography images were obtained through the head/brain without intravenous contrast. Radiation dose: Total exam DLP = 757.07 mGy-cm. . . This CT exam was performed using one or more of the following dose reduction techniques: Automated exposure control, adjustment of the mA and/or kV according to patient size, and/or use of iterative reconstruction technique. FINDINGS: HEMORRHAGE: No acute parenchymal, subarachnoid or extra-axial hemorrhage. BRAIN: Previously noted acute/subacute left [employer] territory infarct (that involves the left posterior temporal and left posterior occipito parietal watershed zone extending superiorly to near the vertex in the left parietal region) has undergone evolution with interval development of partially cystic encephalomalacia and few scattered dystrophic type calcifications along the overlying cortex. There also has been the interval development of ex vacuo dilatation left temporal horn, atrium/ occipital horn,, posterior body left lateral ventricle. Moderate diffuse/confluent chronic white matter ischemic changes seen extending peripherally into the deep and subcortical white matter both cerebral hemispheres. There is also some extension of these changes into the white matter tracts of both basal nuclei. Re- demonstrated is enlarged subarachnoid space involving the left aspect of the posterior fossa. Re- demonstrated are localized extra-axial calcifications left superior frontal region that could right represent incidental meningioma unchanged from prior study. Vascular calcifications both carotid and vertebral arteries. VENTRICLES: As mentioned above, there is ex vacuo dilatation of the left temporal horn left atrium and left occipital horn as well as posterior body left lateral ventricle. Moderate dilatation of the entire ventricular system not withstanding the aforementioned changes consistent with central volume loss. . . CALVARIUM: No acute calvarial fractures. PARANASAL SINUSES: There is partial opacification right maxillary antrum with marked sclerosis and left thickening of the right posterolateral maxillary sinus wall. There is also mild thickening and sclerosis of the medial wall right maxillary sinus as well. . Partial opacification several left-sided inferior mastoid air cells. MASTOID AIR CELLS: Unremarkable as visualized. No inflammatory changes. OTHER FINDINGS: Rightward conjugate gaze noted. Orbits and contents otherwise unremarkable. IMPRESSION: No acute intracranial hemorrhage. The evolution previously noted left [employer] territory infarct with residuals partially cystic encephalomalacia and ex vacuo dilatation of portions of the left lateral ventricle as detailed above. Chronic white matter ischemic changes. Moderate central volume loss. Re- demonstrated are localized extra-axial calcifications left superior frontal region that could right represent incidental meningioma unchanged from prior study.
[2017-12-30] MEDS ORDERED: Valproate 1,000 MG in Sodium Chloride 0.9% 100 ML IVPB ONE (16:15)
--- NOTE | 2017-12-30 20:09 | CP.PCM.HP ---
History of Present Illness - History of Present Illness History of Present Illness: CC: Seizure. 82 y/o F, Hx of CVA, Cerebral Aneurysm, Dementia, resident at [facility] about [facility] minutes as per NH information. While at the ER, Pt was actively seizing. Worsening symptoms: Pt lethargic, weaknesses, HR was 151, TMAx: 98.8, BP: 162/ 100. Aggravated factor: Unable to response. As per NH: No fever, chills, vomiting, diarrhea, CP, SOB, cough, sick contact. Head Ct showed: No acute intracranial hemorrhage, L DEDENTER territory infarct with residuals partially cystic encephalomalacia and ex valvo dilatation of portion of the L lateral ventricle, localized extra-axial calcifications L superior frontal region that could right represent meningioma unchanged from previous study. CXR: No cardiopulmonary disease. Present on Admission - Present on Admission Any Indicators Present on Admission: No Review of Systems - Review of Systems Systems not reviewed;Unavailable: Acuity of Condition, Dementia Past Patient History - Past Medical History & Family History Past Medical History?: Yes Pertinent Family History: Unknown - Past Social History Smoking Status: Never Smoked Alcohol: None Drugs: Denies Home Situation {Lives}: Assisted - CARDIAC Hx Cardiac Disorders: Yes Hx Hypertension: Yes - PULMONARY Hx Respiratory Disorders: Yes Hx Bronchitis: Yes - NEUROLOGICAL Hx Neurological Disorder: Yes Hx Alzheimer's Disease: Yes HX Cerebrovascular Accident: Yes Hx Dementia: Yes Hx Transient Ischemic Attacks (TIA): Yes - HEENT Hx HEENT Problems: Yes (Use eyeglasses) - RENAL Hx Chronic Kidney Disease: No - ENDOCRINE/METABOLIC Hx Endocrine Disorders: Yes Hx Diabetes Mellitus Type 2: Yes - HEMATOLOGICAL/ONCOLOGICAL Hx Blood Disorders: No Hx Human Immunodeficiency Virus (HIV): No - INTEGUMENTARY Hx Dermatological Problems: No - MUSCULOSKELETAL/RHEUMATOLOGICAL Hx Musculoskeletal Disorders: Yes Hx Arthritis: Yes - GASTROINTESTINAL Hx Gastrointestinal Disorders: Yes Hx Gall Bladder Disease: Yes - GENITOURINARY/GYNECOLOGICAL Hx Genitourinary Disorders: Yes Hx Incontinence: Yes - PSYCHIATRIC Hx Psychophysiologic Disorder: Yes Hx Anxiety: Yes - SURGICAL HISTORY Hx Surgeries: Yes Hx Cholecystectomy: Yes - ANESTHESIA Hx Anesthesia: Yes Hx Anesthesia Reactions: No Hx Malignant Hyperthermia: No Meds Allergies/Adverse Reactions: Allergies Allergy/AdvReac Type Severity Reaction Status Date / Time No Known Allergies Allergy Verified 12/30/17 13:46 Physical Exam - Constitutional Appears: Chronically Ill - Head Exam Head Exam: NORMAL INSPECTION - Eye Exam Eye Exam: PERRL - ENT Exam ENT Exam: Normal Exam - Neck Exam Neck exam: Positive for: Normal Inspection - Respiratory Exam Respiratory Exam: Decreased Breath Sounds (at bases) - Cardiovascular Exam Cardiovascular Exam: Tachycardia - GI/Abdominal Exam GI & Abdominal Exam: Normal Bowel Sounds, Soft Additional comments: Peg tube - Extremities Exam Extremities exam: Positive for: normal inspection - Back Exam Back exam: NORMAL INSPECTION - Neurological Exam Additional comments: Lethargic , minimal movement L hand to tactil stimulation - Psychiatric Exam Additional comments: Lethargic, generalized weakness. - Skin Skin Exam: Warm Results - Vital Signs Recent Vital Signs: Last Vital Signs Temp 98.1 F 12/30/17 19:32 Pulse 100 H 12/30/17 19:32 Resp 18 12/30/17 19:32 BP 162/83 H 12/30/17 19:32 Pulse Ox 95 12/30/17 19:32 reviewed Kaylyn - Labs Result Diagrams: 12/31/17 04:20 12/31/17 04:20 Labs: Laboratory Results - last 24 hr 12/30/17 12/30/17 12/30/17 13:56 14:07 14:07 WBC 12.1 H RBC 5.63 H Hgb 16.9 H D Hct 52.6 H MCV 93.3 D MCH 30.0 MCHC 32.2 L RDW 14.1 Plt Count 277 MPV 9.6 Neut % (Auto) 60.8 Lymph % (Auto) 29.6 Simpson % (Auto) 5.6 Eos % (Auto) 3.2 Baso % (Auto) 0.8 Neut # (Auto) 7.3 H Lymph # (Auto) 3.6 Simpson # (Auto) 0.7 Eos # (Auto) 0.4 Baso # (Auto) 0.1 Sodium 139 Potassium 4.8 Chloride 97 L Carbon Dioxide 20 L Anion Gap 27 H BUN 16 Creatinine 0.6 L Est GFR ( Amer) > 60 Est GFR (Non-Af Amer) > 60 POC Glucose (mg/dL) 265 H Random Glucose 288 H Calcium 11.2 H Magnesium 1.8 Total Bilirubin 1.0 AST 38 H ALT 17 Alkaline Phosphatase 119 Total Creatine Kinase 38 Total Protein 8.3 H Albumin 4.0 Globulin 4.3 H Albumin/Globulin Ratio 0.9 L Alcohol, Quantitative < 10 reviewed J.P. - Imaging and Cardiology Chest x-ray Status: Report reviewed by me (Kaylyn) CT scan - head Status: Report reviewed by me (Kaylyn) Assessment & Plan (1) Seizure Status: Acute Priority: High (2) Cerebral aneurysm Status: Chronic Priority: High (3) DMII (diabetes mellitus, type 2) Status: Chronic Priority: High (4) Hypertension Status: Chronic Priority: High (5) History of CVA (cerebrovascular accident) Status: Chronic Priority: High (6) Dementia Status: Chronic Priority: High - Assessment and Plan (Free Text) Plan: MRI Brain, EEG, Coreg, Zestril, Norvasc, Duoneb, Lipitor, Humalog, NTG patch, Tylenol and rest of Tx. PT and OT eval. Neuro consult. - Date & Time Date: 12/30/17 Time: 20:00
[2017-12-30] MEDS ORDERED: Magnesium Hydroxide Susp 30 ml UD PEG PRN (21:24)
[2017-12-30] MEDS ORDERED: Acetaminophen 650mg/20.3ml solution UD PEG PRN (21:24)
[2017-12-30] MEDS ORDERED: Albuterol-Ipratrop 3 mg / 0.5 (3 ml) UD INH SCH (22:00)
[2017-12-31] MEDS: Albuterol-Ipratrop 3 mg / 0.5 (3 ml) UD INH SCH ×4 (01:02→19:02)
[2017-12-31 05:45] LABS: MEAN CELL VOLUME 92.2 fl (81.0-99.0); MEAN CORPUSCULAR HEMOGLOBIN 30.1 pg (27.0-31.0); MEAN CORPUSCULAR HGB CONC 32.7 g/dL (33.0-37.0); RBC 4.64 Mil/uL (3.80-5.20); RED CELL DISTRIBUTION WIDTH 14.1 % (11.5-14.5); WHITE BLOOD COUNT 12.6 K/uL (4.8-10.8)
[2017-12-31 06:03] LABS: LDL CHOLESTEROL 47 mg/dL (0-129)
[2017-12-31 06:08] LABS: ALB/GLOB RATIO 0.9 (1.0-2.1); ALT/SGPT 22 U/L (9-52); AST/SGOT 24 U/L (14-36); BLOOD UREA NITROGEN 17 mg/dl (7-17); CALCIUM 10.2 mg/dL (8.4-10.2); GFR AFRICAN-AMERICAN > 60; GFR NON-AFRICAN AMERICAN > 60; HDL CHOLESTEROL 22 MG/DL (30-70)
[2017-12-31] MEDS: Insulin Lispro (humaLOG) 100 Units/ml Inj SC SCH ×3 (06:43→16:23)
--- NOTE | 2017-12-31 08:49 | CARD ---
APPROVED REPORT EKG Measurement Heart [id number] <Conclusion> Sinus tachycardia Possible Left atrial enlargement Left ventricular hypertrophy Cannot rule out Septal infarct, age undetermined Abnormal ECG
[2017-12-31] MEDS: DONEPEZIL HCL 5 MG PO SCH (09:23)
[2017-12-31] MEDS: Nitroglycerin 0.1 mg/hr Top Patch TD SCH (09:24)
[2017-12-31] MEDS: Pantoprazole 40 mg EC Tab PO SCH (09:24)
--- NOTE | 2017-12-31 11:16 | CP.PCM.CON ---
History of Present Illness - History of Present Illness History of Present Illness: 82 yr old woman with pmh of prior HAND CANDY CUTTER stroke, dementia, who had several generalized seizures yesterday, found to be in status epilepticus and was seen by myself, Dr. Rdoriguez and Dr. Red in the Er. She was given 2000 mg IV of Keppra, 1000 mg IV of depakote and 3 mg IV ativan. On exam yesterday afternoon, she was lethargic with brainstem reflexes. She is scheduled for MRI brain and eeg this morning, and has no more witnessed seizures overnight. Miss Jeong had a prior left HAND CANDY CUTTER stroke, and her new ct scan shows progression of this stroke from last visit. She has no history of epilepsy. Head Ct showed: No acute intracranial hemorrhage, L HAND CANDY CUTTER territory infarct with residuals partially cystic encephalomalacia and ex valvo dilatation of portion of the L lateral ventricle, localized extra-axial calcifications L superior frontal region that could right represent meningioma unchanged from previous study. CXR: No cardiopulmonary disease. PMH/PSH: as above FH/SH: Resident of [facility]. All: nkda. On exam: today no sedation. lethargic, obtunded, localizes with left arm to sternal rub. PERRL. +dolls eyes , +corneals, +gag, no facial asymmetry. Has right sided plegia, left leg appears to be weak as well. +1 dtr ul and ll bl. Toes downgoing. No clonus. Past Patient History - Past Medical History & Family History Past Medical History?: Yes - Past Social History Smoking Status: Never Smoked Alcohol: None Drugs: Denies Home Situation {Lives}: Senior Care - CARDIAC Hx Cardiac Disorders: Yes Hx Hypertension: Yes - PULMONARY Hx Respiratory Disorders: Yes Hx Bronchitis: Yes - NEUROLOGICAL Hx Neurological Disorder: Yes Hx Alzheimer's Disease: Yes HX Cerebrovascular Accident: Yes Hx Dementia: Yes Hx Transient Ischemic Attacks (TIA): Yes - HEENT Hx HEENT Problems: Yes (Use eyeglasses) - RENAL Hx Chronic Kidney Disease: No - ENDOCRINE/METABOLIC Hx Endocrine Disorders: Yes Hx Diabetes Mellitus Type 2: Yes - HEMATOLOGICAL/ONCOLOGICAL Hx Blood Disorders: No Hx Human Immunodeficiency Virus (HIV): No - INTEGUMENTARY Hx Dermatological Problems: No - MUSCULOSKELETAL/RHEUMATOLOGICAL Hx Musculoskeletal Disorders: Yes Hx Arthritis: Yes - GASTROINTESTINAL Hx Gastrointestinal Disorders: Yes Hx Gall Bladder Disease: Yes - GENITOURINARY/GYNECOLOGICAL Hx Genitourinary Disorders: Yes Hx Incontinence: Yes - PSYCHIATRIC Hx Psychophysiologic Disorder: Yes Hx Anxiety: Yes - SURGICAL HISTORY Hx Surgeries: Yes Hx Cholecystectomy: Yes - ANESTHESIA Hx Anesthesia: Yes Hx Anesthesia Reactions: No Hx Malignant Hyperthermia: No Meds Allergies/Adverse Reactions: Allergies Allergy/AdvReac Type Severity Reaction Status Date / Time No Known Allergies Allergy Verified 12/30/17 13:46 - Medications Medications: Current Medications Acetaminophen (Tylenol 650mg/20.3ml Solution Ud) 640 mg PEG Q4 PRN PRN Reason: Temp >101 Albuterol/Ipratropium (Duoneb 3 Mg/0.5 Mg (3 Ml) Ud) 3 ml INH RQ6 [facility] Last Admin: 12/31/17 07:53 Dose: 3 ml Amlodipine Besylate (Norvasc) 2.5 mg PEG DAILY [facility] Last Admin: 12/31/17 09:23 Dose: 2.5 mg Atorvastatin Calcium (Lipitor) 40 mg PEG DAILY [facility] Last Admin: 12/31/17 09:24 Dose: 40 mg Bisacodyl (Dulcolax) 10 mg [place] DAILY PRN PRN Reason: Constipation Carvedilol (Coreg) 6.25 mg PEG Q12 [facility] Last Admin: 12/31/17 09:24 Dose: 6.25 mg Donepezil HCl (Aricept Odt) 5 mg PO DAILY [facility] Last Admin: 12/31/17 09:23 Dose: 5 mg Sodium Chloride (Sodium Chloride 0.45%) 500 mls @ 75 mls/hr IV .Q6H40M [facility] Stop: 12/31/17 16:12 Last Admin: 12/31/17 05:58 Dose: 75 mls/hr Insulin Human Lispro (Humalog) 4 units SC ACTID [facility] Last Admin: 12/31/17 06:43 Dose: Not Given Lisinopril (Zestril) 20 mg PEG BID [facility] Last Admin: 12/31/17 09:24 Dose: 20 mg Lorazepam (Ativan) 1 mg IVP Q2 PRN PRN Reason: Seizure activity Magnesium Hydroxide (Milk Of Magnesia) 30 ml PEG HS PRN PRN Reason: Constipation Nitroglycerin (Nitro-Dur 0.1 Mg/Hr Patch) 1 patch TD DAILY [facility] Last Admin: 12/31/17 09:24 Dose: 1 patch Pantoprazole Sodium (Protonix Ec Tab) 40 mg PO DAILY [facility] Last Admin: 12/31/17 09:24 Dose: 40 mg Results - Vital Signs Recent Vital Signs: Last Vital Signs Temp 98.7 F 12/31/17 08:00 Pulse 100 H 12/31/17 09:24 Resp 20 12/31/17 08:00 BP 188/71 H 12/31/17 09:24 Pulse Ox 95 12/31/17 08:00 - Labs Result Diagrams: 12/31/17 04:20 12/31/17 04:20 Labs: Laboratory Results - last 24 hr 12/30/17 12/30/17 12/30/17 13:56 14:07 14:07 WBC 12.1 H RBC 5.63 H Hgb 16.9 H D Hct 52.6 H MCV 93.3 D MCH 30.0 MCHC 32.2 L RDW 14.1 Plt Count 277 MPV 9.6 Neut % (Auto) 60.8 Lymph % (Auto) 29.6 [place] % (Auto) 5.6 Eos % (Auto) 3.2 Baso % (Auto) 0.8 Neut # (Auto) 7.3 H Lymph # (Auto) 3.6 [place] # (Auto) 0.7 Eos # (Auto) 0.4 Baso # (Auto) 0.1 Sodium 139 Potassium 4.8 Chloride 97 L Carbon Dioxide 20 L Anion Gap 27 H BUN 16 Creatinine 0.6 L Est GFR ( Amer) > 60 Est GFR (Non-Af Amer) > 60 POC Glucose (mg/dL) 265 H Random Glucose 288 H Calcium 11.2 H Magnesium 1.8 Total Bilirubin 1.0 AST 38 H ALT 17 Alkaline Phosphatase 119 Total Creatine Kinase 38 Total Protein 8.3 H Albumin 4.0 Globulin 4.3 H Albumin/Globulin Ratio 0.9 L Triglycerides Cholesterol LDL Cholesterol Direct HDL Cholesterol Thyroxine (T4) TSH 3rd Generation Alcohol, Quantitative < 10 12/30/17 12/31/17 12/31/17 21:35 04:20 04:20 WBC 12.6 H RBC 4.64 Hgb 14.0 D Hct 42.8 MCV 92.2 MCH 30.1 MCHC 32.7 L RDW 14.1 Plt Count 212 MPV Neut % (Auto) Lymph % (Auto) [place] % (Auto) Eos % (Auto) Baso % (Auto) Neut # (Auto) Lymph # (Auto) [place] # (Auto) Eos # (Auto) Baso # (Auto) Sodium 137 Potassium 3.5 L Chloride 99 Carbon Dioxide 28 Anion Gap 14 BUN 17 Creatinine 0.5 L Est GFR ( Amer) > 60 Est GFR (Non-Af Amer) > 60 POC Glucose (mg/dL) 221 H Random Glucose 200 H Calcium 10.2 Magnesium Total Bilirubin 1.0 AST 24 ALT 22 Alkaline Phosphatase 74 Total Creatine Kinase Total Protein 6.4 Albumin 3.0 L D Globulin 3.4 Albumin/Globulin Ratio 0.9 L Triglycerides 95 D Cholesterol 88 LDL Cholesterol Direct 47 HDL Cholesterol 22 L Thyroxine (T4) 10.0 TSH 3rd Generation 2.37 Alcohol, Quantitative 12/31/17 06:14 WBC RBC Hgb Hct MCV MCH MCHC RDW Plt Count MPV Neut % (Auto) Lymph % (Auto) [place] % (Auto) Eos % (Auto) Baso % (Auto) Neut # (Auto) Lymph # (Auto) [place] # (Auto) Eos # (Auto) Baso # (Auto) Sodium Potassium Chloride Carbon Dioxide Anion Gap BUN Creatinine Est GFR ( Amer) Est GFR (Non-Af Amer) POC Glucose (mg/dL) 200 H Random Glucose Calcium Magnesium Total Bilirubin AST ALT Alkaline Phosphatase Total Creatine Kinase Total Protein Albumin Globulin Albumin/Globulin Ratio Triglycerides Cholesterol LDL Cholesterol Direct HDL Cholesterol Thyroxine (T4) TSH 3rd Generation Alcohol, Quantitative Assessment & Plan - Assessment and Plan (Free Text) Assessment: 82 yr old woman who was in status epilepticus, and is now stable, without clinical seizures, 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 Plan: 1. EEG. 2. Continue on Keppra 750 mg bid. Based on eeg we may increase the dosage. 3. MRI Brain without contrast. If positive for new stroke, will continue with stroke workup. 4. DVT prophylaxis with venodynes. 5. strict dm control. Our team will follow Thank you Dr. urbano
--- NOTE | 2017-12-31 14:59 | CP.PCM.PN ---
Subjective - Date & Time of Evaluation Date of Evaluation: 12/31/17 Time of Evaluation: 12:00 - Subjective Subjective: F/U Seizure Objective - Vital Signs/Intake and Output Vital Signs (last 24 hours): Temp Pulse Resp BP Pulse Ox 99.9 F H 92 H 20 122/70 92 L 12/31/17 13:00 12/31/17 13:00 12/31/17 13:00 12/31/17 13:00 12/31/17 13:00 Intake and Output: 12/31/17 12/31/17 06:59 18:59 Intake Total 900 Balance 900 - Medications Medications: Current Medications Acetaminophen (Tylenol 650mg/20.3ml Solution Ud) 640 mg PEG Q4 PRN PRN Reason: Temp >101 Albuterol/Ipratropium (Duoneb 3 Mg/0.5 Mg (3 Ml) Ud) 3 ml INH RQ6 [facility] Last Admin: 12/31/17 13:48 Dose: 3 ml Amlodipine Besylate (Norvasc) 2.5 mg PEG DAILY [facility] Last Admin: 12/31/17 09:23 Dose: 2.5 mg Atorvastatin Calcium (Lipitor) 40 mg PEG DAILY [facility] Last Admin: 12/31/17 09:24 Dose: 40 mg Bisacodyl (Dulcolax) 10 mg [place] DAILY PRN PRN Reason: Constipation Carvedilol (Coreg) 6.25 mg PEG Q12 [facility] Last Admin: 12/31/17 09:24 Dose: 6.25 mg Donepezil HCl (Aricept Odt) 5 mg PO DAILY [facility] Last Admin: 12/31/17 09:23 Dose: 5 mg Sodium Chloride (Sodium Chloride 0.45%) 500 mls @ 75 mls/hr IV .Q6H40M [facility] Stop: 12/31/17 16:12 Last Admin: 12/31/17 13:01 Dose: 75 mls/hr Levetiracetam 750 mg/ Sodium (Chloride) 107.5 mls @ 215 mls/hr IVPB Q12 [facility] Last Admin: 12/31/17 13:00 Dose: 215 mls/hr Insulin Human Lispro (Humalog) 4 units SC ACTID [facility] Last Admin: 12/31/17 13:01 Dose: 4 u Lisinopril (Zestril) 20 mg PEG BID [facility] Last Admin: 12/31/17 09:24 Dose: 20 mg Lorazepam (Ativan) 1 mg IVP Q2 PRN PRN Reason: Seizure activity Magnesium Hydroxide (Milk Of Magnesia) 30 ml PEG HS PRN PRN Reason: Constipation Nitroglycerin (Nitro-Dur 0.1 Mg/Hr Patch) 1 patch TD DAILY [facility] Last Admin: 12/31/17 09:24 Dose: 1 patch Pantoprazole Sodium (Protonix Ec Tab) 40 mg PO DAILY [facility] Last Admin: 12/31/17 09:24 Dose: 40 mg - Labs Labs: 12/31/17 04:20 12/31/17 04:20 - Constitutional Appears: Chronically Ill - Head Exam Head Exam: NORMAL INSPECTION - Eye Exam Eye Exam: PERRL - ENT Exam ENT Exam: Normal Exam - Neck Exam Neck Exam: Normal Inspection - Respiratory Exam Respiratory Exam: Decreased Breath Sounds (at bases) - Cardiovascular Exam Cardiovascular Exam: Tachycardia - GI/Abdominal Exam GI & Abdominal Exam: Soft, Normal Bowel Sounds Additional comments: Peg tube - Extremities Exam Extremities Exam: Normal Inspection - Neurological Exam Additional comments: Lethargic, R hemiplegia, not following commands. Moves LUE to tactile stimulation, generalized weakness. - Skin Skin Exam: Warm Assessment and Plan (1) Seizure Status: Acute (2) Cerebral aneurysm Status: Chronic (3) DMII (diabetes mellitus, type 2) Status: Chronic (4) Hypertension Status: Chronic (5) History of CVA (cerebrovascular accident) Status: Chronic (6) Dementia Status: Chronic
[2017-12-31] MEDS ORDERED: Chlorhexidine Gluconate 1 APPL/PKT TP ONE (16:26)
[2018-01-01] MEDS: Albuterol-Ipratrop 3 mg / 0.5 (3 ml) UD INH SCH ×4 (00:59→19:05)
[2018-01-01] MEDS: Insulin Lispro (humaLOG) 100 Units/ml Inj SC SCH ×3 (09:13→16:28)
[2018-01-01] MEDS: DONEPEZIL HCL 5 MG PO SCH (09:15)
[2018-01-01] MEDS: Pantoprazole 40 mg EC Tab PO SCH (09:17)
--- NOTE | 2018-01-01 10:25 | CP.PCM.PN ---
Subjective - Date & Time of Evaluation Date of Evaluation: 01/01/18 Time of Evaluation: 10:22 - Subjective Subjective: Ms. Jeong was seen and examined at the bedside. She is obtunded, withdraws to pain stimuli, pupils has + dolls eyes, + corneal reflex, GCS-4. She is not in any kind of respiratory distress,tolerating peg feeding. There was no untoward events overnight. Objective - Vital Signs/Intake and Output Vital Signs (last 24 hours): Temp Pulse Resp BP Pulse Ox 98.7 F 82 18 102/54 L 94 L 01/01/18 08:09 01/01/18 08:36 01/01/18 08:09 01/01/18 08:09 01/01/18 08:09 - Medications Medications: Current Medications Acetaminophen (Tylenol 650mg/20.3ml Solution Ud) 640 mg PEG Q4 PRN PRN Reason: Temp >101 Albuterol/Ipratropium (Duoneb 3 Mg/0.5 Mg (3 Ml) Ud) 3 ml INH RQ6 [facility] Last Admin: 01/01/18 08:13 Dose: 3 ml Amlodipine Besylate (Norvasc) 2.5 mg PEG DAILY [facility] Last Admin: 12/31/17 09:23 Dose: 2.5 mg Atorvastatin Calcium (Lipitor) 40 mg PEG DAILY [facility] Last Admin: 01/01/18 09:17 Dose: 40 mg Bisacodyl (Dulcolax) 10 mg [place] DAILY PRN PRN Reason: Constipation Carvedilol (Coreg) 6.25 mg PEG Q12 [facility] Last Admin: 12/31/17 22:08 Dose: 6.25 mg Donepezil HCl (Aricept Odt) 5 mg PO DAILY [facility] Last Admin: 01/01/18 09:15 Dose: 5 mg Levetiracetam 750 mg/ Sodium (Chloride) 107.5 mls @ 215 mls/hr IVPB Q12 [facility] Last Admin: 01/01/18 09:08 Dose: 215 mls/hr Insulin Human Lispro (Humalog) 4 units SC ACTID [facility] Last Admin: 01/01/18 09:13 Dose: 4 u Lisinopril (Zestril) 20 mg PEG BID [facility] Last Admin: 12/31/17 16:22 Dose: 20 mg Lorazepam (Ativan) 1 mg IVP Q2 PRN PRN Reason: Seizure activity Last Admin: 12/31/17 17:59 Dose: 1 mg Magnesium Hydroxide (Milk Of Magnesia) 30 ml PEG HS PRN PRN Reason: Constipation Nitroglycerin (Nitro-Dur 0.1 Mg/Hr Patch) 1 patch TD DAILY [facility] Last Admin: 12/31/17 09:24 Dose: 1 patch Pantoprazole Sodium (Protonix Ec Tab) 40 mg PO DAILY [facility] Last Admin: 01/01/18 09:17 Dose: 40 mg - Labs Labs: 12/31/17 04:20 12/31/17 04:20 - Constitutional Appears: No Acute Distress - Head Exam Head Exam: NORMAL INSPECTION - Neurological Exam Neuro motor strength exam: Left Upper Extremity: 0, Right Upper Extremity: 0, Left Lower Extremity: 0, Right Lower Extremity: 0 Additional comments: GCS- 4 Assessment and Plan (1) Seizure Assessment & Plan: Case discussed with Dr. Borges, continue all current medical regimen. Pending EEG and MRI of the brain without contrast. Recommend aspirin 81 mg via peg ( hx of CVA and recent CT scan did not show any hemorrhage), keep head of the bed elevated at least 40 degrees, neuro check , hydration. Status: Acute
[2018-01-01] MEDS: Nitroglycerin 0.1 mg/hr Top Patch TD SCH (11:55)
--- NOTE | 2018-01-01 15:44 | CP.PCM.PN ---
Subjective - Date & Time of Evaluation Date of Evaluation: 01/01/18 Time of Evaluation: 10:20 - Subjective Subjective: F/U seizure. no response to verbal stimuli , minimal response to tactil stimuli with LUE Objective - Vital Signs/Intake and Output Vital Signs (last 24 hours): Temp Pulse Resp BP Pulse Ox 99 F 81 18 147/79 98 01/01/18 12:25 01/01/18 12:25 01/01/18 12:25 01/01/18 12:25 01/01/18 12:25 - Medications Medications: Current Medications Acetaminophen (Tylenol 650mg/20.3ml Solution Ud) 640 mg PEG Q4 PRN PRN Reason: Temp >101 Albuterol/Ipratropium (Duoneb 3 Mg/0.5 Mg (3 Ml) Ud) 3 ml INH RQ6 [facility] Last Admin: 01/01/18 13:00 Dose: 3 ml Amlodipine Besylate (Norvasc) 2.5 mg PEG DAILY [facility] Last Admin: 12/31/17 09:23 Dose: 2.5 mg Aspirin (Aspirin Chewable) 81 mg PEG DAILY [facility] Last Admin: 01/01/18 11:52 Dose: 81 mg Atorvastatin Calcium (Lipitor) 40 mg PEG DAILY [facility] Last Admin: 01/01/18 09:17 Dose: 40 mg Bisacodyl (Dulcolax) 10 mg [place] DAILY PRN PRN Reason: Constipation Carvedilol (Coreg) 6.25 mg PEG Q12 [facility] Last Admin: 01/01/18 11:51 Dose: 6.25 mg Donepezil HCl (Aricept Odt) 5 mg PO DAILY [facility] Last Admin: 01/01/18 09:15 Dose: 5 mg Levetiracetam 750 mg/ Sodium (Chloride) 107.5 mls @ 215 mls/hr IVPB Q12 [facility] Last Admin: 01/01/18 09:08 Dose: 215 mls/hr Insulin Human Lispro (Humalog) 4 units SC ACTID [facility] Last Admin: 01/01/18 11:45 Dose: 4 u Lisinopril (Zestril) 20 mg PEG BID [facility] Last Admin: 01/01/18 11:52 Dose: 20 mg Lorazepam (Ativan) 1 mg IVP Q2 PRN PRN Reason: Seizure activity Last Admin: 06/19/18 17:59 Dose: 1 mg Magnesium Hydroxide (Milk Of Magnesia) 30 ml PEG HS PRN PRN Reason: Constipation Nitroglycerin (Nitro-Dur 0.1 Mg/Hr Patch) 1 patch TD DAILY [facility] Last Admin: 01/01/18 11:55 Dose: 1 patch Pantoprazole Sodium (Protonix Ec Tab) 40 mg PO DAILY [facility] Last Admin: 01/01/18 09:17 Dose: 40 mg - Labs Labs: 12/31/17 04:20 12/31/17 04:20 - Constitutional Appears: Chronically Ill - Head Exam Head Exam: NORMAL INSPECTION - Eye Exam Eye Exam: PERRL - ENT Exam ENT Exam: Normal Exam - Neck Exam Neck Exam: Normal Inspection - Respiratory Exam Respiratory Exam: Decreased Breath Sounds (at bases) - Cardiovascular Exam Cardiovascular Exam: REGULAR RHYTHM - GI/Abdominal Exam GI & Abdominal Exam: Soft, Normal Bowel Sounds Additional comments: Peg tube - Extremities Exam Extremities Exam: Normal Inspection - Neurological Exam Additional comments: no response to tactil stimuli ,minimal response to tactil stimuli with LUE - Skin Skin Exam: Warm Assessment and Plan (1) Seizure Status: Acute (2) Cerebral aneurysm Status: Chronic (3) DMII (diabetes mellitus, type 2) Status: Chronic (4) Hypertension Status: Chronic (5) History of CVA (cerebrovascular accident) Status: Chronic (6) Dementia Status: Chronic - Assessment and Plan (Free Text) Plan: continue Keppra , DuoNeb , Plavix , Norvasc , Zestril , Neuro f/u appreciated
--- NOTE | 2018-01-01 19:51 | MRI ---
PROCEDURE: MRI BRAIN WITHOUT CONTRAST HISTORY: status epilepticus COMPARISON: None. TECHNIQUE: Multiplanar, multisequence MR images of the brain were obtained without intravenous contrast enhancement. FINDINGS: HEMORRHAGE: None DWI: Acute or subacute infarcts are identified by restricted diffusion at the medial left occipital lobe and possibly minimally the inferior posterior left temporal lobe as well. 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 Microangiopathy is included in the reema and minimally affects the cerebellum. No suspicious extra-axial fluid collection identified. VENTRICLES: Unremarkable. No hydrocephalus. CRANIUM: Unremarkable. ORBITS: Grossly unremarkable. PARANASAL SINUSES/MASTOIDS: Right maxillary sinusitis noted as well as extensive left mastoid effusions peer VASCULAR SYSTEM: Skull base flow voids intact. OTHER FINDINGS: None. IMPRESSION: Acute or subacute infarction at residual parenchyma at the left [employer] SALES [employer] distribution with a large chronic infarct identified medially lateral to it. Age-related neuro degenerative changes are identified. No significant mass effect at this time.
[2018-01-02] MEDS: Albuterol-Ipratrop 3 mg / 0.5 (3 ml) UD INH SCH ×4 (01:16→19:41)
[2018-01-02] MEDS: Insulin Lispro (humaLOG) 100 Units/ml Inj SC SCH ×4 (06:59→17:09)
[2018-01-02] MEDS: Pantoprazole 40 mg EC Tab PO SCH (09:00)
[2018-01-02] MEDS: DONEPEZIL HCL 5 MG PO SCH (09:00)
[2018-01-02] MEDS: Nitroglycerin 0.1 mg/hr Top Patch TD SCH (10:44)
--- NOTE | 2018-01-02 11:21 | PCM.STROKE ---
Interval History Critical Care Time Spent (in minutes): 20 Stroke Date: 01/01/18 - Treatment DVT Prophylaxis: Sequential compression device in place bilaterally Antiplatelet: Acetylsalicylic acid (ASA) (81 mg via peg daily), Plavix (75 mg via peg daily) Statin: Atrovastatin (40 mg via peg HS) - Education Written Stroke Education provided regarding: personal risk factors, stroke warning sign/symptoms, how to activate emergency medical services, need to follow up after discharge (unable to do some teaching due to current mental status) NIHSS Stroke Scale - Date/Time Evaluation Performed Date Performed: 01/02/18 When Was NIHSS Performed: Re-evaluation - How Severe is the Stroke Level of Consciousness: 2=Obtunded LOC to Questions: 2=Neither correct LOC to commands: 2=Neither correct Best Gaze: 2=Forced deviation Visual: 0=No visual loss (unable to assess due to patient's current mental state ) Facial: 0=Normal Motor Arm - Left: 4=No movement Motor Arm - Right: 4=No movement Motor Leg - Left: 4=No movement Motor Leg - Right: 4=No movement Limb Ataxia: 0=Absent Sensory: 2=Severe to total loss Best Language: 3=Mute Dysarthia: 2=Severe, near unintelligible or worse Extinction & Inattention (Neglect): 2=Profound neglect(does not recognize own hand or orients to one side) Score: 33 Exam - Vital Sign Vital Signs: Temp Pulse Resp BP Pulse Ox 98.3 F 85 20 149/73 97 01/02/18 08:00 01/02/18 10:44 01/02/18 08:00 01/02/18 10:44 01/02/18 08:00 Right Pupil Size (in mm): 2 (sluggish) Left Pupil Size (in mm): 2 (sluggish) Cardiovascular: Regular rate & rhythm Mental Status: Normal: Other (non verbal) Cranial Nerve: Abnormal: Visual Estevez, Extraocular movement intact, Facial Sensation, Facial Strength, Hearing, Palate/Tongue Movement, Shoulder Strength Neuro motor strength exam: Left Upper Extremity: 0, Right Upper Extremity: 0 ( focal seizure noted), Left Lower Extremity: 0, Right Lower Extremity: 0 Vascular Risk: Body Mass Index - Data reviewed Laboratory results: 12/31/17 04:20 12/31/17 04:20 Triglycerides 95 mg/DL (0-149) D 12/31/17 04:20 Cholesterol 88 mg/dL (0-199) 12/31/17 04:20 LDL Cholesterol Direct 47 mg/dL (0-129) 12/31/17 04:20 HDL Cholesterol 22 MG/DL (30-70) L 12/31/17 04:20 Assessment and Plan (1) Seizure Assessment & Plan: Case discussed with Dr. Borges, continue allcurrent medical regimen, since the patient is receiving her morning dose of keppra, additional 250 mg IVPB for one dose for a total of 1000 mg, then increase dose from 750 mg IVPB to 1000 mg IVPB q 12. Status: Acute (2) CVA (cerebral vascular accident) Assessment & Plan: Case discussed with Dr. Borges, continue all current medical regimen, recommend plavix 75 mg via peg daily, keep head of bed elevated at least 30 degrees, treat any electrolyte abnormalities and any underlying infection. Status: Acute
[2018-01-02 11:36] LABS: HEMOGLOBIN 13.8 g/dL (12.0-16.0); MEAN CELL VOLUME 91.5 fl (81.0-99.0); MEAN CORPUSCULAR HEMOGLOBIN 30.4 pg (27.0-31.0); MEAN CORPUSCULAR HGB CONC 33.2 g/dL (33.0-37.0); RBC 4.52 Mil/uL (3.80-5.20); WHITE BLOOD COUNT 7.3 K/uL (4.8-10.8)
[2018-01-02 11:50] LABS: BLOOD UREA NITROGEN 16 mg/dl (7-17); CALCIUM 9.5 mg/dL (8.4-10.2); GFR AFRICAN-AMERICAN > 60; GFR NON-AFRICAN AMERICAN > 60
--- NOTE | 2018-01-02 13:55 | CP.PCM.PN ---
Subjective - Subjective Subjective: Patient is having sezures during examination Objective - Vital Signs/Intake and Output Vital Signs (last 24 hours): Temp Pulse Resp BP Pulse Ox 98.7 F 80 20 117/87 97 01/02/18 12:00 01/02/18 12:00 01/02/18 12:00 01/02/18 12:00 01/02/18 12:00 - Medications Medications: Current Medications Acetaminophen (Tylenol 650mg/20.3ml Solution Ud) 640 mg PEG Q4 PRN PRN Reason: Temp >101 Albuterol/Ipratropium (Duoneb 3 Mg/0.5 Mg (3 Ml) Ud) 3 ml INH RQ6 [facility] Last Admin: 01/02/18 13:37 Dose: 3 ml Amlodipine Besylate (Norvasc) 2.5 mg PEG DAILY [facility] Last Admin: 01/02/18 08:58 Dose: 2.5 mg Aspirin (Aspirin Chewable) 81 mg PEG DAILY [facility] Last Admin: 01/02/18 08:59 Dose: 81 mg Atorvastatin Calcium (Lipitor) 40 mg PEG DAILY [facility] Last Admin: 01/02/18 09:00 Dose: 40 mg Bisacodyl (Dulcolax) 10 mg HI DAILY PRN PRN Reason: Constipation Carvedilol (Coreg) 6.25 mg PEG Q12 [facility] Last Admin: 01/02/18 08:59 Dose: 6.25 mg Clopidogrel Bisulfate (Plavix) 75 mg PEG DAILY [facility] Last Admin: 01/02/18 12:52 Dose: 75 mg Donepezil HCl (Aricept Odt) 5 mg PO DAILY [facility] Last Admin: 01/02/18 09:00 Dose: 5 mg Levetiracetam 1,000 mg/ Sodium (Chloride) 110 mls @ 210 mls/hr IVPB Q12 [facility] Insulin Human Lispro (Humalog) 4 units SC ACTID [facility] Last Admin: 01/02/18 12:47 Dose: 4 units Lisinopril (Zestril) 20 mg PEG BID [facility] Last Admin: 01/02/18 08:59 Dose: 20 mg Lorazepam (Ativan) 1 mg IVP Q2 PRN PRN Reason: Seizure activity Last Admin: 01/02/18 00:26 Dose: 1 mg Magnesium Hydroxide (Milk Of Magnesia) 30 ml PEG HS PRN PRN Reason: Constipation Nitroglycerin (Nitro-Dur 0.1 Mg/Hr Patch) 1 patch TD DAILY [facility] Last Admin: 01/02/18 10:44 Dose: 1 patch Pantoprazole Sodium (Protonix Ec Tab) 40 mg PO DAILY [facility] Last Admin: 01/02/18 09:00 Dose: 40 mg - Labs Labs: 01/02/18 10:55 01/02/18 10:55 - Constitutional Appears: Chronically Ill - Head Exam Head Exam: NORMAL INSPECTION - Eye Exam Additional comments: sluggish reaction to light - ENT Exam ENT Exam: Normal Exam - Neck Exam Neck Exam: Normal Inspection - Respiratory Exam Respiratory Exam: Decreased Breath Sounds (at bases) - Cardiovascular Exam Cardiovascular Exam: REGULAR RHYTHM - GI/Abdominal Exam GI & Abdominal Exam: Soft, Normal Bowel Sounds Additional comments: PEG tube - Extremities Exam Extremities Exam: Normal Inspection - Neurological Exam Additional comments: Patient is having Left sided lateralized seizures during examination - Skin Skin Exam: Warm Assessment and Plan (1) Seizure Status: Acute (2) Acute CVA (cerebrovascular accident) Assessment & Plan: MRI Brain left Acute CVA L [employer]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
[2018-01-02] MEDS: levETIRAcetam 1,000 MG in Sodium Chloride 0.9% 100 ML IVPB SCH (21:06)
[2018-01-03] MEDS: Albuterol-Ipratrop 3 mg / 0.5 (3 ml) UD INH SCH ×4 (01:41→19:36)
[2018-01-03] MEDS: Insulin Lispro (humaLOG) 100 Units/ml Inj SC SCH ×3 (06:40→18:09)
--- NOTE | 2018-01-03 07:32 | CARD ---
APPROVED REPORT EXAM: Two-dimensional and M-mode echocardiogram with Doppler and color Doppler. Other Information Quality : FairRhythm : NSR INDICATION CVA/TIA TDS,PT NOT ABLE TO MOVE 2D DIMENSIONS IVSd0.95 (0.7-1.1cm)LVDd4.21 (3.9-5.9cm) PWd1.03 (0.7-1.1cm)IVSs0.80 (0.8-1.2cm) LVDs3.91 (2.5-4.0cm)FS (%) 7.0 % PWs1.59 (0.8-1.2cm) M-Mode DIMENSIONS Left Atrium (MM)6.94 (2.5-4.0cm)Aortic Root2.84 (2.2-3.7cm) Mitral Valve MV E Cvowjpxn13.7cm/sMV DECEL [id number] A Ryfzghje811.4cm/s MV EUC47szC/A ratio0.6MVA (PHT)3.03cm2 TDI Lateral E' Peak V3.75cm/sMedial E' Peak V4.40cm/sE/Lateral E'21.0 E/Medial E'17.9 Tricuspid Valve TR Peak Dzeavlnt339fn/sRAP MWLIXMBS33xvAhMS Peak Gr.41mmHg [id number] LEFT VENTRICLE The left ventricle is normal size. There is normal left ventricular wall thickness. Left ventricle systolic function is normal. The Ejection Fraction is 65-70%. There is normal LV segmental wall motion. Transmitral Doppler flow pattern is Grade I-abnormal relaxation pattern. RIGHT VENTRICLE The right ventricle is normal size. There is normal right ventricular wall thickness. The right ventricular systolic function is normal. ATRIA The left atrium size is normal. The right atrium size is normal. AORTIC VALVE The aortic valve is mildly to moderately sclerotic. No aortic regurgitation is present. There is no aortic valvular stenosis. MITRAL VALVE Mitral annular calcification is moderate to severe. There is no evidence of mitral valve prolapse. There is no mitral valve stenosis. Mitral regurgitation is mild. TRICUSPID VALVE The tricuspid valve is normal in structure. There is mild to moderate tricuspid regurgitation. Right ventricular systolic pressure is estimated at 59 mmHg. There is moderate-severe pulmonary hypertension. PULMONIC VALVE The pulmonic valve is not well visualized. There is no pulmonic valvular regurgitation. GREAT VESSELS The aortic root is normal in size. The IVC is normal in size and collapses >50% with inspiration. PERICARDIAL EFFUSION The pericardium appears normal. <Conclusion> Due to a poor echo window, the quality of the images was suboptimal. The left ventricle is normal size. There is normal left ventricular wall thickness. There is normal LV segmental wall motion. Left ventricle systolic function is normal. The Ejection Fraction is 65-70%. Transmitral Doppler flow pattern is Grade I-abnormal relaxation pattern. There is mild to moderate tricuspid regurgitation. There is moderate-severe pulmonary hypertension.
[2018-01-03] MEDS: DONEPEZIL HCL 5 MG PO SCH (09:20)
[2018-01-03] MEDS: levETIRAcetam 1,000 MG in Sodium Chloride 0.9% 100 ML IVPB SCH (09:21)
[2018-01-03] MEDS: Nitroglycerin 0.1 mg/hr Top Patch TD SCH (09:22)
[2018-01-03] MEDS: Pantoprazole 40 mg EC Tab PO SCH (09:24)
--- NOTE | 2018-01-03 10:15 | CP.PCM.PN ---
Subjective - Date & Time of Evaluation Date of Evaluation: 01/03/18 Time of Evaluation: 10:15 - Subjective Subjective: Ms. Jeong was seen and examined at the bedside. She is obtunded, withdraws to pain stimuli, pupils has + dolls eyes, + corneal reflex, GCS-4. She is not in any kind of respiratory distress but noticeable gurgling suctioned by staff as needed.She did not have any focal seizures or seizures overnight. There was no untoward events overnight. Objective - Vital Signs/Intake and Output Vital Signs (last 24 hours): Temp Pulse Resp BP Pulse Ox 98.5 F 76 18 130/70 98 01/03/18 08:00 01/03/18 09:25 01/03/18 08:00 01/03/18 09:25 01/03/18 08:00 - Medications Medications: Current Medications Acetaminophen (Tylenol 650mg/20.3ml Solution Ud) 640 mg PEG Q4 PRN PRN Reason: Temp >101 Albuterol/Ipratropium (Duoneb 3 Mg/0.5 Mg (3 Ml) Ud) 3 ml INH RQ6 [facility] Last Admin: 01/03/18 07:38 Dose: 3 ml Amlodipine Besylate (Norvasc) 2.5 mg PEG DAILY [facility] Last Admin: 01/03/18 09:24 Dose: 2.5 mg Aspirin (Aspirin Chewable) 81 mg PEG DAILY [facility] Last Admin: 01/03/18 09:20 Dose: 81 mg Atorvastatin Calcium (Lipitor) 40 mg PEG DAILY [facility] Last Admin: 01/03/18 09:21 Dose: 40 mg Bisacodyl (Dulcolax) 10 mg MO DAILY PRN PRN Reason: Constipation Carvedilol (Coreg) 6.25 mg PEG Q12 [facility] Last Admin: 01/03/18 09:20 Dose: 6.25 mg Clopidogrel Bisulfate (Plavix) 75 mg PEG DAILY [facility] Last Admin: 01/03/18 09:24 Dose: 75 mg Donepezil HCl (Aricept Odt) 5 mg PO DAILY [facility] Last Admin: 01/03/18 09:20 Dose: 5 mg Levetiracetam 1,000 mg/ Sodium (Chloride) 110 mls @ 210 mls/hr IVPB Q12 [facility] Last Admin: 01/03/18 09:21 Dose: 210 mls/hr Insulin Human Lispro (Humalog) 4 units SC ACTID [facility] Last Admin: 01/03/18 06:40 Dose: 4 units Lisinopril (Zestril) 20 mg PEG BID [facility] Last Admin: 01/03/18 09:25 Dose: 20 mg Magnesium Hydroxide (Milk Of Magnesia) 30 ml PEG HS PRN PRN Reason: Constipation Nitroglycerin (Nitro-Dur 0.1 Mg/Hr Patch) 1 patch TD DAILY [facility] Last Admin: 01/03/18 09:22 Dose: 1 patch Pantoprazole Sodium (Protonix Ec Tab) 40 mg PO DAILY [facility] Last Admin: 01/03/18 09:24 Dose: 40 mg - Labs Labs: 01/02/18 10:55 01/02/18 10:55 - Constitutional Appears: No Acute Distress - Head Exam Head Exam: NORMAL INSPECTION - Eye Exam Pupil Exam: Miosis Additional comments: sluggish - Respiratory Exam Respiratory Exam: Decreased Breath Sounds - Neurological Exam Neuro motor strength exam: Left Upper Extremity: 0, Right Upper Extremity: 0, Left Lower Extremity: 0, Right Lower Extremity: 0 Additional comments: GCS-4 Assessment and Plan (1) Seizure Assessment & Plan: Case discussed with Dr. Borges, continue current dose of keppra, pending EEG results Status: Acute (2) CVA (cerebral vascular accident) Assessment & Plan: Case discussed with Dr. Borges, continue all current medical regimen. Recommend keep head of bed elevated at least 40 degrees, blood pressure and glycemic control. Status: Acute
--- NOTE | 2018-01-03 13:21 | RAD ---
PROCEDURE: CHEST RADIOGRAPH, 1 VIEW HISTORY: crackles COMPARISON: Chest radiograph dated 12/30/2017 FINDINGS: LUNGS: Clear. PLEURA: No pneumothorax or pleural fluid seen. CARDIOVASCULAR: Atherosclerotic aortic calcifications. Cardiomediastinal silhouette unchanged. Heavy mitral annular calcification. OSSEOUS STRUCTURES: Unchanged. VISUALIZED UPPER ABDOMEN: Right upper quadrant surgical clips. Gastrostomy tube seen in the left upper quadrant. OTHER FINDINGS: None. IMPRESSION: No active disease.
[2018-01-03 16:35] VITALS: RESP 20
--- NOTE | 2018-01-03 18:57 | CP.PCM.DIS ---
Provider - Provider Date of Admission: 12/30/17 16:16 Attending physician: Keith Red MD Diagnosis - Discharge Diagnosis (1) Seizure Status: Acute Priority: High (2) Acute CVA (cerebrovascular accident) Status: Acute (3) History of CVA (cerebrovascular accident) Status: Chronic Priority: High (4) Cerebral aneurysm Status: Chronic Priority: High (5) DMII (diabetes mellitus, type 2) Status: Chronic Priority: High (6) Hypertension Status: Chronic Priority: High (7) Dementia Status: Chronic Priority: High Hospital Course - Lab Results Lab Results: Most Recent Lab Values WBC 7.3 K/uL (4.8-10.8) 01/02/18 10:55 RBC 4.52 Mil/uL (3.80-5.20) 01/02/18 10:55 Hgb 13.8 g/dL (12.0-16.0) 01/02/18 10:55 Hct 41.4 % (34.0-47.0) 01/02/18 10:55 MCV 91.5 fl (81.0-99.0) 01/02/18 10:55 MCH 30.4 pg (27.0-31.0) 01/02/18 10:55 MCHC 33.2 g/dL (33.0-37.0) 01/02/18 10:55 RDW 14.0 % (11.5-14.5) 01/02/18 10:55 Plt Count 196 K/uL (130-400) 01/02/18 10:55 MPV 9.6 fl (7.2-11.7) 12/30/17 14:07 Neut % (Auto) 60.8 % (50.0-75.0) 12/30/17 14:07 Lymph % (Auto) 29.6 % (20.0-40.0) 12/30/17 14:07 Carbon % (Auto) 5.6 % (0.0-10.0) 12/30/17 14:07 Eos % (Auto) 3.2 % (0.0-4.0) 12/30/17 14:07 Baso % (Auto) 0.8 % (0.0-2.0) 12/30/17 14:07 Neut # (Auto) 7.3 K/uL (1.8-7.0) H 12/30/17 14:07 Lymph # (Auto) 3.6 K/uL (1.0-4.3) 12/30/17 14:07 Carbon # (Auto) 0.7 K/uL (0.0-0.8) 12/30/17 14:07 Eos # (Auto) 0.4 K/uL (0.0-0.7) 12/30/17 14:07 Baso # (Auto) 0.1 K/uL (0.0-0.2) 12/30/17 14:07 Sodium 137 mmol/l (132-148) 01/02/18 10:55 Potassium 3.7 MMOL/L (3.6-5.0) 01/02/18 10:55 Chloride 101 mmol/L (98-107) 01/02/18 10:55 Carbon Dioxide 32 mmol/L (22-30) H 01/02/18 10:55 Anion Gap 8 (10-20) L 01/02/18 10:55 BUN 16 mg/dl (7-17) 01/02/18 10:55 Creatinine 0.5 mg/dl (0.7-1.2) L 01/02/18 10:55 Est GFR ( Amer) > 60 01/02/18 10:55 Est GFR (Non-Af Amer) > 60 01/02/18 10:55 POC Glucose (mg/dL) 292 mg/dL (65-110) H 01/03/18 16:16 Random Glucose 284 mg/dL (65-105) H 01/02/18 10:55 Calcium 9.5 mg/dL (8.4-10.2) 01/02/18 10:55 Magnesium 1.8 MG/DL (1.6-2.3) 12/30/17 14:07 Total Bilirubin 1.0 mg/dl (0.2-1.3) 12/31/17 04:20 AST 24 U/L (14-36) 12/31/17 04:20 ALT 22 U/L (9-52) 12/31/17 04:20 Alkaline Phosphatase 74 U/L (38-126) 12/31/17 04:20 Total Creatine Kinase 38 U/L (30-135) 12/30/17 14:07 Total Protein 6.4 G/DL (6.3-8.2) 12/31/17 04:20 Albumin 3.0 g/dL (3.5-5.0) L D 12/31/17 04:20 Globulin 3.4 gm/dL (2.2-3.9) 12/31/17 04:20 Albumin/Globulin Ratio 0.9 (1.0-2.1) L 12/31/17 04:20 Triglycerides 95 mg/DL (0-149) D 12/31/17 04:20 Cholesterol 88 mg/dL (0-199) 12/31/17 04:20 LDL Cholesterol Direct 47 mg/dL (0-129) 12/31/17 04:20 HDL Cholesterol 22 MG/DL (30-70) L 12/31/17 04:20 Thyroxine (T4) 10.0 ug/dl (5.5-11.0) 12/31/17 04:20 TSH 3rd Generation 2.37 mIU/ML (0.46-4.68) 12/31/17 04:20 Alcohol, Quantitative < 10 mg/dl (0-10) 12/30/17 14:07 Discharge Exam - Head Exam Head Exam: NORMAL INSPECTION Discharge Plan - Discharge Medications Prescriptions: levETIRAcetam Solution [Keppra] 1,000 mg PO Q12 #60 bottle - Follow Up Plan Condition: FAIR Disposition: HOME/ ROUTINE
[2018-01-03 20:26] VITALS: BP 148/64; PULSE 86; TEMP 98.9; O2SAT 96
== END 2018-01-03 21:10 | DRG 100 ==
LOC: H.ER 13:45 → H.ERHOLD 16:16 → H.TEL 18:28
PROVIDERS: ADMIT Internal Medicine Pulmonary Disease; ATTEND Internal Medicine Pulmonary Disease
DX: G40.901 Epilepsy, unspecified, not intractable, with status epilepticus (principal); I63.8 Other cerebral infarction; Z93.1 Gastrostomy status; G30.9 Alzheimer's disease, unspecified; F02.80 Dementia in other diseases classified elsewhere, unspecified severity, without behavioral disturbance, psychotic disturbance, mood disturbance, and anxiety; F41.9 Anxiety disorder, unspecified; M19.90 Unspecified osteoarthritis, unspecified site; I10 Essential (primary) hypertension; I67.1 Cerebral aneurysm, nonruptured; E11.9 Type 2 diabetes mellitus without complications

== ENCOUNTER 2018-05-26 10:59 | Observation (INO) | payer MEDICARE, MEDICAID ==
[2018-05-26 11:00] VITALS: BMI 30.2
[2018-05-26] MEDS ORDERED: Iohexol 240 (50 ml) PO ONE (15:34)
[2018-05-26] MEDS ORDERED: Iohexol 240 (50 ml) ONE ×2 (15:36→16:01)
--- NOTE | 2018-05-26 15:43 | ED PDOC ---
HPI: General Adult Time Seen by Provider: 05/26/18 11:09 Chief Complaint (Nursing): GI Problem Chief Complaint (Provider): G-tube pulled out at long-term Additional Complaint(s): 83 yo female with history of dementia, HTN, DM and stroke sent by long-term for evaluation of G-tube which was pulled out at the long-term. Pt unable to respond to questions. Pt calm and cooperative in the ER Past Medical History Reviewed: Historical Data, Nursing Documentation, Vital Signs Vital Signs: Last Vital Signs Temp 97 F L 05/26/18 11:14 Pulse 72 05/26/18 11:14 Resp 20 05/26/18 11:14 BP 150/83 05/26/18 11:14 Pulse Ox 96 05/26/18 11:14 - Medical History PMH: Alzheimer's Disease, Anxiety, Arthritis, Bronchitis, CVA, Dementia, Gall Bladder Disease, HTN, Hypercholesterolemia, TIA Denies: HIV, Chronic Kidney Disease - Surgical History Surgical History: Cholecystectomy - Family History Family History: States: Unknown Family Hx - Living Arrangements Living Arrangements: Senior Living/Assist Lv[facility] - Social History Current smoker - smoking cessation education provided: No Alcohol: None Drugs: Denies - Home Medications Home Medications: Ambulatory Orders Medication Instructions Recorded Acetaminophen [Tylenol 160mg/5ml 640 mg PEG Q4 PRN 12/30/17 Oral Soln] Acetaminophen [Tylenol 160mg/5ml 640 mg PEG Q4 PRN 12/30/17 Oral Soln] Albuterol/Ipratropium [Duoneb 3 3 ml INH Q6 PRN 12/30/17 mg/0.5 mg (3 ml) UD] Atorvastatin [Lipitor] 40 mg PEG HS 12/30/17 Bisacodyl [Dulcolax] 10 mg SC DAILY PRN 12/30/17 Carvedilol [Coreg] 6.25 mg PEG Q12 12/30/17 Insulin Lispro [humALOG] 6 unit SC ACTID 12/30/17 Magnesium Hydroxide [Milk Of 30 ml PEG HS PRN 12/30/17 Magnesia] Clopidogrel [Plavix] 75 mg PEG DAILY tab 01/03/18 Aspirin [Aspirin Chewable] 81 mg PEG QPM 05/26/18 Famotidine [Pepcid] 20 mg PEG HS 05/26/18 Nitroglycerin 0.1 mg/hr [Nitro-Dur 1 patch TD DAILY 05/26/18 0.1 mg/hr Patch] amLODIPine [Norvasc] 5 mg PEG DAILY 05/26/18 levETIRAcetam Solution [Keppra] 650 mg PEG Q12 05/26/18 - Allergies Allergies/Adverse Reactions: Allergies Allergy/AdvReac Type Severity Reaction Status Date / Time No Known Allergies Allergy Verified 12/30/17 13:46 Review of Systems Review Of Systems: ROS cannot be obtained secondary to pt's inabilty to answer questions. Constitutional: Negative for: Fever, Chills Physical Exam - Reviewed Nursing Documentation Reviewed: Yes Vital Signs Reviewed: Yes - Physical Exam Appears: Positive for: Well, Non-toxic, No Acute Distress Head Exam: Positive for: ATRAUMATIC, NORMAL INSPECTION, NORMOCEPHALIC Skin: Positive for: Warm. Negative for: Normal Color ((+) mild bleeding from stoma, no surrounding erythema or edema, non-tender ) Eye Exam: Positive for: Normal appearance ENT: Positive for: Normal ENT Inspection Neck: Positive for: Normal Cardiovascular/Chest: Positive for: Regular Rate, Rhythm. Negative for: Bradycardia, Tachycardia Respiratory: Positive for: Normal Breath Sounds. Negative for: Accessory Muscle Use, Respiratory Distress Gastrointestinal/Abdominal: Positive for: Normal Exam, Soft. Negative for: Tenderness Back: Positive for: Normal Inspection Extremity: Positive for: Normal ROM Neurologic/Psych: Positive for: Alert, Oriented - Laboratory Results Result Diagrams: 05/26/18 17:02 05/26/18 17:02 - ECG O2 Sat by Pulse Oximetry: 96 Medical Decision Making Medical Decision Making: Unable to insert new G-tube at bedside with Dr. Guerrier. 18 gauge soares catheter placed in stoma and XR confirmed placement. Discussed with Dr. Greco and Dr. Red. Pt will be admitted for G-tube placement tomorrow. Disposition - Clinical Impression Clinical Impression: Complaint associated with gastric tube - Patient ED Disposition Is Patient to be Admitted: Yes - Disposition Disposition Time: 16:30 Condition: STABLE - Pt Status Changed To: Hospital Disposition Of: Observation - Admit Certification Admit to Inpatient:: M/S - POA Present On Arrival: None
[2018-05-26] MEDS ORDERED: Diatriz Meglumine/Diatriz Sod 30 ML BOTTLE PO ONE (16:03)
--- NOTE | 2018-05-26 16:44 | RAD ---
Date of service: 05/26/2018 HISTORY: G-tube placement - with contrast COMPARISON: None available. FINDINGS: BOWEL: G-tube identified proximal stomach. Contrast fills this portion of the stomach with reflux into the esophagus and antegrade flow of barium through the decompressed stomach. BONES: Normal. OTHER FINDINGS: None. IMPRESSION: Satisfactory position of gastrostomy tube. Contrast identified both distally in the stomach and proximally in the esophagus.
[2018-05-26] MEDS ORDERED: Iohexol 240 (10 ml) PO STA (17:01)
[2018-05-26] MEDS ORDERED: Iohexol 240 (50 ml) PO STA (17:04)
[2018-05-26 17:11] LABS: PROTHROMBIN TIME 11.3 Seconds (9.8-13.1)
[2018-05-26 17:13] LABS: PARTIAL THROMBOPLASTIN TIME 33.4 Seconds (25.6-37.1)
[2018-05-26 17:14] LABS: BASO # 0.1 K/uL (0.0-0.2); BASO % 0.9 % (0.0-2.0); EOS # 0.2 K/uL (0.0-0.7); EOS % 2.6 % (0.0-4.0); HEMOGLOBIN 14.7 g/dL (12.0-16.0); LYMPH % 27.3 % (20.0-40.0); MEAN CELL VOLUME 91.7 fl (81.0-99.0); MEAN CORPUSCULAR HEMOGLOBIN 30.2 pg (27.0-31.0); MEAN CORPUSCULAR HGB CONC 32.9 g/dL (33.0-37.0); MEAN PLATELET VOLUME 9.5 fl (7.2-11.7); MONO # 0.6 K/uL (0.0-0.8); NEUT # 4.4 K/uL (1.8-7.0); NEUT % 61.2 % (50.0-75.0); RBC 4.86 Mil/uL (3.80-5.20); RED CELL DISTRIBUTION WIDTH 13.5 % (11.5-14.5); WHITE BLOOD COUNT 7.2 K/uL (4.8-10.8)
[2018-05-26 17:15] LABS: ALB/GLOB RATIO 0.9 (1.0-2.1); ALBUMIN 3.6 g/dL (3.5-5.0); ALT/SGPT 19 U/L (9-52); AST/SGOT 25 U/L (14-36); BLOOD UREA NITROGEN 15 mg/dl (7-17); CALCIUM 10.9 mg/dL (8.4-10.2); GFR NON-AFRICAN AMERICAN > 60
[2018-05-27 15:33] VITALS: BP 158/99; PULSE 89; RESP 16; TEMP 98.2; O2SAT 96
--- NOTE | 2018-05-27 17:03 | CP.PCM.HP ---
History of Present Illness - History of Present Illness History of Present Illness: C: Dislodged G-tube. 83 y/o F, Hx Dementia/Alzheimer's Disease, HTN, CVA, Cerebral Aneurysm, brought from [facility] via EMS to ER [facility]ARAJAN due to dislodged Peg Tube on DOA, no c/o of pain. G tube was pulled out by Pt while in NH. Present on Admission - Present on Admission Any Indicators Present on Admission: No Review of Systems - Review of Systems Systems not reviewed;Unavailable: Acuity of Condition, Dementia Past Patient History - Past Medical History & Family History Past Medical History?: Yes Pertinent Family History: Unknown - Past Social History Smoking Status: Never Smoked Alcohol: None Drugs: Denies Home Situation {Lives}: [facility] - CARDIAC Hx Cardiac Disorders: Yes Hx Hypercholesterolemia: Yes Hx Hypertension: Yes - PULMONARY Hx Respiratory Disorders: Yes Hx Bronchitis: Yes - NEUROLOGICAL Hx Neurological Disorder: Yes Hx Alzheimer's Disease: Yes Hx Dementia: Yes Hx Transient Ischemic Attacks (TIA): Yes - HEENT Hx HEENT Problems: Yes (Use eyeglasses) - RENAL Hx Chronic Kidney Disease: No - ENDOCRINE/METABOLIC Hx Endocrine Disorders: Yes Hx Diabetes Mellitus Type 2: Yes - HEMATOLOGICAL/ONCOLOGICAL Hx Blood Disorders: No Hx Human Immunodeficiency Virus (HIV): No - INTEGUMENTARY Hx Dermatological Problems: No - MUSCULOSKELETAL/RHEUMATOLOGICAL Hx Musculoskeletal Disorders: Yes Hx Arthritis: Yes - GASTROINTESTINAL Hx Gastrointestinal Disorders: Yes Hx Gall Bladder Disease: Yes - GENITOURINARY/GYNECOLOGICAL Hx Genitourinary Disorders: Yes Hx Incontinence: Yes - PSYCHIATRIC Hx Psychophysiologic Disorder: Yes Hx Anxiety: Yes - SURGICAL HISTORY Hx Cholecystectomy: Yes - ANESTHESIA Hx Anesthesia: Yes Hx Anesthesia Reactions: No Hx Malignant Hyperthermia: No Meds Allergies/Adverse Reactions: Allergies Allergy/AdvReac Type Severity Reaction Status Date / Time No Known Allergies Allergy Verified 12/30/17 13:46 Physical Exam - Constitutional Appears: Chronically Ill - Head Exam Head Exam: NORMAL INSPECTION - Eye Exam Eye Exam: PERRL - ENT Exam ENT Exam: Normal Exam - Neck Exam Neck exam: Positive for: Normal Inspection - Respiratory Exam Respiratory Exam: Clear to Auscultation Bilateral - Cardiovascular Exam Cardiovascular Exam: REGULAR RHYTHM - GI/Abdominal Exam GI & Abdominal Exam: Normal Bowel Sounds, Soft Additional comments: Pedroza Cath inserted in the stoma of previous GT. - Back Exam Back exam: NORMAL INSPECTION - Neurological Exam Additional comments: Awake, confused, mumbling sounds, generalized weakness. - Skin Skin Exam: Warm Results - Vital Signs Recent Vital Signs: Last Vital Signs Temp 98.2 F 05/27/18 15:19 Pulse 89 05/27/18 15:19 Resp 16 05/27/18 15:19 BP 158/99 H 05/27/18 15:19 Pulse Ox 96 05/27/18 15:19 reviewed Kaylyn - Labs Result Diagrams: 05/26/18 17:02 05/26/18 17:02 Labs: Laboratory Results - last 24 hr 05/26/18 05/26/18 05/26/18 17:02 17:02 17:02 WBC 7.2 RBC 4.86 Hgb 14.7 Hct 44.6 MCV 91.7 MCH 30.2 MCHC 32.9 L RDW 13.5 Plt Count 229 MPV 9.5 Neut % (Auto) 61.2 Lymph % (Auto) 27.3 Leake % (Auto) 8.0 Eos % (Auto) 2.6 Baso % (Auto) 0.9 Neut # (Auto) 4.4 Lymph # (Auto) 2.0 Leake # (Auto) 0.6 Eos # (Auto) 0.2 Baso # (Auto) 0.1 PT 11.3 INR 1.0 APTT 33.4 Sodium 136 Potassium 4.2 Chloride 102 Carbon Dioxide 28 Anion Gap 10 BUN 15 Creatinine 0.4 L Est GFR ( Amer) > 60 Est GFR (Non-Af Amer) > 60 POC Glucose (mg/dL) Random Glucose 189 H Calcium 10.9 H Total Bilirubin 0.8 AST 25 ALT 19 Alkaline Phosphatase 109 Total Protein 7.6 Albumin 3.6 Globulin 4.0 H Albumin/Globulin Ratio 0.9 L 05/26/18 05/27/18 05/27/18 17:34 08:22 13:26 WBC RBC Hgb Hct MCV MCH MCHC RDW Plt Count MPV Neut % (Auto) Lymph % (Auto) Leake % (Auto) Eos % (Auto) Baso % (Auto) Neut # (Auto) Lymph # (Auto) Leake # (Auto) Eos # (Auto) Baso # (Auto) PT INR APTT Sodium Potassium Chloride Carbon Dioxide Anion Gap BUN Creatinine Est GFR ( Amer) Est GFR (Non-Af Amer) POC Glucose (mg/dL) 186 H 188 H 176 H Random Glucose Calcium Total Bilirubin AST ALT Alkaline Phosphatase Total Protein Albumin Globulin Albumin/Globulin Ratio reviewed J.P. - Imaging and Cardiology Abdominal x-ray Status: Report reviewed by me (Kaylyn) Assessment & Plan (1) Dislodged gastrostomy tube Status: Acute Priority: High (2) Altered mental status Status: Acute Priority: High - Assessment and Plan (Free Text) Plan: Pedroza Cath inserted in the stoma of the previous Peg Tube, Pt doing well. Pt stable for discharge to [facility], I will follow Pt in this facility. F/U GI with GI foreign law consultant. - Date & Time Date: 05/27/18 Time: 12:30
== END 2018-05-27 15:19 ==
LOC: H.ER 10:59 → H.ERHOLD 16:37
PROVIDERS: ADMIT Internal Medicine Pulmonary Disease; ATTEND Internal Medicine Pulmonary Disease
DX: K94.23 Gastrostomy malfunction (principal); F02.80 Dementia in other diseases classified elsewhere, unspecified severity, without behavioral disturbance, psychotic disturbance, mood disturbance, and anxiety; G30.9 Alzheimer's disease, unspecified; I10 Essential (primary) hypertension; E11.9 Type 2 diabetes mellitus without complications; E78.00 Pure hypercholesterolemia, unspecified; F41.9 Anxiety disorder, unspecified; M19.90 Unspecified osteoarthritis, unspecified site; Z86.73 Personal history of transient ischemic attack (TIA), and cerebral infarction without residual deficits
CPT/HCPCS: 74018; 80053; 82948; 85025; 85610; 85730; 99285; G0378; Q9958; Q9966

== ENCOUNTER 2018-06-08 08:51 | Inpatient (IN) | payer MEDICARE, MEDICAID ==
[2018-06-08] MEDS ORDERED: Sodium Chloride 0.9% 1,000 ML IV STA (09:06)
--- NOTE | 2018-06-08 09:07 | ED PDOC ---
HPI: Seizure Time Seen by Provider: 06/08/18 08:54 History Per: EMS Recent Seizure Activity Began: Just Before Arrival Number Of Seizures: Multiple Length Of Seizures (Duration): Unknown Quality Of Seizure: Focal Involving: (Right upper ext and right side of face) Precipitating Factor(s): None Post-ictal Period: No Severity: Moderate Additional Complaint(s): Brought by EMS from [facility] home for seizure, shaking right upper ext and right side of face since this AM. Pt received 2 mg Ativan IOV by paramedics with temporary resolution of seizure but seizure recurred in ED. Received 2 mg IV Ativan in ED with resolution of seizure. NIHSS Stroke Scale - How Severe is the Stroke Level of Consciousness: 0=Alert LOC to Questions: 2=Neither correct LOC to commands: 2=Neither correct Best Gaze: 0=Normal Visual: 0=No visual loss Facial: 1=Minor asymmetry Motor Arm - Left: 4=No movement Motor Arm - Right: 0=No drift Motor Leg - Left: 4=No movement Motor Leg - Right: 0=No drift Limb Ataxia: 0=Absent Sensory: 0=Normal Best Language: 2=Severe aphasia Dysarthia: 2=Severe, near unintelligible or worse Extinction & Inattention (Neglect): 0=Normal, no object Score: 17 Past Medical History - Medical History PMH: Alzheimer's Disease, Anxiety, Arthritis, Bronchitis, CVA, Dementia, Gall Bladder Disease, HTN, Hypercholesterolemia, TIA Denies: HIV, Chronic Kidney Disease - Surgical History Surgical History: Cholecystectomy - Family History Family History: States: Unknown Family Hx - Home Medications Home Medications: Ambulatory Orders Medication Instructions Recorded Atorvastatin [Lipitor] 40 mg PEG HS 12/30/17 Carvedilol [Coreg] 6.25 mg PEG Q12 12/30/17 Insulin Lispro [humALOG] 6 unit SC ACTID 12/30/17 Clopidogrel [Plavix] 75 mg PEG DAILY tab 01/03/18 Aspirin [Aspirin Chewable] 81 mg PEG QPM 05/26/18 Famotidine [Pepcid] 20 mg PEG HS 05/26/18 Nitroglycerin 0.1 mg/hr [Nitro-Dur 1 patch TD DAILY 05/26/18 0.1 mg/hr Patch] amLODIPine [Norvasc] 5 mg PEG DAILY 05/26/18 levETIRAcetam Solution [Keppra] 650 mg PEG Q12 05/26/18 Albuterol/Ipratropium [Duoneb 3 3 ml IH PRN PRN 06/08/18 MG/3 Ml-0.5 MG/3 Ml 3 Ml] - Allergies Allergies/Adverse Reactions: Allergies Allergy/AdvReac Type Severity Reaction Status Date / Time No Known Allergies Allergy Verified 12/30/17 13:46 Review of Systems Review Of Systems: ROS cannot be obtained secondary to pt's inabilty to answer questions. Physical Exam - Reviewed Nursing Documentation Reviewed: Yes Vital Signs Reviewed: Yes - Physical Exam Appears: Positive for: Non-toxic Head Exam: Positive for: ATRAUMATIC, NORMAL INSPECTION, NORMOCEPHALIC Skin: Positive for: Normal Color, Warm, DRY Eye Exam: Positive for: EOMI, Normal appearance, PERRL ENT: Positive for: Normal ENT Inspection Neck: Positive for: Normal, Painless ROM Cardiovascular/Chest: Positive for: Regular Rate, Rhythm Respiratory: Positive for: Rhonchi. Negative for: Respiratory Distress Gastrointestinal/Abdominal: Positive for: Normal Exam, Soft Back: Positive for: Normal Inspection Extremity: Positive for: Normal ROM Neurologic/Psych: Negative for: Alert (Pt responds to verbal stimuli by turning head and grunting while seizure is occurring. ) - Laboratory Results Result Diagrams: 06/08/18 09:15 06/08/18 09:15 Disposition - Clinical Impression Clinical Impression: Recurrent seizures - Patient ED Disposition Is Patient to be Admitted: Yes - Disposition Disposition Time: 12:07 Condition: FAIR - Pt Status Changed To: Hospital Disposition Of: Inpatient - Admit Certification Admit to Inpatient:: After my assessment, the patient will require hospitalization for at least two midnights. This is because of the severity of symptoms shown, intensity of services needed, and/or the medical risk in this patient being treated as an outpatient. - POA Present On Arrival: None
[2018-06-08] MEDS ORDERED: Albuterol-Ipratrop 3 mg / 0.5 (3 ml) UD IH STA (09:13)
[2018-06-08 09:22] LABS: VENOUS BLOOD GAS BASE EXCESS 1.3 mmol/L (0.0-2.0); VENOUS BLOOD GAS PCO2 54 mmHg (40-60); VENOUS BLOOD GAS PO2 55 mm/Hg (30-55); VENOUS BLOOD PH 7.33 (7.32-7.43)
[2018-06-08 09:35] LABS: BASO # 0.1 K/uL (0.0-0.2); EOS # 0.2 K/uL (0.0-0.7); HEMOGLOBIN 14.9 g/dL (12.0-16.0); LYMPH # 1.8 K/uL (1.0-4.3); MEAN CORPUSCULAR HEMOGLOBIN 30.4 pg (27.0-31.0); MEAN PLATELET VOLUME 9.9 fl (7.2-11.7); MONO # 0.5 K/uL (0.0-0.8); MONO % 5.2 % (0.0-10.0); NEUT # 7.2 K/uL (1.8-7.0); NEUT % 73.8 % (50.0-75.0); NRBC % 0.1 % (0.0-0.0); RBC 4.9 Mil/uL (3.80-5.20); RED CELL DISTRIBUTION WIDTH 13.5 % (11.5-14.5); WHITE BLOOD COUNT 9.8 K/uL (4.8-10.8)
[2018-06-08 09:43] LABS: ALB/GLOB RATIO 0.9 (1.0-2.1); ALBUMIN 3.8 g/dL (3.5-5.0); ALT/SGPT 13 U/L (9-52); AST/SGOT 29 U/L (14-36); BLOOD UREA NITROGEN 17 mg/dl (7-17); CALCIUM 10.8 mg/dL (8.4-10.2); GFR NON-AFRICAN AMERICAN > 60
[2018-06-08] MEDS ORDERED: Albuterol-Ipratrop 3 mg / 0.5 (3 ml) UD ONE (09:47)
[2018-06-08 10:00] LABS: URINE BILIRUBIN NEGATIVE (NEGATIVE); URINE BLOOD NEGATIVE (NEGATIVE); URINE CLARITY SLIGHTY-CLOUDY (Clear); URINE COLOR YELLOW (YELLOW); URINE GLUCOSE (UA) 150 mg/dL (Normal); URINE LEUKOCYTE ESTERASE MOD Leu/uL (Negative); URINE PROTEIN 30 mg/dL (NEGATIVE); URINE UROBILINOGEN 0.2-1.0 mg/dL (0.2-1.0)
--- NOTE | 2018-06-08 10:14 | RAD ---
Date of service: 06/08/2018 HISTORY: cough COMPARISON: Comparison chest 01/03/2018.. FINDINGS: LUNGS: Poor inspiration low lung volumes, crowded bronchovascular markings and mild bibasilar atelectasis.. PLEURA: No significant pleural effusion identified, no pneumothorax apparent. CARDIOVASCULAR: . Aortic atherosclerotic calcification present. Heart appears mildly enlarged.. No pulmonary vascular congestion. OSSEOUS STRUCTURES: No significant abnormalities. VISUALIZED UPPER ABDOMEN: Normal. OTHER FINDINGS: None. IMPRESSION: Poor inspiration low lung volumes, crowded bronchovascular markings and mild bibasilar atelectasis..
[2018-06-08] MEDS ORDERED: Iohexol 300 100 ML IJ ONE (10:58)
[2018-06-08] MEDS ORDERED: Sodium Chloride 0.9% 50 ML IV ONE (10:59)
[2018-06-08] MEDS ORDERED: Sodium Chloride 0.9% 100 ML ONE (11:14)
[2018-06-08] MEDS ORDERED: Iodixanol 320 MG/ML 100 ML BOTTLE IV ONE (11:14)
--- NOTE | 2018-06-08 12:03 | CT ---
Date of service: 06/08/2018 PROCEDURE: CT HEAD WITHOUT CONTRAST. HISTORY: r/o bleed COMPARISON: Comparison made with CT scan of the brain dated 12/30/2017. TECHNIQUE: Axial computed tomography images were obtained through the head/brain without intravenous contrast. Radiation dose: Total exam DLP = 806.79 mGy-cm. This CT exam was performed using one or more of the following dose reduction techniques: Automated exposure control, adjustment of the mA and/or kV according to patient size, and/or use of iterative reconstruction technique. FINDINGS: HEMORRHAGE: No intracranial hemorrhage. BRAIN: Moderate to significant diffuse and confluent chronic white matter ischemic changes extending peripherally into the deep and subcortical white matter both cerebral hemispheres. There is extension of these changes into the white matter tracts of both basal nuclei. Chronic left [employer]ING WORKER territory infarct associate with ex vacuo dilatation of the left atrium, left occipital temporal horns.. Discrete chronic left posterior thalamic and scattered chronic bilateral basal nuclei as well as brainstem lacunar type infarcts are present though seen to better advantage on prior MRI. The Redemonstrated is irregular wall thickening of the right frontoparietal calvarium with what may represent en- plaque meningioma with more localized focal components. Moderate-significant generalized volume loss. VENTRICLES: No obstructive hydrocephalus not withstanding ex vacuo dilatation left atrium/left occipital horn due to chronic left MOVING WORKER territory infarct. CALVARIUM: As above. PARANASAL SINUSES: Complete opacification of the right maxillary antrum with hyperdense debris. Rule out chronic rhinosinusitis or fungal infection. MASTOID AIR CELLS: Unremarkable as visualized. No inflammatory changes. OTHER FINDINGS: None. IMPRESSION: No acute intracranial hemorrhage. Moderate to significant diffuse and confluent chronic white matter ischemic changes extending peripherally into the deep and subcortical white matter both cerebral hemispheres. There is extension of these changes into the white matter tracts of both basal nuclei. Chronic left MOVING WORKER territory infarct associate with ex vacuo dilatation of the left atrium, left occipital and temporal horns. Discrete chronic left posterior thalamic and scattered chronic bilateral basal nuclei as well as brainstem lacunar type infarcts are present though seen to better advantage on prior MRI. Redemonstrated is irregular wall thickening of the right frontoparietal calvarium with what may represent en- plaque meningioma with more localized focal components. Moderate-significant generalized volume loss.
--- NOTE | 2018-06-08 12:24 | CT ---
Date of service: 06/08/2018 PROCEDURE: CT Angiography of the brain HISTORY: Seizure. History of aneurysm. COMPARISON: Comparison made with noncontrast CT scan obtained earlier same day as well as prior MRI brain 12/31/2017. TECHNIQUE: CT angiography of the brain performed from approximately the lower cervical region to the skull vertex.. Coronal and sagittal maximum intensity projection reformated images were generated. Radiation dose: Total exam DLP = 1531.91 mGy-cm. This CT exam was performed using one or more of the following dose reduction techniques: Automated exposure control, adjustment of the mA and/or kV according to patient size, and/or use of iterative reconstruction technique. FINDINGS: The visualized common carotid arteries, widely patent. Some very minor plaque changes seen at both carotid bifurcations without occlusion or significant stenosis. The internal carotid arteries including the petrous cavernous and supraclinoid segments are also widely patent. Minor calcified plaque changes are also seen along the carotid siphons.. The visualized major branches of the [id number] are also patent. There is a small approximately 3.4 mm aneurysm apparently arising at the origin of the right posterior communicating artery, the dome of which is oriented posteriorly and laterally to the right The distal anterior and middle cerebral artery branches are patent and appear relatively symmetric so far as can be seen. The vertebral arteries are patent throughout right-sided which is larger in caliber/more dominant than the left side. Basilar artery is patent. The distal left posterior cerebral artery is not visualized consistent with chronic infarct in the left posterior cerebral artery vascular territory. The distal branches of the right posterior cerebral artery are visible. OTHER FINDINGS: Questionable right frontoparietal intraosseous meningioma with en plaque and/or more focal extra-axial components. IMPRESSION: Minor calcified plaque changes seen along both carotid bifurcations without occlusion or significant stenosis. No evidence of dissection. There is a small approximately 3.4 mm aneurysm arising from the at the origin of the right posterior communicating artery. There is occlusion of the left distal posterior cerebral artery consistent with chronic infarct in this vascular territory. Questionable right frontoparietal intraosseous meningioma with en plaque and/or more focal extra-axial components.
--- NOTE | 2018-06-08 16:58 | CP.PCM.HP ---
History of Present Illness - History of Present Illness History of Present Illness: CC: Seizure. 83 y/o F, resident at [facility], PMHx: Alzheimer/Dementia, Hx of CVA, HTN, COPD, DMII, O/A, brought via EMS to ER [facility], [place] to be evaluated for multiple episodes of Seizure like activity, unknown length of episode, associated to focal deficit of RUE and R side of face shaking, twitching movements to the left side of body, onset in AM DOA, Pt had 2 mg Ativan IV by Paramedics with temporary relief. Worsening symptoms: Recurrent episode of Seizure while in the ER, severe aphasia, weakness, fail swallow screen. Aggravated factor: Unable to response. As per NH: No fever, chills, n/v/d, abdominal pain, urinary symptoms, fall, CP, palpitations, SOB, cough, sick contact. CXR: Mild bibasilar atelectasis, poor inspiration low lung volumes. Head CT: Chronic infarcts and white matter changes. Redemonstrated is irregular wall thickening of the right frontoparietal calvarium with what may r epresent en-plaque meningioma with more localized focal components. Present on Admission - Present on Admission Any Indicators Present on Admission: No Review of Systems - Review of Systems Systems not reviewed;Unavailable: Acuity of Condition, Altered Mental Status Past Patient History - Past Medical History & Family History Past Medical History?: Yes Pertinent Family History: Unknown - Past Social History Smoking Status: Never Smoked Alcohol: None Drugs: Denies Home Situation {Lives}: Alf - CARDIAC Hx Cardiac Disorders: Yes Hx Hypercholesterolemia: Yes Hx Hypertension: Yes - PULMONARY Hx Respiratory Disorders: Yes Hx Bronchitis: Yes Hx Chronic Obstructive Pulmonary Disease (COPD): Yes - NEUROLOGICAL Hx Neurological Disorder: Yes Hx Alzheimer's Disease: Yes HX Cerebrovascular Accident: Yes Hx Dementia: Yes Hx Transient Ischemic Attacks (TIA): Yes - HEENT Hx HEENT Problems: No - RENAL Hx Chronic Kidney Disease: No - ENDOCRINE/METABOLIC Hx Endocrine Disorders: Yes Hx Diabetes Mellitus Type 2: Yes - HEMATOLOGICAL/ONCOLOGICAL Hx Blood Disorders: No Hx Human Immunodeficiency Virus (HIV): No - INTEGUMENTARY Hx Dermatological Problems: No - MUSCULOSKELETAL/RHEUMATOLOGICAL Hx Musculoskeletal Disorders: Yes Hx Arthritis: Yes Hx Falls: No Hx Unsteady Gait: Yes - GASTROINTESTINAL Hx Gastrointestinal Disorders: Yes Hx Clostridium Difficile: No Hx Gall Bladder Disease: Yes - GENITOURINARY/GYNECOLOGICAL Hx Genitourinary Disorders: Yes Hx Incontinence: Yes - PSYCHIATRIC Hx Psychophysiologic Disorder: Yes Hx Anxiety: Yes Hx Substance Use: No - SURGICAL HISTORY Hx Surgeries: Yes Hx Cholecystectomy: Yes - ANESTHESIA Hx Anesthesia: Yes Hx Anesthesia Reactions: No Hx Malignant Hyperthermia: No Has any member of the family had a problem w/ anesthesia?: No Meds Allergies/Adverse Reactions: Allergies Allergy/AdvReac Type Severity Reaction Status Date / Time No Known Allergies Allergy Verified 12/30/17 13:46 Physical Exam - Constitutional Appears: Chronically Ill - Head Exam Head Exam: NORMAL INSPECTION - Eye Exam Eye Exam: PERRL - ENT Exam ENT Exam: Normal Exam - Neck Exam Neck exam: Positive for: Normal Inspection - Respiratory Exam Respiratory Exam: Decreased Breath Sounds (at bases) - Cardiovascular Exam Cardiovascular Exam: REGULAR RHYTHM - GI/Abdominal Exam GI & Abdominal Exam: Normal Bowel Sounds, Soft Additional comments: Peg tube - Extremities Exam Extremities exam: Positive for: normal inspection - Neurological Exam Additional comments: Lethargic, arousable, R side hemiparesia, mumbling sounds, no following commands. - Skin Skin Exam: Warm Results - Vital Signs Recent Vital Signs: Last Vital Signs Temp 97.3 F L 06/08/18 16:30 Pulse 62 06/08/18 16:30 Resp 16 06/08/18 16:30 BP 135/78 06/08/18 16:30 Pulse Ox 100 06/08/18 16:30 reviewed Kaylyn - Labs Result Diagrams: 06/08/18 09:15 06/08/18 09:15 Labs: Laboratory Results - last 24 hr 06/08/18 06/08/18 06/08/18 09:05 09:15 09:15 WBC 9.8 RBC 4.90 Hgb 14.9 Hct 45.1 MCV 92.0 MCH 30.4 MCHC 33.0 RDW 13.5 Plt Count 282 MPV 9.9 Neut % (Auto) 73.8 Lymph % (Auto) 18.0 L Gregg % (Auto) 5.2 Eos % (Auto) 2.0 Baso % (Auto) 1.0 Neut # (Auto) 7.2 H Lymph # (Auto) 1.8 Gregg # (Auto) 0.5 Eos # (Auto) 0.2 Baso # (Auto) 0.1 pO2 55 VBG pH 7.33 VBG pCO2 54 VBG HCO3 25.6 VBG Total CO2 30.2 H VBG O2 Sat (Calc) 92.6 H VBG Base Excess 1.3 VBG Potassium 3.9 Sodium 136.0 139 Chloride 99.0 101 Glucose 147 H Lactate 4.6 H* FiO2 21.0 Crit Value Called To Dr chris singh Crit Value Called By 15 Crit Value Read Back Y Blood Gas Notified Time 922 Potassium 4.2 Carbon Dioxide 24 Anion Gap 18 BUN 17 Creatinine 0.4 L Est GFR ( Amer) > 60 Est GFR (Non-Af Amer) > 60 Random Glucose 139 H Calcium 10.8 H Total Bilirubin 0.6 AST 29 ALT 13 Alkaline Phosphatase 117 Total Protein 8.0 Albumin 3.8 Globulin 4.2 H Albumin/Globulin Ratio 0.9 L Venous Blood Potassium 3.9 Urine Color Urine Clarity Urine pH Ur Specific [place]prise Urine Protein Urine Glucose (UA) Urine Ketones Urine Blood Urine Nitrate Urine Bilirubin Urine Urobilinogen Ur Leukocyte Esterase 06/08/18 09:50 WBC RBC Hgb Hct MCV MCH MCHC RDW Plt Count MPV Neut % (Auto) Lymph % (Auto) Gregg % (Auto) Eos % (Auto) Baso % (Auto) Neut # (Auto) Lymph # (Auto) Gregg # (Auto) Eos # (Auto) Baso # (Auto) pO2 VBG pH VBG pCO2 VBG HCO3 VBG Total CO2 VBG O2 Sat (Calc) VBG Base Excess VBG Potassium Sodium Chloride Glucose Lactate FiO2 Crit Value Called To Crit Value Called By Crit Value Read Back Blood Gas Notified Time Potassium Carbon Dioxide Anion Gap BUN Creatinine Est GFR ( Amer) Est GFR (Non-Af Amer) Random Glucose Calcium Total Bilirubin AST ALT Alkaline Phosphatase Total Protein Albumin Globulin Albumin/Globulin Ratio Venous Blood Potassium Urine Color Yellow Urine Clarity Slighty-cloudy Urine pH 6.0 Ur Specific Surprise 1.011 Urine Protein 30 Urine Glucose (UA) 150 Urine Ketones Negative Urine Blood Negative Urine Nitrate Negative Urine Bilirubin Negative Urine Urobilinogen 0.2-1.0 Ur Leukocyte Esterase Mod reviewed J.P. - EKG Data EKG comments: reviewed J.P. - Imaging and Cardiology CT scan - head Status: Report reviewed by me (JStephenP.) Assessment & Plan (1) Recurrent seizures Status: Acute Priority: High (2) Altered mental status Status: Acute Priority: High (3) Dementia Status: Chronic Priority: High (4) History of CVA (cerebrovascular accident) Status: Chronic Priority: High (5) Hypertension Status: Chronic Priority: Medium (6) DMII (diabetes mellitus, type 2) Status: Chronic Priority: Medium - Assessment and Plan (Free Text) Plan: EKG, CT Angiography, Blood C-S, continue with Keppra and rest of Tx. Neurology consult. PT,OT lizbet. - Date & Time Date: 06/08/18 Time: 13:40
[2018-06-08] MEDS: Dextrose 5%/0.45% NS 1,000 ML IV SCH (18:53)
[2018-06-08] MEDS: levETIRAcetam 1,000 MG in Sodium Chloride 0.9% 100 ML IVPB SCH (22:11)
--- NOTE | 2018-06-08 23:28 | CARD ---
APPROVED REPORT Date of service: 06/08/2018 EKG Measurement Heart [id number] <Conclusion> Normal sinus rhythm Baseline artifact, recommend repeating ECG Nonspecific T wave abnormality Abnormal ECG
[2018-06-09] MEDS: levETIRAcetam 1,000 MG in Sodium Chloride 0.9% 100 ML IVPB SCH ×2 (08:11→21:35)
[2018-06-09] MEDS: Dextrose 5%/0.45% NS 1,000 ML IV SCH (08:11)
[2018-06-09] MEDS ORDERED: Albuterol-Ipratrop 3 mg / 0.5 (3 ml) UD IH PRN (09:36)
[2018-06-09] MEDS ORDERED: Influenza Vaccine 60 MCG/0.5 ML SYR (3 yr & up) IM ONE (11:00)
[2018-06-09] MEDS: Nitroglycerin 0.1 mg/hr Top Patch TD SCH (12:16)
[2018-06-09] MEDS: Insulin Lispro (humaLOG) 100 Units/ml Inj SC SCH ×2 (12:23→16:47)
--- NOTE | 2018-06-09 16:51 | CP.PCM.PN ---
Subjective - Date & Time of Evaluation Date of Evaluation: 06/09/18 Time of Evaluation: 11:30 - Subjective Subjective: F/U Seizure/ AMS lethargic, arousable, mumbling sounds Objective - Vital Signs/Intake and Output Vital Signs (last 24 hours): Temp Pulse Resp BP Pulse Ox 99.1 F 86 20 114/59 L 95 06/09/18 16:23 06/09/18 16:23 06/09/18 16:23 06/09/18 16:23 06/09/18 16:23 Intake and Output: 06/09/18 06/09/18 06:59 18:59 Intake Total 1060 Output Total 580 Balance 480 - Medications Medications: Current Medications Albuterol/Ipratropium (Duoneb 3 Mg/0.5 Mg (3 Ml) Ud) 3 ml IH PRN PRN PRN Reason: SOB Amlodipine Besylate (Norvasc) 5 mg PEG DAILY [facility] Last Admin: 06/09/18 12:16 Dose: 5 mg Aspirin (Aspirin Chewable) 81 mg PEG QPM [facility] Atorvastatin Calcium (Lipitor) 40 mg PEG HS [facility] Carvedilol (Coreg) 6.25 mg PEG Q12 [facility] Clopidogrel Bisulfate (Plavix) 75 mg PEG DAILY [facility] Famotidine (Pepcid) 20 mg PEG HS [facility] Levetiracetam 1,000 mg/ Sodium (Chloride) 110 mls @ 110 mls/hr IVPB Q12 [facility] Last Admin: 06/09/18 08:11 Dose: 110 mls/hr Dextrose/Sodium Chloride (Dextrose 5%/0.45% Ns 1000 Ml) 1,000 mls @ 80 mls/hr IV .[id number] [facility] Stop: 06/09/18 18:06 Last Admin: 06/09/18 08:11 Dose: 80 mls/hr Insulin Human Lispro (Humalog) 6 units SC ACTID [facility] Last Admin: 06/09/18 16:47 Dose: 6 units Nitroglycerin (Nitro-Dur 0.1 Mg/Hr Patch) 1 patch TD DAILY [facility] Last Admin: 06/09/18 12:16 Dose: 1 patch Pneumococcal Polyvalent Vaccine (Pneumovax 23 Vaccine) 0.5 ml IM .ONCE ONE Stop: 06/09/18 17:01 Last Admin: 06/09/18 16:44 Dose: 0.5 ml - Labs Labs: 06/08/18 09:15 06/08/18 09:15 - Constitutional Appears: Chronically Ill - Head Exam Head Exam: NORMAL INSPECTION - Eye Exam Eye Exam: PERRL - ENT Exam ENT Exam: Normal Exam - Neck Exam Neck Exam: Normal Inspection - Respiratory Exam Respiratory Exam: Decreased Breath Sounds (at bases) - Cardiovascular Exam Cardiovascular Exam: REGULAR RHYTHM - GI/Abdominal Exam GI & Abdominal Exam: Soft, Normal Bowel Sounds Additional comments: Peg tube - Extremities Exam Extremities Exam: Normal Inspection - Neurological Exam Neurological Exam: Awake Additional comments: Lethargic, arousable, mumbling sounds, R hemiparesia. - Skin Skin Exam: Warm Assessment and Plan (1) Recurrent seizures Status: Acute (2) Altered mental status Status: Acute (3) Dementia Status: Acute (4) History of CVA (cerebrovascular accident) Status: Chronic (5) Cerebral arterial aneurysm Status: Acute (6) HTN (hypertension) Status: Chronic (7) Diabetes mellitus Status: Chronic - Assessment and Plan (Free Text) Plan: CT Angiography Brain, no carotid occlusions, no significant stenosis,chronic infarct with occlusion Left distal posterior cerebral artery, small aneurysm right posterior communicating artery, questionable right frontoparietal meningioma, continue Keppra, Plavix, Norvasc, Peg feeding and rest of treatment, Neurology consult f/u, U C-S neg
[2018-06-09] MEDS ORDERED: Pneumococcal 23-Valent Vaccine IM ONE (17:00)
[2018-06-10 05:40] LABS: BASO % 0.5 % (0.0-2.0); EOS # 0.3 K/uL (0.0-0.7); HEMOGLOBIN 12.4 g/dL (12.0-16.0); LYMPH # 1.8 K/uL (1.0-4.3); LYMPH % 21.2 % (20.0-40.0); MEAN CELL VOLUME 92.6 fl (81.0-99.0); MEAN CORPUSCULAR HEMOGLOBIN 30.6 pg (27.0-31.0); MEAN CORPUSCULAR HGB CONC 33.1 g/dL (33.0-37.0); MEAN PLATELET VOLUME 9.8 fl (7.2-11.7); MONO # 0.6 K/uL (0.0-0.8); MONO % 7.7 % (0.0-10.0); NEUT # 5.7 K/uL (1.8-7.0); NEUT % 67.6 % (50.0-75.0); NRBC % 0.1 % (0.0-0.0); RBC 4.05 Mil/uL (3.80-5.20); RED CELL DISTRIBUTION WIDTH 13.6 % (11.5-14.5); WHITE BLOOD COUNT 8.4 K/uL (4.8-10.8)
[2018-06-10 06:04] LABS: ALB/GLOB RATIO 0.8 (1.0-2.1); ALBUMIN 2.8 g/dL (3.5-5.0); ALT/SGPT 19 U/L (9-52); AST/SGOT 20 U/L (14-36); BLOOD UREA NITROGEN 12 mg/dl (7-17); CALCIUM 9.4 mg/dL (8.4-10.2); GFR NON-AFRICAN AMERICAN > 60
[2018-06-10] MEDS: Insulin Lispro (humaLOG) 100 Units/ml Inj SC SCH ×3 (08:52→17:14)
[2018-06-10] MEDS: levETIRAcetam 1,000 MG in Sodium Chloride 0.9% 100 ML IVPB SCH (08:53)
[2018-06-10] MEDS: Nitroglycerin 0.1 mg/hr Top Patch TD SCH (08:54)
--- NOTE | 2018-06-10 16:35 | CP.PCM.CON ---
History of Present Illness - History of Present Illness History of Present Illness: 83 yr old woman who is well known to our service, has a history of epilepsy who is admitted for change in mental status. IN brief, MIss Jeong is a 83 y/o F, resident at [facility], with pmh of dementia, stroke, hy peretnsion, COPD, DM 2, brought via EMS to [facility], [place] to be evaluated for multiple episodes of Seizure like activity, unknown length of episode, associated to focal deficit of RUE and R side of face shaking, twitching movements to the left side of body, onset in AM DOA, Pt had 2 mg Ativan IV by Paramedics with temporary relief. Patient is nonverbal so history is obtained from the chart. ROS: cannot obtain. Head CT: Chronic infarcts and white matter changes. Redemonstrated is irregula r wall thickening of the right frontoparietal calvarium with what may represent en-plaque meningioma with more localized focal components. ON exam: Opens eyes to commands, and moves all extremities. However, she is nonverbal and does not follow commands such as grab my hand or participate in the sensory exam. +2 dtr ul and ll bl. Toes downgoing. No clonus. PERRL. EOMI. no facial asymmetry. Past Patient History - Past Medical History & Family History Past Medical History?: Yes - Past Social History Smoking Status: Never Smoked Alcohol: None Drugs: Denies Home Situation {Lives}: Care Home - CARDIAC Hx Cardiac Disorders: Yes Hx Hypercholesterolemia: Yes Hx Hypertension: Yes - PULMONARY Hx Respiratory Disorders: Yes Hx Bronchitis: Yes Hx Chronic Obstructive Pulmonary Disease (COPD): Yes - NEUROLOGICAL Hx Neurological Disorder: Yes Hx Alzheimer's Disease: Yes HX Cerebrovascular Accident: Yes Hx Dementia: Yes Hx Transient Ischemic Attacks (TIA): Yes - HEENT Hx HEENT Problems: No - RENAL Hx Chronic Kidney Disease: No - ENDOCRINE/METABOLIC Hx Endocrine Disorders: Yes Hx Diabetes Mellitus Type 2: Yes - HEMATOLOGICAL/ONCOLOGICAL Hx Blood Disorders: No Hx Human Immunodeficiency Virus (HIV): No - INTEGUMENTARY Hx Dermatological Problems: No - MUSCULOSKELETAL/RHEUMATOLOGICAL Hx Musculoskeletal Disorders: Yes Hx Arthritis: Yes Hx Falls: No Hx Unsteady Gait: Yes - GASTROINTESTINAL Hx Gastrointestinal Disorders: Yes Hx Clostridium Difficile: No Hx Gall Bladder Disease: Yes - GENITOURINARY/GYNECOLOGICAL Hx Genitourinary Disorders: Yes Hx Incontinence: Yes - PSYCHIATRIC Hx Psychophysiologic Disorder: Yes Hx Anxiety: Yes Hx Substance Use: No - SURGICAL HISTORY Hx Surgeries: Yes Hx Cholecystectomy: Yes - ANESTHESIA Hx Anesthesia: Yes Hx Anesthesia Reactions: No Hx Malignant Hyperthermia: No Has any member of the family had a problem w/ anesthesia?: No Meds Home Medications: Home Medication List Medication Instructions Recorded Confirmed Type Ciprofloxacin HCl [Cipro] 500 mg PO Q12 #14 tablet 06/10/18 Rx Allergies/Adverse Reactions: Allergies Allergy/AdvReac Type Severity Reaction Status Date / Time No Known Allergies Allergy Verified 12/30/17 13:46 - Medications Medications: Current Medications Albuterol/Ipratropium (Duoneb 3 Mg/0.5 Mg (3 Ml) Ud) 3 ml IH PRN PRN PRN Reason: SOB Amlodipine Besylate (Norvasc) 5 mg PEG DAILY [facility] Last Admin: 06/10/18 08:57 Dose: 5 mg Aspirin (Aspirin Chewable) 81 mg PEG QPM [facility] Last Admin: 06/09/18 17:00 Dose: 81 mg Atorvastatin Calcium (Lipitor) 40 mg PEG HS [facility] Last Admin: 06/09/18 21:35 Dose: 40 mg Carvedilol (Coreg) 6.25 mg PEG Q12 [facility] Last Admin: 06/10/18 08:51 Dose: 6.25 mg Ciprofloxacin (Cipro) 500 mg PO Q12 [facility]; Protocol Clopidogrel Bisulfate (Plavix) 75 mg PEG DAILY [facility] Last Admin: 06/10/18 08:57 Dose: 75 mg Famotidine (Pepcid) 20 mg PEG HS [facility] Last Admin: 06/09/18 21:35 Dose: 20 mg Levetiracetam 1,000 mg/ Sodium (Chloride) 110 mls @ 110 mls/hr IVPB Q12 [facility] Last Admin: 06/10/18 08:53 Dose: 110 mls/hr Ceftriaxone Sodium 1 gm/ (Sodium Chloride) 100 mls @ 100 mls/hr IVPB DAILY [facility]; Protocol Insulin Human Lispro (Humalog) 6 units SC ACTID [facility] Last Admin: 06/10/18 13:34 Dose: 6 units Nitroglycerin (Nitro-Dur 0.1 Mg/Hr Patch) 1 patch TD DAILY [facility] Last Admin: 06/10/18 08:54 Dose: 1 patch Results - Vital Signs Recent Vital Signs: Last Vital Signs Temp 98.2 F 06/10/18 16:26 Pulse 66 06/10/18 16:26 Resp 20 06/10/18 16:26 BP 135/59 L 06/10/18 16:26 Pulse Ox 96 06/10/18 16:26 - Labs Result Diagrams: 06/10/18 04:25 06/10/18 04:25 Labs: Laboratory Results - last 24 hr 06/09/18 06/10/18 06/10/18 21:59 04:25 04:25 WBC 8.4 RBC 4.05 Hgb 12.4 D Hct 37.5 MCV 92.6 MCH 30.6 MCHC 33.1 RDW 13.6 Plt Count 221 MPV 9.8 Neut % (Auto) 67.6 Lymph % (Auto) 21.2 [place] % (Auto) 7.7 Eos % (Auto) 3.0 Baso % (Auto) 0.5 Neut # (Auto) 5.7 Lymph # (Auto) 1.8 [place] # (Auto) 0.6 Eos # (Auto) 0.3 Baso # (Auto) 0.0 Sodium 136 Potassium 3.7 Chloride 103 Carbon Dioxide 26 Anion Gap 11 BUN 12 Creatinine 0.4 L Est GFR ( Amer) > 60 Est GFR (Non-Af Amer) > 60 POC Glucose (mg/dL) 199 H Random Glucose 237 H Hemoglobin A1c Calcium 9.4 Magnesium 1.8 Total Bilirubin 0.5 AST 20 ALT 19 Alkaline Phosphatase 103 Total Protein 6.3 Albumin 2.8 L D Globulin 3.5 Albumin/Globulin Ratio 0.8 L 06/10/18 06/10/18 06/10/18 05:00 05:31 12:02 WBC RBC Hgb Hct MCV MCH MCHC RDW Plt Count MPV Neut % (Auto) Lymph % (Auto) [place] % (Auto) Eos % (Auto) Baso % (Auto) Neut # (Auto) Lymph # (Auto) [place] # (Auto) Eos # (Auto) Baso # (Auto) Sodium Potassium Chloride Carbon Dioxide Anion Gap BUN Creatinine Est GFR ( Amer) Est GFR (Non-Af Amer) POC Glucose (mg/dL) 236 H 192 H Random Glucose Hemoglobin A1c 8.0 H Calcium Magnesium Total Bilirubin AST ALT Alkaline Phosphatase Total Protein Albumin Globulin Albumin/Globulin Ratio 06/10/18 15:48 WBC RBC Hgb Hct MCV MCH MCHC RDW Plt Count MPV Neut % (Auto) Lymph % (Auto) [place] % (Auto) Eos % (Auto) Baso % (Auto) Neut # (Auto) Lymph # (Auto) [place] # (Auto) Eos # (Auto) Baso # (Auto) Sodium Potassium Chloride Carbon Dioxide Anion Gap BUN Creatinine Est GFR ( Amer) Est GFR (Non-Af Amer) POC Glucose (mg/dL) 144 H Random Glucose Hemoglobin A1c Calcium Magnesium Total Bilirubin AST ALT Alkaline Phosphatase Total Protein Albumin Globulin Albumin/Globulin Ratio Assessment & Plan - Assessment and Plan (Free Text) Assessment: 83 yr old woman with dementia and epilepsy who now had several breakthrough seizures. SHe is controlled on keppra 1000 mg iv q 12 hours, and stable to return to residential. I would recommend on continuing her on 750 mg bid keppra. Thank you Dr. Borges [facility]
--- NOTE | 2018-06-10 18:30 | CP.PCM.DIS ---
Provider - Provider Date of Admission: 06/08/18 12:05 Attending physician: Keith Red MD Consults: Neuro-Dr. Packer Time Spent in preparation of Discharge (in minutes): 35 Diagnosis - Discharge Diagnosis (1) Recurrent seizures Status: Acute Priority: High (2) Altered mental status Status: Acute Priority: High (3) Dementia Status: Acute (4) History of CVA (cerebrovascular accident) Status: Chronic (5) Cerebral arterial aneurysm Status: Acute (6) HTN (hypertension) Status: Chronic (7) Diabetes mellitus Status: Chronic Hospital Course - Lab Results Lab Results: Micro Results 06/08/18 09:15 Blood Blood Culture - Preliminary NO GROWTH AFTER 48 HOURS 06/08/18 09:50 Urine,Pedroza Urine Culture - Final Gram Negative Kenny Most Recent Lab Values WBC 8.4 K/uL (4.8-10.8) 06/10/18 04:25 RBC 4.05 Mil/uL (3.80-5.20) 06/10/18 04:25 Hgb 12.4 g/dL (12.0-16.0) D 06/10/18 04:25 Hct 37.5 % (34.0-47.0) 06/10/18 04:25 MCV 92.6 fl (81.0-99.0) 06/10/18 04:25 MCH 30.6 pg (27.0-31.0) 06/10/18 04:25 MCHC 33.1 g/dL (33.0-37.0) 06/10/18 04:25 RDW 13.6 % (11.5-14.5) 06/10/18 04:25 Plt Count 221 K/uL (130-400) 06/10/18 04:25 MPV 9.8 fl (7.2-11.7) 06/10/18 04:25 Neut % (Auto) 67.6 % (50.0-75.0) 06/10/18 04:25 Lymph % (Auto) 21.2 % (20.0-40.0) 06/10/18 04:25 Gregory % (Auto) 7.7 % (0.0-10.0) 06/10/18 04:25 Eos % (Auto) 3.0 % (0.0-4.0) 06/10/18 04:25 Baso % (Auto) 0.5 % (0.0-2.0) 06/10/18 04:25 Neut # (Auto) 5.7 K/uL (1.8-7.0) 06/10/18 04:25 Lymph # (Auto) 1.8 K/uL (1.0-4.3) 06/10/18 04:25 Gregory # (Auto) 0.6 K/uL (0.0-0.8) 06/10/18 04:25 Eos # (Auto) 0.3 K/uL (0.0-0.7) 06/10/18 04:25 Baso # (Auto) 0.0 K/uL (0.0-0.2) 06/10/18 04:25 pO2 55 mm/Hg (30-55) 06/08/18 09:05 VBG pH 7.33 (7.32-7.43) 06/08/18 09:05 VBG pCO2 54 mmHg (40-60) 06/08/18 09:05 VBG HCO3 25.6 mmol/L 06/08/18 09:05 VBG Total CO2 30.2 mmol/L (22-28) H 06/08/18 09:05 VBG O2 Sat (Calc) 92.6 % (40-65) H 06/08/18 09:05 VBG Base Excess 1.3 mmol/L (0.0-2.0) 06/08/18 09:05 VBG Potassium 3.9 mmol/L (3.6-5.2) 06/08/18 09:05 Sodium 136.0 mmol/L (132-148) 06/08/18 09:05 Chloride 99.0 mmol/L (98-107) 06/08/18 09:05 Glucose 147 mg/dL (65-105) H 06/08/18 09:05 Lactate 4.6 mmol/L (0.7-2.1) H* 06/08/18 09:05 FiO2 21.0 % 06/08/18 09:05 Crit Value Called To Dr chris singh 06/08/18 09:05 Crit Value Called By 15 06/08/18 09:05 Crit Value Read Back Y 06/08/18 09:05 Blood Gas Notified Time 922 06/08/18 09:05 Sodium 136 mmol/l (132-148) 06/10/18 04:25 Potassium 3.7 MMOL/L (3.6-5.0) 06/10/18 04:25 Chloride 103 mmol/L (98-107) 06/10/18 04:25 Carbon Dioxide 26 mmol/L (22-30) 06/10/18 04:25 Anion Gap 11 (10-20) 06/10/18 04:25 BUN 12 mg/dl (7-17) 06/10/18 04:25 Creatinine 0.4 mg/dl (0.7-1.2) L 06/10/18 04:25 Est GFR ( Amer) > 60 06/10/18 04:25 Est GFR (Non-Af Amer) > 60 06/10/18 04:25 POC Glucose (mg/dL) 144 mg/dL (65-110) H 06/10/18 15:48 Random Glucose 237 mg/dL (65-105) H 06/10/18 04:25 Hemoglobin A1c 8.0 % (4.2-6.5) H 06/10/18 05:00 Lactic Acid 1.0 MMOL/L (0.7-2.1) 06/08/18 20:45 Calcium 9.4 mg/dL (8.4-10.2) 06/10/18 04:25 Magnesium 1.8 MG/DL (1.6-2.3) 06/10/18 04:25 Total Bilirubin 0.5 mg/dl (0.2-1.3) 06/10/18 04:25 AST 20 U/L (14-36) 06/10/18 04:25 ALT 19 U/L (9-52) 06/10/18 04:25 Alkaline Phosphatase 103 U/L (38-126) 06/10/18 04:25 Total Protein 6.3 G/DL (6.3-8.2) 06/10/18 04:25 Albumin 2.8 g/dL (3.5-5.0) L D 06/10/18 04:25 Globulin 3.5 gm/dL (2.2-3.9) 06/10/18 04:25 Albumin/Globulin Ratio 0.8 (1.0-2.1) L 06/10/18 04:25 Venous Blood Potassium 3.9 mmol/L (3.6-5.2) 06/08/18 09:05 Urine Color Yellow (YELLOW) 06/08/18 09:50 Urine Clarity Slighty-cloudy (Clear) 06/08/18 09:50 Urine pH 6.0 (5.0-8.0) 06/08/18 09:50 Ur Specific [place] 1.011 (1.003-1.030) 06/08/18 09:50 Urine Protein 30 mg/dL (NEGATIVE) 06/08/18 09:50 Urine Glucose (UA) 150 mg/dL (Normal) 06/08/18 09:50 Urine Ketones Negative mg/dL (NEGATIVE) 06/08/18 09:50 Urine Blood Negative (NEGATIVE) 06/08/18 09:50 Urine Nitrate Negative (NEGATIVE) 06/08/18 09:50 Urine Bilirubin Negative (NEGATIVE) 06/08/18 09:50 Urine Urobilinogen 0.2-1.0 mg/dL (0.2-1.0) 06/08/18 09:50 Ur Leukocyte Esterase Mod Marta/uL (Negative) 06/08/18 09:50 - Date & Time of H&P Date of H&P: 06/08/18 Time of H&P: 13:40 Discharge Exam - Head Exam Head Exam: NORMAL INSPECTION - Eye Exam Eye Exam: PERRL - ENT Exam ENT Exam: Normal Exam - Neck Exam Neck exam: Normal Inspection - Respiratory Exam Respiratory Exam: Decreased Breath Sounds (at bases) - Cardiovascular Exam Cardiovascular Exam: REGULAR RHYTHM - GI/Abdominal Exam GI & Abdominal Exam: Normal Bowel Sounds, Soft Additional comments: PEG tube - Extremities Exam Extremities exam: normal inspection - Neurological Exam Additional comments: Awake, lethargic, arousable, mumbling sounds, R hemiparisia - Skin Skin Exam: Warm Discharge Plan - Discharge Medications Prescriptions: Ciprofloxacin HCl [Cipro] 500 mg PO Q12 #14 tablet - Follow Up Plan Condition: FAIR Disposition: TRANSF TO SNF Instructions: Seizures, Adult (DC), Dementia (DC) Additional Instructions: discharge pt to [facility] Referrals: Laureano Packer MD [Medical Doctor] - Keith Red MD [Staff Provider] -
--- NOTE | 2018-06-10 18:59 | CARD ---
APPROVED REPORT Date of service: 06/10/2018 EKG Measurement Heart [id number] <Conclusion> Normal sinus rhythm Minimal voltage criteria for LVH, may be normal variant Borderline ECG
[2018-06-10] MEDS ORDERED: levETIRAcetam 100 mg/ml (5ml) Oral Syringe PEG ONE (19:39)
[2018-06-10 20:02] VITALS: BP 142/82; PULSE 76; RESP 18; TEMP 98.1; O2SAT 97
--- NOTE | 2018-06-17 13:50 | PQF ---
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 Documentation of a history of CVA. ? R hemiparesia a sequela of CVA or other explanation or unable to determine The patient's Clinical Indicators include: Documentation of history of CVA. R hemiparesia Query created by: Susu Mace on 06/10/2018 11:30 AM Electronically signed by: Keith Red MD 06/17/2018 1:47 PM
== END 2018-06-10 23:50 | DRG 101 ==
LOC: H.ER 08:51 → H.ERHOLD 12:05 → H.TEL 13:52
PROVIDERS: ADMIT Internal Medicine Pulmonary Disease; ATTEND Internal Medicine Pulmonary Disease
PROC: 3E0234Z Introduction of Serum, Toxoid and Vaccine into Muscle, Percutaneous Approach (ICD-10-PCS; principal; 2018-06-09)
DX: G40.909 Epilepsy, unspecified, not intractable, without status epilepticus (principal); I69.351 Hemiplegia and hemiparesis following cerebral infarction affecting right dominant side; G30.9 Alzheimer's disease, unspecified; F02.80 Dementia in other diseases classified elsewhere, unspecified severity, without behavioral disturbance, psychotic disturbance, mood disturbance, and anxiety; I67.1 Cerebral aneurysm, nonruptured; I10 Essential (primary) hypertension; E11.9 Type 2 diabetes mellitus without complications; J44.9 Chronic obstructive pulmonary disease, unspecified; E78.00 Pure hypercholesterolemia, unspecified; F41.9 Anxiety disorder, unspecified; M19.90 Unspecified osteoarthritis, unspecified site; R26.81 Unsteadiness on feet; Z93.1 Gastrostomy status; Z23 Encounter for immunization

== ENCOUNTER 2018-07-21 10:50 | Emergency (ER) | payer MEDICARE, MEDICAID ==
[2018-07-21 11:15] VITALS: O2SAT 98
--- NOTE | 2018-07-21 12:58 | ED PDOC ---
HPI: Abdomen Time Seen by Provider: 07/21/18 11:26 Chief Complaint (Nursing): GI Problem Chief Complaint (Provider): GI Problem History Per: Patient, Other (Dr. Pichardo) History/Exam Limitations: no limitations Onset/Duration Of Symptoms: Days (x1) Additional Complaint(s): 83 year old female here for peg tube replacement. Provider received a call from Dr. Pichardo that patient's peg tube became dislodged. He does not recommend a workup and will replace peg tube at bedside. Patient has no pain and vitals are within normal limits. PMD: none provided Past Medical History Reviewed: Historical Data, Nursing Documentation, Vital Signs Vital Signs: Last Vital Signs Temp Pulse Resp BP Pulse Ox 98 07/21/18 11:12 - Medical History PMH: Alzheimer's Disease, Anxiety, Arthritis, Bronchitis, COPD, CVA, Dementia, Gall Bladder Disease, HTN, Hypercholesterolemia, TIA Denies: HIV, Chronic Kidney Disease - Surgical History Surgical History: Cholecystectomy - Family History Family History: States: Unknown Family Hx - Home Medications Home Medications: Ambulatory Orders Medication Instructions Recorded Atorvastatin [Lipitor] 40 mg PEG HS 12/30/17 Carvedilol [Coreg] 6.25 mg PEG Q12 12/30/17 Insulin Lispro [humALOG] 6 unit SC ACTID 12/30/17 Clopidogrel [Plavix] 75 mg PEG DAILY tab 01/03/18 Aspirin [Aspirin Chewable] 81 mg PEG QPM 05/26/18 Famotidine [Pepcid] 20 mg PEG HS 05/26/18 Nitroglycerin 0.1 mg/hr [Nitro-Dur 1 patch TD DAILY 05/26/18 0.1 mg/hr Patch] amLODIPine [Norvasc] 5 mg PEG DAILY 05/26/18 levETIRAcetam Solution [Keppra] 650 mg PEG Q12 05/26/18 Albuterol/Ipratropium [Duoneb 3 3 ml IH PRN PRN 06/08/18 mg/0.5 mg (3 ml) UD] Ciprofloxacin HCl [Cipro] 500 mg PO Q12 #14 tablet 06/10/18 - Allergies Allergies/Adverse Reactions: Allergies Allergy/AdvReac Type Severity Reaction Status Date / Time No Known Allergies Allergy Verified 07/21/18 11:12 Review of Systems ROS Statement: Except As Marked, All Systems Reviewed And Found Negative Gastrointestinal: Positive for: Other (peg tube dislodged) Physical Exam - Reviewed Nursing Documentation Reviewed: Yes Vital Signs Reviewed: Yes - Physical Exam Appears: Positive for: No Acute Distress Head Exam: Positive for: ATRAUMATIC, NORMAL INSPECTION, NORMOCEPHALIC Skin: Positive for: Normal Color, Warm, Dry Eye Exam: Positive for: EOMI, Normal appearance, PERRL Cardiovascular/Chest: Positive for: Regular Rate, Rhythm. Negative for: Murmur Respiratory: Positive for: Normal Breath Sounds. Negative for: Respiratory Distress Gastrointestinal/Abdominal: Positive for: Normal Exam, Soft. Negative for: Tenderness Extremity: Positive for: Normal ROM. Negative for: Deformity Neurologic/Psych: Positive for: Alert, Oriented. Negative for: Motor/Sensory Deficits - ECG O2 Sat by Pulse Oximetry: 98 (RA) Pulse Ox Interpretation: Normal Medical Decision Making Medical Decision Makin:42 Dr. Pichardo will see patient in the ED and replaced peg tube at bedside. Patient will return to [facility] 14:20 Peg tube placement confirmed with Dr. Pichardo. Patient is stable for discharge. ------ Scribe Attestation: Documented by Loulou Crandall acting as a scribe for Re Wong MD Provider Scribe Attestation: All medical record entries made by the Scribe were at my direction and personally dictated by me. I have reviewed the chart and agree that the record accurately reflects my personal performance of the history, physical exam, medical decision making, and the department course for this patient. I have also personally directed, reviewed, and agree with the discharge instructions and disposition. Disposition - Clinical Impression Clinical Impression: PEG tube malfunction - Disposition Condition: IMPROVED Additional Instructions: Continue follow up with primary doctor and Dr. Pichardo as previously scheduled. Return to the emergency department if symptoms worsen. Use PEG tube as previously used. Forms: [email or web address] (Hungarian) Print Language: GUYANESE
[2018-07-21 13:09] VITALS: BP 152/81; PULSE 71; RESP 18
== END 2018-07-21 13:10 | disposition home or self-care (01) ==
LOC: H.ER 10:50
DX: K94.23 Gastrostomy malfunction (principal); J44.9 Chronic obstructive pulmonary disease, unspecified; F02.80 Dementia in other diseases classified elsewhere, unspecified severity, without behavioral disturbance, psychotic disturbance, mood disturbance, and anxiety; G30.9 Alzheimer's disease, unspecified; I10 Essential (primary) hypertension; Z79.4 Long term (current) use of insulin; Z86.73 Personal history of transient ischemic attack (TIA), and cerebral infarction without residual deficits

== ENCOUNTER 2018-10-17 15:26 | Inpatient (IN) | payer MEDICARE, MEDICAID ==
--- NOTE | 2018-10-17 16:07 | ED PDOC ---
HPI: Seizure Time Seen by Provider: 10/17/18 15:47 Chief Complaint (Nursing): Seizure History Per: EMS Recent Seizure Activity Began: Unknown Length Of Seizures (Duration): Unknown Quality Of Seizure: Focal Involving: (Left side of face) Additional Complaint(s): [place] [facility] [place] activity, staff noted twitching left side of face. Unknown duration. Pt denies c/o. Past Medical History Vital Signs: Last Vital Signs Temp 97.8 F 10/17/18 15:29 Pulse 74 10/17/18 15:29 Resp 19 10/17/18 15:29 BP 122/96 H 10/17/18 15:29 Pulse Ox 97 10/17/18 15:29 - Medical History PMH: Alzheimer's Disease, Anxiety, Arthritis, Bronchitis, COPD, CVA, Dementia, Gall Bladder Disease, HTN, Hypercholesterolemia, Seizures, TIA Denies: HIV, Chronic Kidney Disease - Surgical History Surgical History: Cholecystectomy - Family History Family History: States: Unknown Family Hx - Home Medications Home Medications: Ambulatory Orders Medication Instructions Recorded Atorvastatin [Lipitor] 40 mg PEG HS 12/30/17 Carvedilol [Coreg] 6.25 mg PEG Q12 12/30/17 Insulin Lispro [humALOG] 6 unit SC ACTID 12/30/17 Clopidogrel [Plavix] 75 mg PEG DAILY tab 01/03/18 Aspirin [Aspirin Chewable] 81 mg PEG QPM 05/26/18 Famotidine [Pepcid] 20 mg PEG HS 05/26/18 Nitroglycerin 0.1 mg/hr [Nitro-Dur 1 patch TD DAILY 05/26/18 0.1 mg/hr Patch] amLODIPine [Norvasc] 5 mg PEG DAILY 05/26/18 levETIRAcetam Solution [Keppra] 650 mg PEG Q12 05/26/18 Albuterol/Ipratropium [Duoneb 3 3 ml IH Q6 PRN 06/08/18 mg/0.5 mg (3 ml) UD] Acetaminophen [Tylenol 160mg/5ml 20 ml PEG Q4 PRN 10/17/18 Oral Soln] Acetaminophen [Tylenol 160mg/5ml 20 ml PEG Q4 PRN 10/17/18 Oral Soln] Magnesium Hydroxide [Milk Of 30 ml PEG HS PRN 10/17/18 Magnesia] - Allergies Allergies/Adverse Reactions: Allergies Allergy/AdvReac Type Severity Reaction Status Date / Time No Known Allergies Allergy Verified 07/21/18 11:12 Review of Systems Review Of Systems: ROS cannot be obtained secondary to pt's inabilty to answer questions. Physical Exam - Reviewed Nursing Documentation Reviewed: Yes Vital Signs Reviewed: Yes - Physical Exam Appears: Positive for: Non-toxic, No Acute Distress Head Exam: Positive for: ATRAUMATIC, NORMAL INSPECTION, NORMOCEPHALIC Skin: Positive for: Normal Color, Warm, DRY Eye Exam: Positive for: EOMI, Normal appearance, PERRL ENT: Positive for: Normal ENT Inspection Neck: Positive for: Normal, Painless ROM Cardiovascular/Chest: Positive for: Regular Rate, Rhythm Respiratory: Positive for: CNT, Normal Breath Sounds Gastrointestinal/Abdominal: Positive for: Normal Exam, Soft Back: Positive for: Normal Inspection Extremity: Positive for: Normal ROM Neurological/Psych: Positive for: Alert, Normal Tone. Negative for: Awake (Sleepy arousable), Motor/Sensory Deficits - Laboratory Results Result Diagrams: 10/17/18 16:10 10/17/18 16:10 - ECG O2 Sat by Pulse Oximetry: 97 Disposition - Clinical Impression Clinical Impression: Seizure disorder - Patient ED Disposition Is Patient to be Admitted: Yes - Disposition Disposition Time: 17:43 Condition: FAIR Forms: [employer] ([place]ymraes) - Pt Status Changed To: Hospital Disposition Of: Observation - POA Present On Arrival: None
[2018-10-17 16:27] LABS: BASO # 0.1 K/uL (0.0-0.2); BASO % 0.6 % (0.0-2.0); EOS # 0.2 K/uL (0.0-0.7); EOS % 2.1 % (0.0-4.0); HEMOGLOBIN 13.6 g/dL (12.0-16.0); LYMPH # 2.2 K/uL (1.0-4.3); LYMPH % 22.5 % (20.0-40.0); MEAN CELL VOLUME 90.5 fl (81.0-99.0); MEAN CORPUSCULAR HEMOGLOBIN 30.3 pg (27.0-31.0); MEAN CORPUSCULAR HGB CONC 33.4 g/dL (33.0-37.0); MEAN PLATELET VOLUME 9.8 fl (7.2-11.7); MONO # 0.8 K/uL (0.0-0.8); MONO % 8.8 % (0.0-10.0); NEUT # 6.3 K/uL (1.8-7.0); NRBC % 0.1 % (0.0-0.0); RBC 4.5 Mil/uL (3.80-5.20); WHITE BLOOD COUNT 9.6 K/uL (4.8-10.8)
[2018-10-17 16:31] LABS: ALB/GLOB RATIO 0.9 (1.0-2.1); ALBUMIN 3.3 g/dL (3.5-5.0); ALT/SGPT 19 U/L (9-52); AST/SGOT 24 U/L (14-36); BLOOD UREA NITROGEN 17 mg/dl (7-17); CALCIUM 10.8 mg/dL (8.4-10.2); GFR NON-AFRICAN AMERICAN > 60
[2018-10-17 16:49] LABS: SQUAMOUS EPITHIAL < 1 /hpf (0-5); URINE BILIRUBIN NEGATIVE (NEGATIVE); URINE BLOOD NEGATIVE (NEGATIVE); URINE CLARITY SLIGHTY-CLOUDY (Clear); URINE COLOR YELLOW (YELLOW); URINE GLUCOSE (UA) NEG (NEGATIVE); URINE LEUKOCYTE ESTERASE NEG Leu/uL (Negative); URINE PROTEIN NEGATIVE (NEGATIVE); URINE UROBILINOGEN 0.2-1.0 mg/dL (0.2-1.0)
--- NOTE | 2018-10-17 17:06 | RAD ---
Date of service: 10/17/2018 HISTORY: cough COMPARISON: Comparison made with prior study 06/08/2018. TECHNIQUE: 1 view obtained. FINDINGS: Note that the examination is limited due to partial obscuration of the left hemithorax by overlying left upper extremity which has not been moved from the field of view. LUNGS: Suspect mild bibasilar atelectasis PLEURA: No significant pleural effusion identified, no pneumothorax apparent. CARDIOVASCULAR: No aortic atherosclerotic calcification present. Cardiomegaly.. No pulmonary vascular congestion. OSSEOUS STRUCTURES: No significant abnormalities. VISUALIZED UPPER ABDOMEN: Normal. OTHER FINDINGS: None. IMPRESSION: Limited study as above. Suspect mild bibasilar atelectasis. Cardiomegaly.
--- NOTE | 2018-10-17 17:59 | CT ---
Date of service: 10/17/2018 PROCEDURE: CT HEAD WITHOUT CONTRAST. HISTORY: Rule out hemorrhage COMPARISON: Comparison made with prior CT scan and CTA brain both dated 06/08/2018. Comparison also made with prior MRI brain 12/31/2017. TECHNIQUE: Axial computed tomography images were obtained through the head/brain without intravenous contrast. Radiation dose: Total exam DLP = 864.69 mGy-cm. This CT exam was performed using one or more of the following dose reduction techniques: Automated exposure control, adjustment of the mA and/or kV according to patient size, and/or use of iterative reconstruction technique. FINDINGS: HEMORRHAGE: No intracranial hemorrhage. No acute parenchymal, subarachnoid nor extra-axial hemorrhage. 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 Note that the possibility of a small hyperacute infarct cannot be excluded on this study. There is ex vacuo dilatation of the left temporal horn, left atrium and left occipital horn as well. Moderate to significant diffuse and confluent chronic periventricular white matter ischemic changes are again seen extending peripherally into the deep and subcortical white matter both cerebral hemispheres. Redemonstrated are a rounded extra-axial calcification in the right frontal region with what appears to represent an additional partially calcified soft tissues extra-axial lesion more anteriorly located. Findings could represent en -plaque meningioma formation with apparent hyperostosis of the overlying inner table the calvarium is well. Moderate to fairly significant central volume loss evidenced by disproportion enlargement of the ventricles compared the sulci VENTRICLES: No obstructive hydrocephalus. CALVARIUM: As above. Calvarium is otherwise intact. PARANASAL SINUSES: There is complete opacification of the right with what appears represent hyperdense inspissated debris and possibly some dystrophic type calcification. Rule out sequela of fungal infection. MASTOID AIR CELLS: Unremarkable as visualized. No inflammatory changes. OTHER FINDINGS: None. IMPRESSION: No acute intracranial hemorrhage. Large chronic left [employer]RAF[employer] territory infarct with encephalomalacia changes involving the left posterior basal ganglia, left posterior temporal lobe, left occipital and left occipito parietal watershed zone. Note that the possibility of a small hyperacute infarct cannot be excluded on this study. There is ex vacuo dilatation of the left temporal horn, left atrium and left occipital horn as well. Moderate to significant diffuse and confluent chronic periventricular white matter ischemic changes are again seen extending peripherally into the deep and subcortical white matter both cerebral hemispheres. Redemonstrated are a rounded extra-axial calcification in the right frontal region with what appears to represent an additional partially calcified soft tissues extra-axial lesion more anteriorly located. Findings could represent en -plaque meningioma formation with apparent hyperostosis of the overlying inner table the calvarium is well. Moderate to fairly significant central volume loss evidenced by disproportion enlargement of the ventricles compared the sulci
[2018-10-17] MEDS ORDERED: levETIRAcetam 1,000 MG in Sodium Chloride 0.9% 100 ML IVPB ONE (23:15)
[2018-10-17] MEDS ORDERED: Sodium Chloride 0.45% 1,000 ML IV SCH (23:30)
[2018-10-18] MEDS ORDERED: Acetaminophen 160 mg/5 ml UD PEG PRN ×2 (01:19)
[2018-10-18] MEDS ORDERED: Albuterol-Ipratrop 3 mg / 0.5 (3 ml) UD IH PRN (01:19)
[2018-10-18] MEDS ORDERED: Magnesium Hydroxide Susp 30 ml UD PEG PRN (01:25)
[2018-10-18] MEDS ORDERED: Acetaminophen 650mg/20.3ml solution UD PEG PRN ×2 (01:47→01:48)
[2018-10-18 06:29] LABS: HEMOGLOBIN 12.2 g/dL (12.0-16.0); MEAN CELL VOLUME 91.4 fl (81.0-99.0); MEAN CORPUSCULAR HEMOGLOBIN 30.3 pg (27.0-31.0); MEAN CORPUSCULAR HGB CONC 33.2 g/dL (33.0-37.0); RBC 4.01 Mil/uL (3.80-5.20); RED CELL DISTRIBUTION WIDTH 14.1 % (11.5-14.5); WHITE BLOOD COUNT 8.1 K/uL (4.8-10.8)
[2018-10-18 06:35] LABS: ALB/GLOB RATIO 0.9 (1.0-2.1); ALT/SGPT 23 U/L (9-52); AST/SGOT 17 U/L (14-36); BLOOD UREA NITROGEN 20 mg/dl (7-17); CALCIUM 10.2 mg/dL (8.4-10.2); GFR NON-AFRICAN AMERICAN > 60; HDL CHOLESTEROL 22 MG/DL (30-70)
[2018-10-18 06:44] LABS: LDL CHOLESTEROL 39 mg/dL (0-129)
[2018-10-18] MEDS: Nitroglycerin 0.1 mg/hr Top Patch TD SCH (10:48)
--- NOTE | 2018-10-18 13:49 | CP.PCM.CON ---
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 Continue keppra at [address] urbano Neurology Past Patient History - Infectious Disease Hx of Infectious Diseases: None - Past Medical History & Family History Past Medical History?: Yes - Past Social History Smoking Status: Never Smoked - CARDIAC Hx Cardiac Disorders: Yes Hx Hypercholesterolemia: Yes Hx Hypertension: Yes - PULMONARY Hx Respiratory Disorders: Yes Hx Bronchitis: Yes Hx Chronic Obstructive Pulmonary Disease (COPD): Yes - NEUROLOGICAL Hx Neurological Disorder: Yes Hx Alzheimer's Disease: Yes HX Cerebrovascular Accident: Yes Hx Dementia: Yes Hx Seizures: Yes Hx Transient Ischemic Attacks (TIA): Yes - HEENT Hx HEENT Problems: No - RENAL Hx Chronic Kidney Disease: No - ENDOCRINE/METABOLIC Hx Endocrine Disorders: Yes Hx Diabetes Mellitus Type 2: Yes - HEMATOLOGICAL/ONCOLOGICAL Hx Blood Disorders: No Hx Human Immunodeficiency Virus (HIV): No - INTEGUMENTARY Hx Dermatological Problems: No - MUSCULOSKELETAL/RHEUMATOLOGICAL Hx Musculoskeletal Disorders: Yes Hx Arthritis: Yes Hx Falls: No Hx Osteoarthritis: Yes - GASTROINTESTINAL Hx Gastrointestinal Disorders: Yes Hx Gall Bladder Disease: Yes - GENITOURINARY/GYNECOLOGICAL Hx Genitourinary Disorders: Yes Hx Incontinence: Yes - PSYCHIATRIC Hx Psychophysiologic Disorder: Yes Hx Anxiety: Yes Hx Substance Use: No - SURGICAL HISTORY Hx Surgeries: Yes Hx Cholecystectomy: Yes Other/Comment: PEG tube insertion - ANESTHESIA Hx Anesthesia: Yes Hx Anesthesia Reactions: No Hx Malignant Hyperthermia: No Meds Allergies/Adverse Reactions: Allergies Allergy/AdvReac Type Severity Reaction Status Date / Time No Known Allergies Allergy Verified 07/21/18 11:12 - Medications Medications: Current Medications Acetaminophen (Tylenol 650mg/20.3ml Solution Ud) 650 mg PEG Q4 PRN PRN Reason: Pain, Mild (1-3) Acetaminophen (Tylenol 650mg/20.3ml Solution Ud) 650 mg PEG Q4 PRN PRN Reason: temp >101.0 Albuterol/Ipratropium (Duoneb 3 Mg/0.5 Mg (3 Ml) Ud) 3 ml IH RQ6 PRN PRN Reason: Shortness of Breath Amlodipine Besylate (Norvasc) 5 mg PEG DAILY [facility] Last Admin: 10/18/18 11:08 Dose: 5 mg Aspirin (Aspirin Chewable) 81 mg PEG QPM [facility] Atorvastatin Calcium (Lipitor) 40 mg PEG HS [facility] Carvedilol (Coreg) 6.25 mg PEG Q12 [facility] Last Admin: 10/18/18 11:07 Dose: 6.25 mg Clopidogrel Bisulfate (Plavix) 75 mg PEG DAILY [facility] Last Admin: 10/18/18 11:07 Dose: 75 mg Famotidine (Pepcid) 20 mg PEG HS [facility] Sodium Chloride (Sodium Chloride 0.45%) 1,000 mls @ 70 mls/hr IV .[id number] [facility] Stop: 10/18/18 23:30 Last Admin: 10/17/18 23:40 Dose: 70 mls/hr Levetiracetam 750 mg/ Sodium (Chloride) 107.5 mls @ 215 mls/hr IVPB Q12 [facility] Last Admin: 10/18/18 10:47 Dose: 215 mls/hr Insulin Human Lispro (Humalog) 0 units SC ACHS [facility]; Protocol Magnesium Hydroxide (Milk Of Magnesia) 30 ml PEG HS PRN PRN Reason: No bowel movement after 2 days Nitroglycerin (Nitro-Dur 0.1 Mg/Hr Patch) 1 patch TD DAILY [facility] Last Admin: 10/18/18 10:48 Dose: 1 patch Results - Vital Signs Recent Vital Signs: Last Vital Signs Temp 98.1 F 10/18/18 12:43 Pulse 85 10/18/18 12:43 Resp 20 10/18/18 12:43 BP 129/53 L 10/18/18 12:43 Pulse Ox 96 10/18/18 12:43 - Labs Result Diagrams: 10/18/18 04:30 10/18/18 04:30 Labs: Laboratory Results - last 24 hr 10/17/18 10/17/18 10/17/18 15:35 16:10 16:10 WBC 9.6 RBC 4.50 Hgb 13.6 Hct 40.7 MCV 90.5 D MCH 30.3 MCHC 33.4 RDW 14.0 Plt Count 248 MPV 9.8 Neut % (Auto) 66.0 Lymph % (Auto) 22.5 Kerr % (Auto) 8.8 Eos % (Auto) 2.1 Baso % (Auto) 0.6 Neut # (Auto) 6.3 Lymph # (Auto) 2.2 Kerr # (Auto) 0.8 Eos # (Auto) 0.2 Baso # (Auto) 0.1 Sodium 136 Potassium 4.3 Chloride 98 Carbon Dioxide 31 H Anion Gap 11 BUN 17 Creatinine 0.4 L Est GFR ( Amer) > 60 Est GFR (Non-Af Amer) > 60 POC Glucose (mg/dL) 113 H Random Glucose 112 H Calcium 10.8 H Total Bilirubin 0.7 AST 24 ALT 19 Alkaline Phosphatase 120 Total Protein 7.1 Albumin 3.3 L Globulin 3.8 Albumin/Globulin Ratio 0.9 L Triglycerides Cholesterol LDL Cholesterol Direct HDL Cholesterol Thyroxine (T4) TSH 3rd Generation Urine Color Urine Clarity Urine pH Ur Specific Peterson Urine Protein Urine Glucose (UA) Urine Ketones Urine Blood Urine Nitrate Urine Bilirubin Urine Urobilinogen Ur Leukocyte Esterase Urine RBC (Auto) Urine Microscopic WBC Ur Squamous Epith Cells 10/17/18 10/18/18 10/18/18 16:20 04:30 04:30 WBC 8.1 RBC 4.01 Hgb 12.2 Hct 36.7 MCV 91.4 MCH 30.3 MCHC 33.2 RDW 14.1 Plt Count 240 MPV Neut % (Auto) Lymph % (Auto) Kerr % (Auto) Eos % (Auto) Baso % (Auto) Neut # (Auto) Lymph # (Auto) Kerr # (Auto) Eos # (Auto) Baso # (Auto) Sodium 137 Potassium 4.2 Chloride 101 Carbon Dioxide 29 Anion Gap 11 BUN 20 H Creatinine 0.5 L Est GFR ( Amer) > 60 Est GFR (Non-Af Amer) > 60 POC Glucose (mg/dL) Random Glucose 149 H Calcium 10.2 Total Bilirubin 0.6 AST 17 ALT 23 Alkaline Phosphatase 99 Total Protein 6.4 Albumin 3.0 L Globulin 3.4 Albumin/Globulin Ratio 0.9 L Triglycerides 108 Cholesterol 69 LDL Cholesterol Direct 39 HDL Cholesterol 22 L Thyroxine (T4) 8.76 TSH 3rd Generation 4.00 Urine Color Yellow Urine Clarity Slighty-cloudy Urine pH 6.0 Ur Specific Peterson 1.016 Urine Protein Negative Urine Glucose (UA) Neg Urine Ketones Negative Urine Blood Negative Urine Nitrate Negative Urine Bilirubin Negative Urine Urobilinogen 0.2-1.0 Ur Leukocyte Esterase Neg Urine RBC (Auto) 1 Urine Microscopic WBC 1 Ur Squamous Epith Cells < 1 10/18/18 10/18/18 05:08 11:20 WBC RBC Hgb Hct MCV MCH MCHC RDW Plt Count MPV Neut % (Auto) Lymph % (Auto) Kerr % (Auto) Eos % (Auto) Baso % (Auto) Neut # (Auto) Lymph # (Auto) Kerr # (Auto) Eos # (Auto) Baso # (Auto) Sodium Potassium Chloride Carbon Dioxide Anion Gap BUN Creatinine Est GFR ( Amer) Est GFR (Non-Af Amer) POC Glucose (mg/dL) 180 H 159 H Random Glucose Calcium Total Bilirubin AST ALT Alkaline Phosphatase Total Protein Albumin Globulin Albumin/Globulin Ratio Triglycerides Cholesterol LDL Cholesterol Direct HDL Cholesterol Thyroxine (T4) TSH 3rd Generation Urine Color Urine Clarity Urine pH Ur Specific Peterson Urine Protein Urine Glucose (UA) Urine Ketones Urine Blood Urine Nitrate Urine Bilirubin Urine Urobilinogen Ur Leukocyte Esterase Urine RBC (Auto) Urine Microscopic WBC Ur Squamous Epith Cells
--- NOTE | 2018-10-18 13:56 | MRI ---
Date of service: 10/18/2018 PROCEDURE: MRI BRAIN WITHOUT CONTRAST HISTORY: seizure COMPARISON: Head CT dated 10/17/2018 and brain MRI 12/31/2017. TECHNIQUE: Multiplanar, multisequence MR images of the brain were obtained without intravenous contrast enhancement. FINDINGS: HEMORRHAGE: None DWI: Chronic hyper intensity at the medial left occipital lobe is appreciated in diffusion-weighted sequences which may reflect artifact or potential small cyst as the finding is certainly not acute. There is no apparent viable parenchyma in this location status post long-standing chronic infarct at the left DATA ENTRY TECHNICIAN distribution dating back to roughly 05/24/2017. Cystic encephalomalacia is identified in this distribution in its entirety. BRAIN PARENCHYMA: Diffuse cerebral atrophy chronic microangiopathy are reiterated as well as ex vacuo expansion of the left lateral ventricle related to left DATA ENTRY TECHNICIAN chronic infarct. Microangiopathy is also seen at affecting brainstem once again. Likely arachnoid cyst is seen lateral to the left cerebellar hemisphere exerting limited mass effect effacing sulci. An empty the sella is identified. Reiterated diffuse cerebral atrophy and chronic microangiopathy. VENTRICLES: No hydrocephalus appreciable. CRANIUM: Unremarkable. ORBITS: Grossly unremarkable. PARANASAL SINUSES/MASTOIDS: Nonacute sinus disease is seen at the right maxillary sinus as well as multiple bilateral ethmoid air cells, right sphenoid sinus and right frontal sinus inferiorly. VASCULAR SYSTEM: Skull base flow voids intact. OTHER FINDINGS: None. IMPRESSION: No definite acute or subacute brain infarction appreciable once again. Chronic left DATA ENTRY TECHNICIAN infarct reiterated as well as age-appropriate age related neuro degenerative changes. Likely arachnoid cyst stable at left posterior fossa laterally.
--- NOTE | 2018-10-18 15:16 | CARD ---
APPROVED REPORT Date of service: 10/17/2018 EKG Measurement Heart [id number] <Conclusion> Normal sinus rhythm Moderate voltage criteria for LVH, may be normal variant Borderline ECG
[2018-10-18] MEDS: Insulin Lispro (humaLOG) 100 Units/ml Inj SC SCH ×3 (16:36→21:33)
--- NOTE | 2018-10-18 17:22 | CP.PCM.HP ---
History of Present Illness - History of Present Illness History of Present Illness: CC: Seizure. 83 y/o F, resident at [facility], with multiple chronic medical conditions including; Alzheimer/Dementia, CVA, HTN, COPD, DMII O/A. Pt was brought to ER [facility] on 10/17/18 to be evaluated for episode of Seizure, associated symptom of focal deficit as twitching movements to her left side of face, witnessed by nurse while in the NH, lasting for about 1 hr. EMS was called and there after, Pt was brought to ED for further evaluation. Worsening symptoms: Weakness, unable to answer questions. Aggravated factor: Walking/exercise. No: Fever, chills, n/v/d, abdominal pain, urinary symptoms (other than incontinence), syncope, fall, sick contact. CXR: Suspected mild bibasilar atelectasis. EKG: Normal sinus rhythm. Head CT: No acute intracranial henorrhage, large chronic left MATCH MARKER territory infarct. Brain MRI: No new acute or subacute brain infarct. Chronic L MATCH MARKER infarct. Present on Admission - Present on Admission Any Indicators Present on Admission: No Review of Systems - Review of Systems Systems not reviewed;Unavailable: Acuity of Condition, Dementia Past Patient History - Infectious Disease Hx of Infectious Diseases: None - Past Medical History & Family History Past Medical History?: Yes Pertinent Family History: Unknown - Past Social History Smoking Status: Never Smoked Alcohol: None Drugs: Denies Home Situation {Lives}: Detention - CARDIAC Hx Cardiac Disorders: Yes Hx Hypercholesterolemia: Yes Hx Hypertension: Yes - PULMONARY Hx Respiratory Disorders: Yes Hx Bronchitis: Yes Hx Chronic Obstructive Pulmonary Disease (COPD): Yes - NEUROLOGICAL Hx Neurological Disorder: Yes Hx Alzheimer's Disease: Yes HX Cerebrovascular Accident: Yes Hx Dementia: Yes Hx Seizures: Yes Hx Transient Ischemic Attacks (TIA): Yes - HEENT Hx HEENT Problems: No - RENAL Hx Chronic Kidney Disease: No - ENDOCRINE/METABOLIC Hx Endocrine Disorders: Yes Hx Diabetes Mellitus Type 2: Yes - HEMATOLOGICAL/ONCOLOGICAL Hx Blood Disorders: No Hx Human Immunodeficiency Virus (HIV): No - INTEGUMENTARY Hx Dermatological Problems: No - MUSCULOSKELETAL/RHEUMATOLOGICAL Hx Musculoskeletal Disorders: Yes Hx Arthritis: Yes Hx Falls: No Hx Osteoarthritis: Yes - GASTROINTESTINAL Hx Gastrointestinal Disorders: Yes Hx Gall Bladder Disease: Yes - GENITOURINARY/GYNECOLOGICAL Hx Genitourinary Disorders: Yes Hx Incontinence: Yes - PSYCHIATRIC Hx Psychophysiologic Disorder: Yes Hx Anxiety: Yes Hx Substance Use: No - SURGICAL HISTORY Hx Surgeries: Yes Hx Cholecystectomy: Yes Other/Comment: PEG tube insertion - ANESTHESIA Hx Anesthesia: Yes Hx Anesthesia Reactions: No Hx Malignant Hyperthermia: No Meds Home Medications: Home Medication List Medication Instructions Recorded Confirmed Type Ergocalciferol [Drisdol 50,000 1 cap PO Q7D cap 10/22/18 Rx Intl Units Cap] Allergies/Adverse Reactions: Allergies Allergy/AdvReac Type Severity Reaction Status Date / Time No Known Allergies Allergy Verified 07/21/18 11:12 Physical Exam - Constitutional Appears: Confused, Chronically Ill - Head Exam Head Exam: NORMAL INSPECTION - Eye Exam Eye Exam: PERRL - ENT Exam ENT Exam: Normal Exam - Neck Exam Neck exam: Positive for: Normal Inspection - Respiratory Exam Respiratory Exam: Decreased Breath Sounds (at bases) - Cardiovascular Exam Cardiovascular Exam: REGULAR RHYTHM, Systolic Murmur (2/6 LSB) - GI/Abdominal Exam GI & Abdominal Exam: Normal Bowel Sounds, Soft Additional comments: Peg tube - Extremities Exam Extremities exam: Positive for: normal inspection - Back Exam Back exam: NORMAL INSPECTION - Neurological Exam Additional comments: Forgetful, confused, R side hemiparesia - Psychiatric Exam Additional comments: Calm - Skin Skin Exam: Warm Results - Vital Signs Recent Vital Signs: Last Vital Signs Temp 98.1 F 10/18/18 16:34 Pulse 75 10/18/18 16:34 Resp 20 10/18/18 16:34 BP 112/53 L 10/18/18 16:34 Pulse Ox 95 10/18/18 16:34 reviewed Kaylyn - Labs Result Diagrams: 10/19/18 04:30 10/19/18 04:30 Labs: Laboratory Results - last 24 hr 10/18/18 10/18/18 10/18/18 04:30 04:30 05:08 WBC 8.1 RBC 4.01 Hgb 12.2 Hct 36.7 MCV 91.4 MCH 30.3 MCHC 33.2 RDW 14.1 Plt Count 240 Sodium 137 Potassium 4.2 Chloride 101 Carbon Dioxide 29 Anion Gap 11 BUN 20 H Creatinine 0.5 L Est GFR ( Amer) > 60 Est GFR (Non-Af Amer) > 60 POC Glucose (mg/dL) 180 H Random Glucose 149 H Calcium 10.2 Total Bilirubin 0.6 AST 17 ALT 23 Alkaline Phosphatase 99 Total Protein 6.4 Albumin 3.0 L Globulin 3.4 Albumin/Globulin Ratio 0.9 L Triglycerides 108 Cholesterol 69 LDL Cholesterol Direct 39 HDL Cholesterol 22 L Thyroxine (T4) 8.76 TSH 3rd Generation 4.00 10/18/18 10/18/18 11:20 15:57 WBC RBC Hgb Hct MCV MCH MCHC RDW Plt Count Sodium Potassium Chloride Carbon Dioxide Anion Gap BUN Creatinine Est GFR ( Amer) Est GFR (Non-Af Amer) POC Glucose (mg/dL) 159 H 214 H Random Glucose Calcium Total Bilirubin AST ALT Alkaline Phosphatase Total Protein Albumin Globulin Albumin/Globulin Ratio Triglycerides Cholesterol LDL Cholesterol Direct HDL Cholesterol Thyroxine (T4) TSH 3rd Generation reviewed J.P. - EKG Data EKG comments: reviewed J.P. - Imaging and Cardiology CT scan - head Status: Report reviewed by me (Kaylyn) MRI - head Status: Report reviewed by me (Kaylyn) Chest x-ray Status: Report reviewed by me (Kaylyn) Assessment & Plan (1) Status epilepticus Status: Acute Priority: High (2) Dementia Status: Chronic Priority: High (3) DMII (diabetes mellitus, type 2) Status: Chronic Priority: High (4) HTN (hypertension) Status: Chronic Priority: High (5) History of CVA (cerebrovascular accident) Status: Chronic Priority: Medium (6) Cerebral arterial aneurysm Status: Chronic Priority: Medium (7) COPD (chronic obstructive pulmonary disease) Status: Chronic Priority: Medium - Assessment and Plan (Free Text) Plan: F/U Blood C-S, U C-S, continue ASA, Coreg, Lipitor, Plavix, Insulin, NTG Patch and rest of Tx. - Date & Time Date: 10/18/18 Time: 14:40
[2018-10-19 06:37] LABS: HEMOGLOBIN 10.6 g/dL (12.0-16.0); MEAN CELL VOLUME 91.4 fl (81.0-99.0); MEAN CORPUSCULAR HEMOGLOBIN 30.3 pg (27.0-31.0); MEAN CORPUSCULAR HGB CONC 33.2 g/dL (33.0-37.0); RBC 3.5 Mil/uL (3.80-5.20); WHITE BLOOD COUNT 9.7 K/uL (4.8-10.8)
[2018-10-19 06:54] LABS: ALB/GLOB RATIO 0.8 (1.0-2.1); ALBUMIN 2.8 g/dL (3.5-5.0); ALT/SGPT 17 U/L (9-52); AST/SGOT 15 U/L (14-36); BLOOD UREA NITROGEN 23 mg/dl (7-17); CALCIUM 9.7 mg/dL (8.4-10.2); GFR NON-AFRICAN AMERICAN > 60
[2018-10-19] MEDS: Insulin Lispro (humaLOG) 100 Units/ml Inj SC SCH ×4 (07:51→21:55)
[2018-10-19] MEDS: Nitroglycerin 0.1 mg/hr Top Patch TD SCH (10:51)
--- NOTE | 2018-10-19 16:52 | CP.PCM.PN ---
Subjective - Date & Time of Evaluation Date of Evaluation: 10/19/18 Time of Evaluation: 11:10 - Subjective Subjective: F/U Status Epileptic Pt calm, no A/D, speech unclear. Objective - Vital Signs/Intake and Output Vital Signs (last 24 hours): Temp Pulse Resp BP Pulse Ox 99.5 F 76 20 126/58 L 94 L 10/19/18 16:06 10/19/18 16:06 10/19/18 16:06 10/19/18 16:06 10/19/18 16:06 - Medications Medications: Current Medications Acetaminophen (Tylenol 650mg/20.3ml Solution Ud) 650 mg PEG Q4 PRN PRN Reason: Pain, Mild (1-3) Acetaminophen (Tylenol 650mg/20.3ml Solution Ud) 650 mg PEG Q4 PRN PRN Reason: temp >101.0 Last Admin: 10/19/18 12:59 Dose: 650 mg Albuterol/Ipratropium (Duoneb 3 Mg/0.5 Mg (3 Ml) Ud) 3 ml IH RQ6 PRN PRN Reason: Shortness of Breath Amlodipine Besylate (Norvasc) 5 mg PEG DAILY [facility] Last Admin: 10/19/18 10:57 Dose: 5 mg Aspirin (Aspirin Chewable) 81 mg PEG QPM [facility] Last Admin: 10/18/18 18:19 Dose: 81 mg Atorvastatin Calcium (Lipitor) 40 mg PEG HS [facility] Last Admin: 10/18/18 21:38 Dose: 40 mg Carvedilol (Coreg) 6.25 mg PEG Q12 [facility] Last Admin: 10/19/18 10:49 Dose: 6.25 mg Clopidogrel Bisulfate (Plavix) 75 mg PEG DAILY [facility] Last Admin: 10/19/18 10:58 Dose: 75 mg Famotidine (Pepcid) 20 mg PEG HS [facility] Last Admin: 10/18/18 21:39 Dose: 20 mg Levetiracetam 750 mg/ Sodium (Chloride) 107.5 mls @ 215 mls/hr IVPB Q12 [facility] Last Admin: 10/19/18 10:55 Dose: 215 mls/hr Insulin Human Lispro (Humalog) 0 units SC ACHS [facility]; Protocol Last Admin: 10/19/18 11:36 Dose: 3 u Magnesium Hydroxide (Milk Of Magnesia) 30 ml PEG HS PRN PRN Reason: No bowel movement after 2 days Nitroglycerin (Nitro-Dur 0.1 Mg/Hr Patch) 1 patch TD DAILY [facility] Last Admin: 10/19/18 10:51 Dose: 1 patch - Labs Labs: 10/19/18 04:30 10/19/18 04:30 - Constitutional Appears: No Acute Distress, Chronically Ill - Head Exam Head Exam: NORMAL INSPECTION - Eye Exam Eye Exam: PERRL - ENT Exam ENT Exam: Normal Exam - Neck Exam Neck Exam: Normal Inspection - Respiratory Exam Respiratory Exam: Decreased Breath Sounds (at bases) - Cardiovascular Exam Cardiovascular Exam: REGULAR RHYTHM, Murmur (systolic 2/6 LSB) - GI/Abdominal Exam GI & Abdominal Exam: Soft, Normal Bowel Sounds Additional comments: Peg tube - Extremities Exam Extremities Exam: Normal Inspection - Back Exam Back Exam: NORMAL INSPECTION - Neurological Exam Neurological Exam: Awake Additional comments: Forgetful, confused, R side hemiparesis - Psychiatric Exam Additional comments: Calm - Skin Skin Exam: Warm Assessment and Plan (1) Status epilepticus Status: Acute (2) Dementia Status: Chronic (3) DMII (diabetes mellitus, type 2) Status: Chronic (4) HTN (hypertension) Status: Chronic (5) History of CVA (cerebrovascular accident) Status: Chronic (6) Cerebral arterial aneurysm Status: Chronic (7) COPD (chronic obstructive pulmonary disease) Status: Chronic - Assessment and Plan (Free Text) Plan: Continue Duoneb, Coreg, Norvasc, ASA. Plavix, Lipitor and rest of Tx.
--- NOTE | 2018-10-20 00:11 | CP.PCM.PN ---
Subjective - Date & Time of Evaluation Date of Evaluation: 10/19/18 Time of Evaluation: 14:00 - Subjective Subjective: MIss Jeong continues to be quite encephalopathic and has not had any further seizures. On exam: PERRL. Patient is sleepy and difficult to arouse, and she withdraws her left arm more than her right. She is not able to follow commands. Gait not tested. Objective - Vital Signs/Intake and Output Vital Signs (last 24 hours): Temp Pulse Resp BP Pulse Ox 99.6 F 78 20 126/62 95 10/19/18 20:36 10/19/18 20:36 10/19/18 20:36 10/19/18 20:36 10/19/18 20:36 Intake and Output: 10/19/18 10/20/18 18:59 06:59 Intake Total 1320 Balance 1320 - Medications Medications: Current Medications Acetaminophen (Tylenol 650mg/20.3ml Solution Ud) 650 mg PEG Q4 PRN PRN Reason: Pain, Mild (1-3) Acetaminophen (Tylenol 650mg/20.3ml Solution Ud) 650 mg PEG Q4 PRN PRN Reason: temp >101.0 Last Admin: 10/19/18 12:59 Dose: 650 mg Albuterol/Ipratropium (Duoneb 3 Mg/0.5 Mg (3 Ml) Ud) 3 ml IH RQ6 PRN PRN Reason: Shortness of Breath Amlodipine Besylate (Norvasc) 5 mg PEG DAILY [facility] Last Admin: 10/19/18 10:57 Dose: 5 mg Aspirin (Aspirin Chewable) 81 mg PEG QPM [facility] Last Admin: 10/19/18 17:32 Dose: 81 mg Atorvastatin Calcium (Lipitor) 40 mg PEG HS [facility] Last Admin: 10/19/18 23:19 Dose: Not Given Carvedilol (Coreg) 6.25 mg PEG Q12 [facility] Last Admin: 10/19/18 23:18 Dose: Not Given Clopidogrel Bisulfate (Plavix) 75 mg PEG DAILY [facility] Last Admin: 10/19/18 10:58 Dose: 75 mg Famotidine (Pepcid) 20 mg PEG HS [facility] Last Admin: 10/19/18 23:19 Dose: Not Given Levetiracetam 750 mg/ Sodium (Chloride) 107.5 mls @ 215 mls/hr IVPB Q12 [facility] Last Admin: 10/19/18 21:50 Dose: 215 mls/hr Insulin Human Lispro (Humalog) 0 units SC ACHS [facility]; Protocol Last Admin: 10/19/18 21:55 Dose: Not Given Magnesium Hydroxide (Milk Of Magnesia) 30 ml PEG HS PRN PRN Reason: No bowel movement after 2 days Nitroglycerin (Nitro-Dur 0.1 Mg/Hr Patch) 1 patch TD DAILY [facility] Last Admin: 10/19/18 10:51 Dose: 1 patch - Labs Labs: 10/19/18 04:30 10/19/18 04:30 Assessment and Plan - Assessment and Plan (Free Text) Assessment: 83 yr old woman with multilple medical problems who is now very encephalopathic an Plan: Miss Jeong is a woman who has a history of old strokes, and 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 I am concerned she may have had a new stroke, and will order MRI Brain without contrast. EEG is pending. Dr. Borges Neurology
[2018-10-20] MEDS ORDERED: Sodium Chloride 0.9% 1,000 ML IV SCH (06:30)
--- NOTE | 2018-10-20 08:25 | CON ---
DATE: 10/18/2018 NEUROLOGY CONSULTATION NEUROLOGY CONSULT CALLED BY: Keith Red MD HISTORY OF PRESENT ILLNESS: Ms. Jeong is a woman, who is well known to our service and has been admitted here many times. She has a past medical history of a left PATTERN MOLDER stroke and resulting epilepsy. She has gone into status epilepticus in the past. She was first diagnosed with a stroke in 05/2007. She presented with a new onset seizure, that was when she was at the [facility]. She came to the ER and she did well. We loaded her with 1000 mg of IV Keppra, repeated her MRI of the brain, which was normal, did not show any stroke and she is now stable, back to her baseline. REVIEW OF SYSTEMS: Not obtainable due to the patient's mental status. PHYSICAL EXAMINATION: NEUROLOGIC: Pupils are 3 mm reactive to light. There are corneals or gag. The patient withdraws her left arm minimally to stimuli. There is no nuchal rigidity. Reflexes are +1 in upper and lower limb bilaterally. There is no facial asymmetry. LABORATORY DATA: Her labs are as follows: Normal, there is no white count. Chemistry showed BUN and creatinine 20 and 0.5. glucose of 169. Triglycerides 108, HDL 22. Thyroid is normal. Urine is normal as well. CAT scan of the head was done and showed an old left PATTERN MOLDER stroke. MRI of the brain confirmed the same. MEDICATIONS: She is currently on acetaminophen, albuterol, amlodipine, aspirin, Lipitor, carvedilol, Plavix, , and Keppra. IMPRESSION: An 83-year-old woman, who had breakthrough seizure and has a history of status epilepticus. Currently, she is back to her baseline. PLAN: Continue on 750 mg twice a day of Keppra. From neurological point of view, the patient is stable to be discharged. Await final report of the MRI. Thank you for this interesting consultation. Ashley Borges MD
[2018-10-20] MEDS: Nitroglycerin 0.1 mg/hr Top Patch TD SCH (09:49)
[2018-10-20] MEDS: Insulin Lispro (humaLOG) 100 Units/ml Inj SC SCH ×4 (09:52→21:36)
--- NOTE | 2018-10-20 10:43 | CP.PCM.PN ---
Subjective - Date & Time of Evaluation Date of Evaluation: 10/20/18 Time of Evaluation: 10:40 - Subjective Subjective: Neuro Follow-Up Note: Mrs. Jeong was evaluated this morning. No family present at bedside. Pt asleep when I entered the room but easily arousable to light touch and voice. She remains confused but calm; ? baseline dementia. She is able to follow some simple commands. C/O generalized leg pain. ROS is limited 2/2 pt's confused, though she denies h/a, dizziness, visual changes, chest pain, sob, abd pain. Objective - Vital Signs/Intake and Output Vital Signs (last 24 hours): Temp Pulse Resp BP Pulse Ox 98.8 F 71 18 144/74 93 L 10/20/18 07:55 10/20/18 09:49 10/20/18 07:55 10/20/18 09:49 10/20/18 07:55 - Medications Medications: Current Medications Acetaminophen (Tylenol 650mg/20.3ml Solution Ud) 650 mg PEG Q4 PRN PRN Reason: Pain, Mild (1-3) Acetaminophen (Tylenol 650mg/20.3ml Solution Ud) 650 mg PEG Q4 PRN PRN Reason: temp >101.0 Last Admin: 10/19/18 12:59 Dose: 650 mg Albuterol/Ipratropium (Duoneb 3 Mg/0.5 Mg (3 Ml) Ud) 3 ml IH RQ6 PRN PRN Reason: Shortness of Breath Amlodipine Besylate (Norvasc) 5 mg PEG DAILY [facility] Last Admin: 10/20/18 09:53 Dose: 5 mg Aspirin (Aspirin Chewable) 81 mg PEG QPM [facility] Last Admin: 10/19/18 17:32 Dose: 81 mg Atorvastatin Calcium (Lipitor) 40 mg PEG HS [facility] Last Admin: 10/19/18 23:19 Dose: Not Given Carvedilol (Coreg) 6.25 mg PEG Q12 [facility] Last Admin: 10/20/18 09:51 Dose: 6.25 mg Clopidogrel Bisulfate (Plavix) 75 mg PEG DAILY [facility] Last Admin: 10/19/18 10:58 Dose: 75 mg Famotidine (Pepcid) 20 mg PEG HS [facility] Last Admin: 10/19/18 23:19 Dose: Not Given Levetiracetam 750 mg/ Sodium (Chloride) 107.5 mls @ 215 mls/hr IVPB Q12 [facility] Last Admin: 10/20/18 09:49 Dose: 215 mls/hr Insulin Human Lispro (Humalog) 0 units SC ACHS [facility]; Protocol Last Admin: 10/20/18 09:52 Dose: 2 u Magnesium Hydroxide (Milk Of Magnesia) 30 ml PEG HS PRN PRN Reason: No bowel movement after 2 days Nitroglycerin (Nitro-Dur 0.1 Mg/Hr Patch) 1 patch TD DAILY [facility] Last Admin: 10/20/18 09:49 Dose: 1 patch - Labs Labs: 10/19/18 04:30 10/19/18 04:30 - Constitutional Appears: Confused - Head Exam Head Exam: ATRAUMATIC, NORMAL INSPECTION, NORMOCEPHALIC - Eye Exam Eye Exam: EOMI, Normal appearance Pupil Exam: NORMAL ACCOMODATION, PERRL - ENT Exam ENT Exam: Mucous Membranes Moist - Neck Exam Neck Exam: Full ROM, Normal Inspection - Respiratory Exam Respiratory Exam: NORMAL BREATHING PATTERN - Extremities Exam Extremities Exam: absent: Calf Tenderness, Full ROM, Pedal Edema Additional comments: Pt has residual right sided weakness from a previous stroke. RUE distal strength/paint roller covers supervisor 2/5, cannot raise RUE off bed but has tone. RLE no movement but can slightly wiggle toes and + weakened plantar flexion. LUE distal strength/paint roller covers supervisor 3-4/5, proximal strength 3-4/5. LLE 2/5; plantar flexion approx 3/5. - Neurological Exam Neurological Exam: Altered, Reflexes Normal. absent: Oriented x3 Additional comments: Easily arousable to light touch and voice. Disoriented x3; ? baseline dementia. Pt has residual right sided weakness from a previous stroke. RUE distal strength/paint roller covers supervisor 2/5, cannot raise RUE off bed but has tone. RLE no movement but can slightly wiggle toes and + weakened plantar flexion. LUE distal strength/paint roller covers supervisor 3-4/5, proximal strength 3-4/5. LLE 2/5; plantar flexion approx 3/5. No facial tremors or twitch noted, nor to extremities. Toes down going b/l. - Psychiatric Exam Additional comments: confused, able to follow some commands; ? baseline dementia - Skin Skin Exam: Dry, Intact, Normal Color Assessment and Plan (1) Seizure disorder Assessment & Plan: Imaging reviewed: -MRI Brain (10/18/18): No definite acute or subacute brain infarction appreciable once again. Chronic left [employer]PER[employer] HELPER infarct reiterated as well as age-appropriate age related neuro degenerative changes. Likely arachnoid cyst stable at left posterior fossa laterally. ADDENDUM: Calcified meningioma at the right frontal vertex measuring 1.4 x 1.3 x 1.2 cm is identified but inverting the not included in the original body of report. -CT Head (10/17/18): No acute intracranial hemorrhage. Large chronic left [employer] HELPER territory infarct with encephalomalacia changes involving the left posterior basal ganglia, left posterior temporal lobe, left occipital and left occipito parietal watershed zone. Note that the possibility of a small hyperacute infarct cannot be excluded on this study. There is ex vacuo dilatation of the left temporal horn, left atrium and left occipital horn as well. Moderate to significant diffuse and confluent chronic periventricular white matter ischemic changes are again seen extending peripherally into the deep and subcortical white matter both cerebral hemispheres. Redemonstrated are a rounded extra-axial calcification in the right frontal region with what appears to represent an additional partially calcified soft tissues extra-axial lesion more anteriorly located. Findings could represent en -plaque meningioma formation with apparent hyperostosis of the overlying inner table the calvarium is well. Moderate to fairly significant central volume loss evidenced by disproportion enlargement of the ventricles compared the sulci. -Bedside EEG ordered--will f/u with results. -Continue Keppra 750 mg IV Q12. -Keppra level ordered over the weekend; result pending. Please note, this is a send-out lab and takes several days to be resulted. -Notify neuro team of any seizure activity or changes in pt's condition. Status: Acute (2) Encephalopathy Assessment & Plan: Imaging reviewed: -MRI Brain (10/18/18): No definite acute or subacute brain infarction appreciable once again. Chronic left [employer]PER infarct reiterated as well as age-appropriate age related neuro degenerative changes. Likely arachnoid cyst stable at left posterior fossa laterally. ADDENDUM: Calcified meningioma at the right frontal vertex measuring 1.4 x 1.3 x 1.2 cm is identified but inverting the not included in the original body of report. -CT Head (10/17/18): No acute intracranial hemorrhage. Large chronic left [employer]PER territory infarct with encephalomalacia changes involving the left posterior basal ganglia, left posterior temporal lobe, left occipital and left occipito parietal watershed zone. Note that the possibility of a small hyperacute infarct cannot be excluded on this study. There is ex vacuo dilatation of the left temporal horn, left atrium and left occipital horn as well. Moderate to significant diffuse and confluent chronic periventricular white matter ischemic changes are again seen extending peripherally into the deep and subcortical wh ite matter both cerebral hemispheres. Redemonstrated are a rounded extra-axial calcification in the right frontal region with what appears to represent an additional partially calcified soft tissues extra-axial lesion more anteriorly located. Findings could represent en -plaque meningioma formation with apparent hyperostosis of the overlying inner table the calvarium is well. Moderate to fairly significant central volume loss evidenced by disproportion enlargement of the ventricles compared the sulci. -May be 2/2 pt's dementia. -Continue current treatment of underlying issues and supportive care. -Notify neuro team of any seizure activity or changes in pt's condition. Yue Cardona, COURTNEY, [employer]IC D/w Dr. Borges Status: Acute
--- NOTE | 2018-10-20 16:25 | CP.PCM.PN ---
Subjective - Date & Time of Evaluation Date of Evaluation: 10/20/18 Time of Evaluation: 09:40 - Subjective Subjective: F/U Status Epileptics No seizure activity noted, calm, no A/D. Objective - Vital Signs/Intake and Output Vital Signs (last 24 hours): Temp Pulse Resp BP Pulse Ox 98.7 F 76 20 172/74 H 96 10/20/18 16:20 10/20/18 16:20 10/20/18 16:20 10/20/18 16:20 10/20/18 16:20 - Medications Medications: Current Medications Acetaminophen (Tylenol 650mg/20.3ml Solution Ud) 650 mg PEG Q4 PRN PRN Reason: Pain, Mild (1-3) Acetaminophen (Tylenol 650mg/20.3ml Solution Ud) 650 mg PEG Q4 PRN PRN Reason: temp >101.0 Last Admin: 10/19/18 12:59 Dose: 650 mg Albuterol/Ipratropium (Duoneb 3 Mg/0.5 Mg (3 Ml) Ud) 3 ml IH RQ6 PRN PRN Reason: Shortness of Breath Amlodipine Besylate (Norvasc) 5 mg PEG DAILY [facility] Last Admin: 10/20/18 09:53 Dose: 5 mg Aspirin (Aspirin Chewable) 81 mg PEG QPM [facility] Last Admin: 10/19/18 17:32 Dose: 81 mg Atorvastatin Calcium (Lipitor) 40 mg PEG HS [facility] Last Admin: 10/19/18 23:19 Dose: Not Given Carvedilol (Coreg) 6.25 mg PEG Q12 [facility] Last Admin: 10/20/18 09:51 Dose: 6.25 mg Clopidogrel Bisulfate (Plavix) 75 mg PEG DAILY [facility] Last Admin: 10/19/18 10:58 Dose: 75 mg Famotidine (Pepcid) 20 mg PEG HS [facility] Last Admin: 10/19/18 23:19 Dose: Not Given Levetiracetam 750 mg/ Sodium (Chloride) 107.5 mls @ 215 mls/hr IVPB Q12 [facility] Last Admin: 10/20/18 09:49 Dose: 215 mls/hr Insulin Human Lispro (Humalog) 0 units SC ACHS [facility]; Protocol Last Admin: 10/20/18 09:52 Dose: 2 u Magnesium Hydroxide (Milk Of Magnesia) 30 ml PEG HS PRN PRN Reason: No bowel movement after 2 days Nitroglycerin (Nitro-Dur 0.1 Mg/Hr Patch) 1 patch TD DAILY [facility] Last Admin: 10/20/18 09:49 Dose: 1 patch - Labs Labs: 10/19/18 04:30 10/19/18 04:30 - Constitutional Appears: No Acute Distress, Confused, Chronically Ill - Head Exam Head Exam: NORMAL INSPECTION - Eye Exam Eye Exam: PERRL - ENT Exam ENT Exam: Normal Exam - Neck Exam Neck Exam: Normal Inspection - Respiratory Exam Respiratory Exam: Decreased Breath Sounds (at bases) - Cardiovascular Exam Cardiovascular Exam: REGULAR RHYTHM, Murmur (systolic 2/6 LSB) - GI/Abdominal Exam GI & Abdominal Exam: Soft, Normal Bowel Sounds Additional comments: Peg tube - Extremities Exam Extremities Exam: Normal Inspection - Back Exam Back Exam: NORMAL INSPECTION - Neurological Exam Neurological Exam: Awake Additional comments: Forgetful, confused, R side hemiparesia - Psychiatric Exam Additional comments: Calm - Skin Skin Exam: Warm Assessment and Plan (1) Status epilepticus Status: Acute (2) Dementia Status: Chronic (3) DMII (diabetes mellitus, type 2) Status: Chronic (4) HTN (hypertension) Status: Chronic (5) History of CVA (cerebrovascular accident) Status: Chronic (6) Cerebral arterial aneurysm Status: Chronic (7) COPD (chronic obstructive pulmonary disease) Status: Chronic - Assessment and Plan (Free Text) Plan: Continue Duoneb, Humalog, Lipitor, Plavix, Levetiracetam and rest of Tx.
[2018-10-21] MEDS: Insulin Lispro (humaLOG) 100 Units/ml Inj SC SCH ×4 (08:05→21:49)
--- NOTE | 2018-10-21 09:44 | PCM.EEG ---
Electroencephalogram Report - Electroencephalogram Report Procedure Date: 10/20/18 Interpretation: This is a 16-channel EEG, 1-channel EKG performed with the patient awake A moderate amount of muscle and movement artifact activity was seen throughout the recording. With the patient awake, theta activity at 6-7 cps was seen in the posterior regions. Theta amplitude ranged between 30-70 mcv. Beta activity was seen in the frontal central region ranging between 18-25 Hz and amplitude ranged between 10-30 mcv. Intermittent slowing was seen in the left temporal region. There was no epileptiform activity seen. IMPRESSION: Abnormal EEG due to the presence of: 1) Diffuse slowing of the background 2) Intermittent slowing in the left temporal region CLINICAL CORRELATION: These findings support the diagnosis of: 1) Mild diffuse encephalopathy 2) Left temporal lobe dysfunction Impression:
[2018-10-21] MEDS: Nitroglycerin 0.1 mg/hr Top Patch TD SCH (10:59)
[2018-10-21] MEDS ORDERED: Iohexol 240 (50 ml) PO ONE ×2 (11:45)
--- NOTE | 2018-10-21 11:59 | CP.PCM.PN ---
Subjective - Date & Time of Evaluation Date of Evaluation: 10/21/18 Time of Evaluation: 11:58 - Subjective Subjective: Neuro Follow-Up Note: Mrs. Jeong was evaluated this morning. No family present at bedside. Today the pt is more alert and talkative compared to yesterday. She still has periods of confusion; baseline dementia, though she is pleasant and calm, answers all questions. She is able to follow some simple commands. Today she offers no complaints. Currently pt denies h/a, dizziness, visual changes, chest pain, palpitations, sob, cough, abd pain, n/v/d. Objective - Vital Signs/Intake and Output Vital Signs (last 24 hours): Temp Pulse Resp BP Pulse Ox 98.8 F 88 20 164/68 H 90 L 10/21/18 07:42 10/21/18 10:59 10/21/18 07:42 10/21/18 10:59 10/21/18 07:42 - Medications Medications: Current Medications Acetaminophen (Tylenol 650mg/20.3ml Solution Ud) 650 mg PEG Q4 PRN PRN Reason: Pain, Mild (1-3) Acetaminophen (Tylenol 650mg/20.3ml Solution Ud) 650 mg PEG Q4 PRN PRN Reason: temp >101.0 Last Admin: 10/19/18 12:59 Dose: 650 mg Albuterol/Ipratropium (Duoneb 3 Mg/0.5 Mg (3 Ml) Ud) 3 ml IH RQ6 PRN PRN Reason: Shortness of Breath Amlodipine Besylate (Norvasc) 5 mg PEG DAILY [facility] Last Admin: 10/20/18 09:53 Dose: 5 mg Aspirin (Aspirin Chewable) 81 mg PEG QPM [facility] Last Admin: 10/20/18 17:05 Dose: 81 mg Atorvastatin Calcium (Lipitor) 40 mg PEG HS [facility] Last Admin: 10/20/18 21:34 Dose: 40 mg Carvedilol (Coreg) 6.25 mg PEG Q12 [facility] Last Admin: 10/20/18 21:34 Dose: 6.25 mg Clopidogrel Bisulfate (Plavix) 75 mg PEG DAILY [facility] Last Admin: 10/20/18 09:08 Dose: 75 mg Famotidine (Pepcid) 20 mg PEG HS [facility] Last Admin: 10/20/18 21:34 Dose: 20 mg Levetiracetam 750 mg/ Sodium (Chloride) 107.5 mls @ 215 mls/hr IVPB Q12 [facility] Last Admin: 10/21/18 10:59 Dose: 215 mls/hr Insulin Human Lispro (Humalog) 0 units SC ACHS [facility]; Protocol Last Admin: 10/21/18 11:50 Dose: Not Given Magnesium Hydroxide (Milk Of Magnesia) 30 ml PEG HS PRN PRN Reason: No bowel movement after 2 days Nitroglycerin (Nitro-Dur 0.1 Mg/Hr Patch) 1 patch TD DAILY [facility] Last Admin: 10/21/18 10:59 Dose: 1 patch - Labs Labs: 10/19/18 04:30 10/19/18 04:30 - Constitutional Appears: Non-toxic, No Acute Distress, Confused (baseline dementia) - Head Exam Head Exam: ATRAUMATIC, NORMAL INSPECTION, NORMOCEPHALIC - Eye Exam Eye Exam: EOMI, Normal appearance, PERRL Pupil Exam: NORMAL ACCOMODATION, PERRL - ENT Exam ENT Exam: Mucous Membranes Moist - Neck Exam Neck Exam: Full ROM - Respiratory Exam Respiratory Exam: NORMAL BREATHING PATTERN - GI/Abdominal Exam Additional comments: peg - Extremities Exam Extremities Exam: absent: Calf Tenderness, Full ROM, Pedal Edema Additional comments: Pt has residual right sided weakness from a previous stroke. RUE distal strength/profile stitching machine operator 2/5, today can move RUE along the bed (2/5). Today pt can move RLE along bed (2/5), + weakened plantar flexion. LUE distal strength/profile stitching machine operator 3-4/5, proximal strength 3-4/5. LLE 2/5; plantar flexion approx 3/5. - Neurological Exam Neurological Exam: Alert, Altered (baseline dementia), Awake, CN II-XII Intact. absent: Oriented x3 Additional comments: Awake, talkative. Disoriented x3; has baseline dementia. Pt has residual right sided weakness from a previous stroke. RUE distal strength/profile stitching machine operator 2/5, today can move RUE along the bed (2/5). Today pt can move RLE along bed (2/5), + weakened plantar flexion. LUE distal strength/profile stitching machine operator 3-4/5, proximal strength 3-4/5. LLE 2/5; plantar flexion approx 3/5. No facial tremors or twitch noted, nor to extremities. Toes down going b/l. - Psychiatric Exam Psychiatric exam: Normal Mood - Skin Skin Exam: Normal Color Assessment and Plan (1) Seizure disorder Assessment & Plan: Imaging reviewed: -EEG (10/20/18): IMPRESSION: Abnormal EEG due to the presence of: 1) Diffuse slowing of the background 2) Intermittent slowing in the left temporal region CLINICAL CORRELATION: These findings support the diagnosis of: 1) Mild diffuse encephalopathy 2) Left temporal lobe dysfunction -MRI Brain (10/18/18): No definite acute or subacute brain infarction appreciable once again. Chronic left MANAGER INVENTORY MANAGEMENT infarct reiterated as well as age-appropriate age related neuro degenerative changes. Likely arachnoid cyst stable at left posterior fossa laterally. ADDENDUM: Calcified meningioma at the right frontal vertex measuring 1.4 x 1.3 x 1.2 cm is identified but inverting the not included in the original body of report. -CT Head (10/17/18): No acute intracranial hemorrhage. Large chronic left MANAGER INVENTORY MANAGEMENT territory infarct with encephalomalacia changes involving the left posterior basal ganglia, left posterior temporal lobe, left occipital and left occipito parietal watershed zone. Note that the possibility of a small hyperacute infarct cannot be excluded on this study. There is ex vacuo dilatation of the left temporal horn, left atrium and left occipital horn as well. Moderate to significant diffuse and confluent chronic periventricular white matter ischemic changes are again seen extending peripherally into the deep and subcortical whit e matter both cerebral hemispheres. Redemonstrated are a rounded extra-axial calcification in the right frontal region with what appears to represent an additional partially calcified soft tissues extra-axial lesion more anteriorly located. Findings could represent en -plaque meningioma formation with apparent hyperostosis of the overlying inner table the calvarium is well. Moderate to fairly significant central volume loss evidenced by disproportion enlargement of the ventricles compared the sulci. -Continue Keppra 750 mg IV Q12. Once PEG can be used for medications, may change to Keppra 750 mg PEG Q12 and continue this at the usp. -Keppra level ordered over the weekend; result pending. Please note, this is a send-out lab and takes several days to be resulted. -Notify neuro team of any seizure activity or changes in pt's condition. Status: Acute (2) Encephalopathy Assessment & Plan: Imaging reviewed: EEG (10/20/18): IMPRESSION: Abnormal EEG due to the presence of: 1) Diffuse slowing of the background 2) Intermittent slowing in the left temporal region CLINICAL CORRELATION: These findings support the diagnosis of: 1) Mild diffuse encephalopathy 2) Left temporal lobe dysfunction -MRI Brain (10/18/18): No definite acute or subacute brain infarction appreciable once again. Chronic left MANAGER INVENTORY MANAGEMENT infarct reiterated as well as age-appropriate age related neuro degenerative changes. Likely arachnoid cyst stable at left posterior fossa laterally. ADDENDUM: Calcified meningioma at the right frontal vertex measuring 1.4 x 1.3 x 1.2 cm is identified but inverting the not included in the original body of report. -CT Head (10/17/18): No acute intracranial hemorrhage. Large chronic left MANAGER INVENTORY MANAGEMENT territory infarct with encephalomalacia changes involving the left posterior basal ganglia, left posterior temporal lobe, left occipital and left occipito parietal watershed zone. Note that the possibility of a small hyperacute infarct cannot be excluded on this study. There is ex vacuo dilatation of the left te mporal horn, left atrium and left occipital horn as well. Moderate to significant diffuse and confluent chronic periventricular white matter ischemic changes are again seen extending peripherally into the deep and subcortical white matter both cerebral hemispheres. Redemonstrated are a rounded extra- axial calcification in the right frontal region with what appears to represent an additional partially calcified soft tissues extra-axial lesion more anteriorly located. Findings could represent en -plaque meningioma formation with apparent hyperostosis of the overlying inner table the calvarium is well. Moderate to fairly significant central volume loss evidenced by disproportion enlargement of the ventricles compared the sulci. -May be 2/2 pt's dementia. -Continue current treatment of underlying issues and supportive care. -Notify neuro team of any seizure activity or changes in pt's condition. No further recommendations. Please reconsult prn. Thank you for this consultation. Yue Cardona, COURTNEY, CUTTING MACHINE TENDER D/w Dr. Borges Status: Acute
--- NOTE | 2018-10-21 14:09 | RAD ---
Date of service: 10/21/2018 HISTORY: with contrast, evaluation new peg placement COMPARISON: None available. TECHNIQUE: 1 view obtained. FINDINGS: BOWEL: A feeding tube is identified placed replacing the prior tubing at the region of the epigastric space in the preliminary radiograph with surgical clips again seen the right upper quadrant abdomen. Nonobstructive bowel gas pattern evident. Although mild rectal fecal impaction is recurrence. Following administration of iodinated contrast material through the nasogastric tube four by the nursing staff of the patient's sabillon, the stomach is opacified in part with oral contrast material is seen extending into the proximal duodenum. No extravasation of oral contrast material is identified. BONES: Normal. OTHER FINDINGS: None. IMPRESSION: Adequate gastric feeding tube deployment as discussed above. Nonobstructive bowel gas pattern. Mild rectal fecal impaction identified.
--- NOTE | 2018-10-21 16:59 | CP.PCM.PN ---
Subjective - Date & Time of Evaluation Date of Evaluation: 10/21/18 Time of Evaluation: 10:20 - Subjective Subjective: F/U Status Epileptic Pt with open eyes, non verbal. Peg tube changed by GI Objective - Vital Signs/Intake and Output Vital Signs (last 24 hours): Temp Pulse Resp BP Pulse Ox 99.3 F 72 20 128/69 95 10/21/18 16:34 10/21/18 16:34 10/21/18 16:34 10/21/18 16:34 10/21/18 16:34 - Medications Medications: Current Medications Acetaminophen (Tylenol 650mg/20.3ml Solution Ud) 650 mg PEG Q4 PRN PRN Reason: Pain, Mild (1-3) Acetaminophen (Tylenol 650mg/20.3ml Solution Ud) 650 mg PEG Q4 PRN PRN Reason: temp >101.0 Last Admin: 10/19/18 12:59 Dose: 650 mg Albuterol/Ipratropium (Duoneb 3 Mg/0.5 Mg (3 Ml) Ud) 3 ml IH RQ6 PRN PRN Reason: Shortness of Breath Amlodipine Besylate (Norvasc) 5 mg PEG DAILY [facility] Last Admin: 10/20/18 09:53 Dose: 5 mg Aspirin (Aspirin Chewable) 81 mg PEG QPM [facility] Last Admin: 10/20/18 17:05 Dose: 81 mg Atorvastatin Calcium (Lipitor) 40 mg PEG HS [facility] Last Admin: 10/20/18 21:34 Dose: 40 mg Carvedilol (Coreg) 6.25 mg PEG Q12 [facility] Last Admin: 10/20/18 21:34 Dose: 6.25 mg Clopidogrel Bisulfate (Plavix) 75 mg PEG DAILY [facility] Last Admin: 10/20/18 09:08 Dose: 75 mg Famotidine (Pepcid) 20 mg PEG HS [facility] Last Admin: 10/20/18 21:34 Dose: 20 mg Levetiracetam 750 mg/ Sodium (Chloride) 107.5 mls @ 215 mls/hr IVPB Q12 [facility] Last Admin: 10/21/18 10:59 Dose: 215 mls/hr Insulin Human Lispro (Humalog) 0 units SC ACHS [facility]; Protocol Last Admin: 10/21/18 11:50 Dose: Not Given Magnesium Hydroxide (Milk Of Magnesia) 30 ml PEG HS PRN PRN Reason: No bowel movement after 2 days Nitroglycerin (Nitro-Dur 0.1 Mg/Hr Patch) 1 patch TD DAILY [facility] Last Admin: 10/21/18 10:59 Dose: 1 patch - Labs Labs: 10/19/18 04:30 10/19/18 04:30 - Constitutional Appears: No Acute Distress, Chronically Ill - Head Exam Head Exam: NORMAL INSPECTION - Eye Exam Eye Exam: PERRL - ENT Exam ENT Exam: Normal Exam - Neck Exam Neck Exam: Normal Inspection - Respiratory Exam Respiratory Exam: Decreased Breath Sounds, NORMAL BREATHING PATTERN (bases) - Cardiovascular Exam Cardiovascular Exam: REGULAR RHYTHM, Murmur (systolic 2/6 LSB) - GI/Abdominal Exam GI & Abdominal Exam: Soft, Normal Bowel Sounds Additional comments: Peg tube - Extremities Exam Extremities Exam: Normal Inspection - Back Exam Back Exam: NORMAL INSPECTION - Neurological Exam Neurological Exam: Awake Additional comments: Forgetful, R side hemiparesia. - Psychiatric Exam Additional comments: Calm - Skin Skin Exam: Warm Assessment and Plan (1) Status epilepticus Status: Acute (2) Dementia Status: Chronic (3) DMII (diabetes mellitus, type 2) Status: Chronic (4) HTN (hypertension) Status: Chronic (5) History of CVA (cerebrovascular accident) Status: Chronic (6) Cerebral arterial aneurysm Status: Chronic - Assessment and Plan (Free Text) Plan: Continue Coreg, Norvasc, Nitro-Dur Path Insulin, Duoneb and rest of Tx.
[2018-10-22] MEDS: Insulin Lispro (humaLOG) 100 Units/ml Inj SC SCH (07:11)
[2018-10-22 08:13] VITALS: BP 122/65; PULSE 69; RESP 20; TEMP 98.8; O2SAT 92
[2018-10-22] MEDS ORDERED: Ergocalciferol 50,000 Intl Units Cap PO SCH (09:00)
[2018-10-22] MEDS: Nitroglycerin 0.1 mg/hr Top Patch TD SCH (09:54)
--- NOTE | 2018-10-22 22:58 | CON ---
DATE: 10/21/2018 REFERRING DOCTOR: Keith Red MD REASON FOR CONSULTATION: Dysfunctional feeding tube. HISTORY OF PRESENT ILLNESS: This is a very pleasant but demented 83-year-old female with history of stroke, epilepsy and then dysarthria, dysphagia, fpc patient, comes in now for new-onset seizure. GI is called because of dysfunction of feeding tube. The patient's tube dysfunctional and clogged. Otherwise lying in bed comfortable, in no apparent distress. PAST MEDICAL HISTORY: As above. PAST SURGICAL HISTORY: As above. MEDICATIONS: Have been reviewed. REVIEW OF SYSTEMS: All other systems have been obtained. PHYSICAL EXAMINATION: VITAL SIGNS: Here in the hospital grossly unremarkable. GENERAL: A pleasant elderly-appearing female, lying in bed comfortably, in no apparent distress. HEENT: Head: Normocephalic and atraumatic. Eyes: Pupils are equally reactive to light bilaterally. No conjunctival pallor or icterus. NECK: Supple. Normal range of motion. No lymphadenopathy appreciated. LUNGS: Coarse breath sounds bilaterally. HEART: S1 and S2. Regular rate and rhythm. No murmurs appreciated. ABDOMEN: Soft, nontender. Bowel sounds present. No rebound. No guarding. RECTAL: Deferred. EXTREMITIES: Pulses present bilaterally. SKIN: Warm, dry, and intact. NEUROLOGIC: A and O x2. Confusion and responds to pain. LABORATORY DATA: All labs and relevant radiology have been reviewed. Hemoglobin of 10.6, white count 9.7, hematocrit 32. BUN 23, creatinine 0.5. ASSESSMENT AND PLAN: This is an 83-year-old female with dysfunctional feeding tube. We will plan to change tube at bedside. Tube was changed at bedside subsequently to 18-[place] G-tube with good position. We will get an x-ray to confirm placement, otherwise use right away. Thank you for the consult. Christopher Pichardo MD/ PhD cc: Keith Red MD MTDD
--- NOTE | 2018-10-28 15:44 | CP.PCM.DIS ---
Provider - Provider Date of Admission: 10/19/18 14:35 Attending physician: Keith Red MD Consults: 10/17/18 18:01 Physician Consult Stat Comment: Consulting Provider: Laureano Packer Consulting Physician: Laureano Packer Reason for Consult: Recurrent seizure 10/21/18 08:03 Gastroenterology Consult Routine Comment: Consulting Provider: Christopher Pichardo Consulting Physician: Christopher Pichardo Reason for Consult: obstructed PEG Time Spent in preparation of Discharge (in minutes): 25 Diagnosis - Discharge Diagnosis (1) Status epilepticus Status: Acute Priority: High (2) Dementia Status: Chronic Priority: High (3) DMII (diabetes mellitus, type 2) Status: Chronic Priority: High (4) HTN (hypertension) Status: Chronic Priority: High (5) History of CVA (cerebrovascular accident) Status: Chronic Priority: Medium (6) Cerebral arterial aneurysm Status: Chronic Priority: Medium Hospital Course - Lab Results Lab Results: Micro Results 10/17/18 16:20 Blood-Venous Blood Culture - Final NO GROWTH AFTER 5 DAYS 10/17/18 16:20 Blood-Venous Gram Stain - Final TEST NOT PERFORMED 10/17/18 16:20 Urine,Catheterized Urine Culture - Final No Growth (<1,000 CFU/ML) Most Recent Lab Values WBC 9.7 K/uL (4.8-10.8) 10/19/18 04:30 RBC 3.50 Mil/uL (3.80-5.20) L 10/19/18 04:30 Hgb 10.6 g/dL (12.0-16.0) L 10/19/18 04:30 Hct 32.0 % (34.0-47.0) L 10/19/18 04:30 MCV 91.4 fl (81.0-99.0) 10/19/18 04:30 MCH 30.3 pg (27.0-31.0) 10/19/18 04:30 MCHC 33.2 g/dL (33.0-37.0) 10/19/18 04:30 RDW 14.0 % (11.5-14.5) 10/19/18 04:30 Plt Count 223 K/uL (130-400) 10/19/18 04:30 MPV 9.8 fl (7.2-11.7) 10/17/18 16:10 Neut % (Auto) 66.0 % (50.0-75.0) 10/17/18 16:10 Lymph % (Auto) 22.5 % (20.0-40.0) 10/17/18 16:10 [place] % (Auto) 8.8 % (0.0-10.0) 10/17/18 16:10 Eos % (Auto) 2.1 % (0.0-4.0) 10/17/18 16:10 Baso % (Auto) 0.6 % (0.0-2.0) 10/17/18 16:10 Neut # (Auto) 6.3 K/uL (1.8-7.0) 10/17/18 16:10 Lymph # (Auto) 2.2 K/uL (1.0-4.3) 10/17/18 16:10 [place] # (Auto) 0.8 K/uL (0.0-0.8) 10/17/18 16:10 Eos # (Auto) 0.2 K/uL (0.0-0.7) 10/17/18 16:10 Baso # (Auto) 0.1 K/uL (0.0-0.2) 10/17/18 16:10 Sodium 134 mmol/l (132-148) 10/19/18 04:30 Potassium 3.7 MMOL/L (3.6-5.0) 10/19/18 04:30 Chloride 100 mmol/L (98-107) 10/19/18 04:30 Carbon Dioxide 27 mmol/L (22-30) 10/19/18 04:30 Anion Gap 11 (10-20) 10/19/18 04:30 BUN 23 mg/dl (7-17) H 10/19/18 04:30 Creatinine 0.5 mg/dl (0.7-1.2) L 10/19/18 04:30 Est GFR ( Amer) > 60 10/19/18 04:30 Est GFR (Non-Af Amer) > 60 10/19/18 04:30 POC Glucose (mg/dL) 223 mg/dL (65-110) H 10/22/18 10:39 Random Glucose 207 mg/dL (65-105) H 10/19/18 04:30 Hemoglobin A1c 7.6 % (4.2-6.5) H 10/19/18 04:30 Calcium 9.7 mg/dL (8.4-10.2) 10/19/18 04:30 Total Bilirubin 0.4 mg/dl (0.2-1.3) 10/19/18 04:30 AST 15 U/L (14-36) 10/19/18 04:30 ALT 17 U/L (9-52) 10/19/18 04:30 Alkaline Phosphatase 111 U/L (38-126) 10/19/18 04:30 Total Protein 6.1 G/DL (6.3-8.2) L 10/19/18 04:30 Albumin 2.8 g/dL (3.5-5.0) L 10/19/18 04:30 Globulin 3.3 gm/dL (2.2-3.9) 10/19/18 04:30 Albumin/Globulin Ratio 0.8 (1.0-2.1) L 10/19/18 04:30 Triglycerides 108 mg/DL (0-149) 10/18/18 04:30 Cholesterol 69 mg/dL (0-199) 10/18/18 04:30 LDL Cholesterol Direct 39 mg/dL (0-129) 10/18/18 04:30 HDL Cholesterol 22 MG/DL (30-70) L 10/18/18 04:30 Vitamin B12 737 pg/mL (239-931) 10/19/18 04:30 25-OH Vitamin D Total 14.1 NG/ML (30.0-100.0) L 10/19/18 04:30 Thyroxine (T4) 8.76 ug/dl (5.5-11.0) 10/18/18 04:30 TSH 3rd Generation 4.00 mIU/ML (0.46-4.68) 10/18/18 04:30 Urine Color Yellow (YELLOW) 10/17/18 16:20 Urine Clarity Slighty-cloudy (Clear) 10/17/18 16:20 Urine pH 6.0 (5.0-8.0) 10/17/18 16:20 Ur Specific [place] 1.016 (1.003-1.030) 10/17/18 16:20 Urine Protein Negative mg/dL (NEGATIVE) 10/17/18 16:20 Urine Glucose (UA) Neg mg/dL (NEGATIVE) 10/17/18 16:20 Urine Ketones Negative mg/dL (NEGATIVE) 10/17/18 16:20 Urine Blood Negative (NEGATIVE) 10/17/18 16:20 Urine Nitrate Negative (NEGATIVE) 10/17/18 16:20 Urine Bilirubin Negative (NEGATIVE) 10/17/18 16:20 Urine Urobilinogen 0.2-1.0 mg/dL (0.2-1.0) 10/17/18 16:20 Ur Leukocyte Esterase Neg Marta/uL (Negative) 10/17/18 16:20 Urine RBC (Auto) 1 /hpf (0-3) 10/17/18 16:20 Urine Microscopic WBC 1 /hpf (0-5) 10/17/18 16:20 Ur Squamous Epith Cells < 1 /hpf (0-5) 10/17/18 16:20 Levetiracetam 55.9 mcg/mL 10/19/18 04:30 - Date & Time of H&P Date of H&P: 10/18/18 Time of H&P: 14:40 Discharge Exam - Head Exam Head Exam: NORMAL INSPECTION Discharge Plan - Follow Up Plan Condition: FAIR Disposition: TRANSF TO SNF Instructions: Seizures, Adult (DC) Referrals: Keith Red MD [Staff Provider] -
--- NOTE | 2018-11-05 12:20 | PQF ---
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 EEG showed slowing in the temporal region. No intract able and not in status epilepticus. Not symptomatic while admitted. REVIEWER QUERY TEXT: Clarification of Clinical Diagnostic Findings Physician?s Documentation Request This Form is Not a Permanent Document in the Medical Record Pt Name: RAJESH ELIAS MR #: [id number] Payor: MEDICARE PART A Unit/Bed: H.TEL-H403-6 Adm Date: 10/19/2018 2:35:00 PM Reviewer: Colette Emerson Ext. Query Date: 10/31/2018 2:52:00 PM Clarification of Clinical Diagnostic Findings [id number] By submitting this query, we are merely seeking further clarification of documentation to accurately reflect all conditions that you are monitoring, evaluating, treating or that extend the hospitalizati on or utilize additional resources of care. Please utilize your independent clinical judgment when ad dressing the question(s) below. Dear Doctor Yue Cardona, The patient?s Clinical Indicators include: --- Please further specify the type of localization related epilepsy if known: i.e. 1.Idiopathic :with seizures of localized onset :intractable versus not intractable 2.Symptomatic: with complex partial seizures: intractable versus not intractable 3.Symptomatic: with simple: partial seizures: intractable versus not intractable OR: Unable to determine 10/18 Neuro consult includes: Patient with localization related epilepsy who was loaded with Keppra and is now well. OR: Other explanation of clinical finding PLEASE DOCUMENT ANY ADDITIONAL DIAGNOSES AND/OR SPECIFICITY IN THE PROGRESS NOTES AND/OR DISCHARGE [place] [facility]. Clinically unable to determine/unknown Disagree with the above request Need to discuss Query created by: Colette Emerson on 10/31/2018 2:52 PM Electronically signed by: Yue Cardona APN 11/05/2018 12:17 PM
--- NOTE | 2018-11-05 14:49 | PQF ---
PROVIDER RESPONSE TEXT: The localization related epilepsy is further clarified as follows: This patient has symptomatic with complex partial seizures that are not intractable. Dr. Borges Neurology REVIEWER QUERY TEXT: Clarification of Clinical Diagnostic Findings Physician?s Documentation Request This Form is Not a Permanent Document in the Medical Record Pt Name: RAJESH ELIAS MR #: [id number] Payor: MEDICARE PART A Unit/Bed: H.TEL-H403-1 Adm Date: 10/19/2018 2:35:00 PM Reviewer: Colette Emerson Ext. Query Date: 10/23/2018 7:52:00 AM Clarification of Clinical Diagnostic Findings [id number] By submitting this query, we are merely seeking further clarification of documentation to accurately reflect all conditions that you are monitoring, evaluating, treating or that extend the hospitalizati on or utilize additional resources of care. Please utilize your independent clinical judgment when ad dressing the question(s) below. Dear Doctor Ashley Borges, The patient?s Clinical Indicators include: -- Please further specify the type of localization related epilepsy if known: i.e. 1.Idiopathic :with seizures of localized onset :intractable versus not intractable 2.Symptomatic:with complex partial seizures: intractable versus not intractable 3.Sympotomatic: with simple:partial seizures: intractable versus not intractable OR: Unable to determine 10/18 Neuro consult includes: Patient with localization related epilepsy who was loaded with Keppra and is now well. OR: Other explanation of clinical finding PLEASE DOCUMENT ANY ADDITIONAL DIAGNOSES AND/OR SPECIFICITY IN THE PROGRESS NOTES AND/OR DISCHARGE [place] [facility]. Clinically unable to determine/unknown Disagree with the above request Need to discuss Query created by: Colette Emerson on 10/23/2018 7:52 AM Electronically signed by: Ashley Borges MD 11/05/2018 2:47 PM
== END 2018-10-22 13:35 | DRG 101 ==
LOC: H.ER 15:26 → H.ERHOLD 17:42 → OBSVTOIN 17:42 → INTOOBSV 17:42 → UNDOADMOB 17:42 → H.TEL 22:22 → H.ERHOLD 22:22 → OBSVTOIN 10-19 14:35 → H.TEL 10-19 14:35
PROVIDERS: ADMIT Internal Medicine Pulmonary Disease; ATTEND Internal Medicine Pulmonary Disease
PROC: 0D20XUZ Change Feeding Device in Upper Intestinal Tract, External Approach (ICD-10-PCS; principal; 2018-10-22)
DX: G40.201 Localization-related (focal) (partial) symptomatic epilepsy and epileptic syndromes with complex partial seizures, not intractable, with status epilepticus (principal); Z43.1 Encounter for attention to gastrostomy; G93.40 Encephalopathy, unspecified; I69.351 Hemiplegia and hemiparesis following cerebral infarction affecting right dominant side; G32.89 Other specified degenerative disorders of nervous system in diseases classified elsewhere; Z79.4 Long term (current) use of insulin; J44.9 Chronic obstructive pulmonary disease, unspecified; G30.9 Alzheimer's disease, unspecified; D32.9 Benign neoplasm of meninges, unspecified; F02.80 Dementia in other diseases classified elsewhere, unspecified severity, without behavioral disturbance, psychotic disturbance, mood disturbance, and anxiety; E11.9 Type 2 diabetes mellitus without complications; I10 Essential (primary) hypertension; I67.1 Cerebral aneurysm, nonruptured; E78.00 Pure hypercholesterolemia, unspecified; G93.89 Other specified disorders of brain; F41.9 Anxiety disorder, unspecified; M19.90 Unspecified osteoarthritis, unspecified site

== ENCOUNTER 2018-11-23 08:07 | Observation (INO) | payer MEDICARE, MEDICAID ==
[2018-11-23] MEDS ORDERED: Sodium Chloride 0.9% 500 ML IV STA (08:47)
--- NOTE | 2018-11-23 09:44 | ED PDOC ---
HPI: General Adult Time Seen by Provider: 11/23/18 08:20 Chief Complaint (Nursing): Abdominal Pain Chief Complaint (Provider): Abdominal Pain History/Exam Limitations: clinical condition Additional History Per: Senior Care Additional Complaint(s): 83 year old female with pmhx of CVA, seziures, HTN, dementia, diabetes and stroke was brought to the ED via EMS for an evaluation of malfunctioning PEG tube as per RN at [facility]. The tube fell out on and the soares catheter was placed in yesterday. HPI is limited due to patient's condition. Patient is not following commands, but she is able to move her extremities on her own will. GI: unknown PMD: Dr. Red Past Medical History Reviewed: Historical Data, Nursing Documentation, Vital Signs Vital Signs: Last Vital Signs Temp 98 F 11/23/18 08:12 Pulse 80 11/23/18 08:12 Resp 16 11/23/18 08:12 BP 139/84 11/23/18 08:12 Pulse Ox 95 11/23/18 08:12 Primary Care Provider: Keith Red - Medical History PMH: Alzheimer's Disease, Anxiety, Arthritis, Bronchitis, COPD, CVA, Dementia, Gall Bladder Disease, HTN, Hypercholesterolemia, Seizures, TIA Denies: HIV, Chronic Kidney Disease - Surgical History Surgical History: Cholecystectomy - Family History Family History: States: Unknown Family Hx - Living Arrangements Living Arrangements: Senior Care/Assist Lvng - Home Medications Home Medications: Ambulatory Orders Medication Instructions Recorded Atorvastatin [Lipitor] 40 mg PEG HS 12/30/17 Carvedilol [Coreg] 6.25 mg PEG Q12 12/30/17 Insulin Lispro [humALOG] 6 unit SC ACTID 12/30/17 Clopidogrel [Plavix] 75 mg PEG DAILY tab 01/03/18 Aspirin [Aspirin Chewable] 81 mg PEG QPM 05/26/18 Famotidine [Pepcid] 20 mg PEG HS 05/26/18 Nitroglycerin 0.1 mg/hr [Nitro-Dur 1 patch TD DAILY 05/26/18 0.1 mg/hr Patch] amLODIPine [Norvasc] 5 mg PEG DAILY 05/26/18 levETIRAcetam Solution [Keppra] 650 mg PEG Q12 05/26/18 Albuterol/Ipratropium [Duoneb 3 3 ml IH Q6 PRN 06/08/ mg/0.5 mg (3 ml) UD] Acetaminophen [Tylenol 160mg/5ml 20 ml PEG Q4 PRN 10/17/18 Oral Soln] Acetaminophen [Tylenol 160mg/5ml 20 ml PEG Q4 PRN 10/17/18 Oral Soln] Magnesium Hydroxide [Milk Of 30 ml PEG HS PRN 10/17/18 Magnesia] Ergocalciferol [Drisdol 50,000 1 cap PO Q7D cap 10/22/18 Intl Units Cap] - Allergies Allergies/Adverse Reactions: Allergies Allergy/AdvReac Type Severity Reaction Status Date / Time No Known Allergies Allergy Verified 07/21/18 11:12 Review of Systems Review Of Systems: ROS cannot be obtained secondary to pt's inabilty to answer questions. Physical Exam - Reviewed Nursing Documentation Reviewed: Yes Vital Signs Reviewed: Yes - Physical Exam Appears: Positive for: Non-toxic Head Exam: Positive for: ATRAUMATIC, NORMAL INSPECTION, NORMOCEPHALIC Skin: Positive for: Normal Color, Warm, Dry. Negative for: Rash Cardiovascular/Chest: Positive for: Regular Rate, Rhythm. Negative for: Murmur Respiratory: Positive for: Normal Breath Sounds. Negative for: Respiratory Distress Gastrointestinal/Abdominal: Positive for: Normal Exam (soares catheter is inserted to the PEG tube hole ), Soft, Other (no erythema or ecchymosis ). Negative for: Tenderness, Guarding, Rebound Back: Positive for: Normal Inspection (no ulcer ) Extremity: Positive for: Normal ROM. Negative for: Deformity Neurological/Psych: Positive for: Awake, Other (moving extremities on her own will) - Laboratory Results Result Diagrams: 11/23/18 09:40 11/23/18 10:05 Interpretation Of Abn Labs: no acute - ECG ECG: Positive for: Interpreted By Me, Viewed By Me ECG Rhythm: Positive for: Normal QRS, Normal ST Segment, Sinus Rhythm O2 Sat by Pulse Oximetry: 95 (RA) Pulse Ox Interpretation: Normal - Radiology X-Ray: Interpreted by Me, Viewed By Me X-Ray Interpretation: Other (no acute; stool in abd) - Progress ED Course And Treament: 1052: Stable. Gastrogaffin study done and ? if tube in place. Will need gi consult for further evaluation and treatment. Medical Decision Making Medical Decision Making: Time: 913 Plan: EKG CMP Troponin CBC w/ differential PTT Prothrombin time Normal Saline 100 mls/hr Glucose, POC 0920 Nurse pushed air through the catheter and can hear air in the abdomen. Therefore, soares catheter was identified in place within the abdomen [address] Red who requested GI consult with Dr. Pichardo 954 Patient admitted to observation for PEG tube replacement -- Scribe Attestation: Documented by Debra Devries, acting as a scribe for Jacob Brizuela MD Provider Scribe Attestation: All medical record entries made by the Scribe were at my direction and personally dictated by me. I have reviewed the chart and agree that the record accurately reflects my personal performance of the history, physical exam, medical decision making, and the department course for this patient. I have also personally directed, reviewed, and agree with the discharge instructions and disposition. Disposition - Clinical Impression Clinical Impression: PEG tube malfunction - Patient ED Disposition Is Patient to be Admitted: Yes - Disposition Disposition Time: 10:54 Condition: FAIR - POA Present On Arrival: None
[2018-11-23] MEDS ORDERED: Diatriz Meglumine/Diatriz Sod 30 ML BOTTLE PO STA (10:01)
[2018-11-23 10:28] LABS: BASO # 0.1 K/uL (0.0-0.2); EOS # 0.5 K/uL (0.0-0.7); EOS % 5.7 % (0.0-4.0); HEMOGLOBIN 12.7 g/dL (12.0-16.0); LYMPH # 1.9 K/uL (1.0-4.3); LYMPH % 23.5 % (20.0-40.0); MEAN CORPUSCULAR HEMOGLOBIN 29.8 pg (27.0-31.0); MEAN CORPUSCULAR HGB CONC 33.1 g/dL (33.0-37.0); MEAN PLATELET VOLUME 9.1 fl (7.2-11.7); MONO # 0.6 K/uL (0.0-0.8); MONO % 7.4 % (0.0-10.0); NEUT % 62.4 % (50.0-75.0); NRBC % 0.1 % (0.0-0.0); RBC 4.26 Mil/uL (3.80-5.20); RED CELL DISTRIBUTION WIDTH 14.1 % (11.5-14.5)
[2018-11-23 10:43] LABS: ALB/GLOB RATIO 0.9 (1.0-2.1); ALBUMIN 3.3 g/dL (3.5-5.0); ALT/SGPT 15 U/L (9-52); AST/SGOT 25 U/L (14-36); BLOOD UREA NITROGEN 11 mg/dl (7-17); GFR NON-AFRICAN AMERICAN > 60
[2018-11-23 11:11] LABS: PARTIAL THROMBOPLASTIN TIME 30.1 Seconds (25.6-37.1)
[2018-11-23 11:38] LABS: INR 1.1; PROTHROMBIN TIME 12.7 Seconds (9.8-13.1)
[2018-11-23] MEDS ORDERED: Albuterol-Ipratrop 3 mg / 0.5 (3 ml) UD IH PRN (16:03)
--- NOTE | 2018-11-23 16:18 | CP.PCM.HP ---
History of Present Illness - History of Present Illness History of Present Illness: CC: Peg-Tube malfunction. 83 years old female group home resident, PMHx includes: Old CVA, COPD, DMII, Dementia, Cerebral Artery Aneurysm, HTN, TIA, Seizure. Pt was brought to [facility] via EMS due to PEG tube malfunction, unsuccessfully replaced twice while at [place]. PEG tube fell out on and Pedroza catheter was placed, flat plate of the abdomen did not show if the Pedroza catheter was in place and PEG feeding was on hold, Patient was transferred to [facility], obstruc tive series large amount of fecal material in the colon with rectal distention Patient was recently admitted on 10/18/2018 [facility] with diagnosis of Status Epilepticus and was discharged on Keppra in stable condition. Worsening symptoms: weakness, poor historian. Aggravated factor: Movement/exercise. No: Fever, chills, n/v, dysuria, CP, palpitations, syncope, SOB, cough, sick contact. Abdomen X-Ray: Normal Present on Admission - Present on Admission Any Indicators Present on Admission: No Review of Systems - Review of Systems Systems not reviewed;Unavailable: Acuity of Condition, Dementia Past Patient History - Infectious Disease Hx of Infectious Diseases: None - Past Medical History & Family History Past Medical History?: Yes - Past Social History Smoking Status: Never Smoked Alcohol: None Drugs: Denies Home Situation {Lives}: Jail - CARDIAC Hx Cardiac Disorders: Yes Hx Hypercholesterolemia: Yes Hx Hypertension: Yes - PULMONARY Hx Respiratory Disorders: Yes Hx Bronchitis: Yes Hx Chronic Obstructive Pulmonary Disease (COPD): Yes - NEUROLOGICAL Hx Neurological Disorder: Yes Hx Dementia: Yes Hx Seizures: Yes Hx Transient Ischemic Attacks (TIA): Yes Other/Comment: Cerebral aneurysm - HEENT Hx HEENT Problems: No - RENAL Hx Chronic Kidney Disease: No - ENDOCRINE/METABOLIC Hx Endocrine Disorders: Yes Hx Diabetes Mellitus Type 2: Yes - HEMATOLOGICAL/ONCOLOGICAL Hx Blood Disorders: No Hx Human Immunodeficiency Virus (HIV): No - INTEGUMENTARY Hx Dermatological Problems: No - MUSCULOSKELETAL/RHEUMATOLOGICAL Hx Musculoskeletal Disorders: Yes Hx Arthritis: Yes Hx Falls: No - GASTROINTESTINAL Hx Gastrointestinal Disorders: Yes Hx Gall Bladder Disease: Yes HX Swallowing Problems: Yes - GENITOURINARY/GYNECOLOGICAL Hx Genitourinary Disorders: Yes Hx Incontinence: Yes - PSYCHIATRIC Hx Psychophysiologic Disorder: Yes Hx Substance Use: No - SURGICAL HISTORY Hx Surgeries: Yes Hx Cholecystectomy: Yes - ANESTHESIA Hx Anesthesia: Yes Hx Anesthesia Reactions: No Hx Malignant Hyperthermia: No Meds Allergies/Adverse Reactions: Allergies Allergy/AdvReac Type Severity Reaction Status Date / Time No Known Allergies Allergy Verified 07/21/18 11:12 Physical Exam - Constitutional Appears: No Acute Distress, Confused, Chronically Ill - Head Exam Head Exam: NORMAL INSPECTION - Eye Exam Eye Exam: PERRL - ENT Exam ENT Exam: Normal Exam - Neck Exam Neck exam: Positive for: Normal Inspection - Respiratory Exam Respiratory Exam: Decreased Breath Sounds (at bases) - Cardiovascular Exam Cardiovascular Exam: REGULAR RHYTHM, Systolic Murmur (2/6 LSB) - GI/Abdominal Exam Additional comments: Peg tube. Pedroza Catheter connected into the peg stoma. - Extremities Exam Extremities exam: Positive for: normal inspection - Back Exam Back exam: NORMAL INSPECTION - Neurological Exam Additional comments: Awake, confused, R side hemiparesia - Psychiatric Exam Additional comments: Calm - Skin Skin Exam: Warm Results - Vital Signs Recent Vital Signs: Last Vital Signs Temp 97.4 F L 11/23/18 12:13 Pulse 81 11/23/18 12:34 Resp 19 11/23/18 12:34 BP 171/78 H 11/23/18 12:13 Pulse Ox 98 11/23/18 12:34 reviewed Kaylyn - Labs Result Diagrams: 11/24/18 07:20 11/24/18 07:20 Labs: Laboratory Results - last 24 hr 11/23/18 11/23/18 11/23/18 08:35 09:40 09:40 WBC 8.0 RBC 4.26 Hgb 12.7 D Hct 38.3 MCV 90.0 MCH 29.8 MCHC 33.1 RDW 14.1 Plt Count 293 MPV 9.1 Neut % (Auto) 62.4 Lymph % (Auto) 23.5 [place] % (Auto) 7.4 Eos % (Auto) 5.7 H Baso % (Auto) 1.0 Neut # (Auto) 5.0 Lymph # (Auto) 1.9 [place] # (Auto) 0.6 Eos # (Auto) 0.5 Baso # (Auto) 0.1 PT 12.7 INR 1.1 APTT 30.1 Sodium Potassium Chloride Carbon Dioxide Anion Gap BUN Creatinine Est GFR ( Amer) Est GFR (Non-Af Amer) POC Glucose (mg/dL) 189 H Random Glucose Calcium Total Bilirubin AST ALT Alkaline Phosphatase Troponin I Total Protein Albumin Globulin Albumin/Globulin Ratio 11/23/18 10:05 WBC RBC Hgb Hct MCV MCH MCHC RDW Plt Count MPV Neut % (Auto) Lymph % (Auto) [place] % (Auto) Eos % (Auto) Baso % (Auto) Neut # (Auto) Lymph # (Auto) [place] # (Auto) Eos # (Auto) Baso # (Auto) PT INR APTT Sodium 135 Potassium 3.4 L Chloride 97 L Carbon Dioxide 30 Anion Gap 11 BUN 11 Creatinine 0.4 L Est GFR ( Amer) > 60 Est GFR (Non-Af Amer) > 60 POC Glucose (mg/dL) Random Glucose 191 H Calcium 10.0 Total Bilirubin 0.8 AST 25 ALT 15 Alkaline Phosphatase 110 Troponin I < 0.0120 Total Protein 7.2 Albumin 3.3 L Globulin 3.8 Albumin/Globulin Ratio 0.9 L reviewed J.P. - Imaging and Cardiology Abdominal x-ray Status: Report reviewed by me (J.P.) Assessment & Plan (1) PEG tube malfunction Status: Acute Priority: High (2) Dementia Status: Chronic Priority: High (3) Diabetes mellitus Status: Chronic Priority: High (4) History of CVA (cerebrovascular accident) Status: Chronic Priority: Medium (5) Hypertension Status: Chronic Priority: Medium (6) COPD (chronic obstructive pulmonary disease) Status: Chronic Priority: Medium (7) Cerebral arterial aneurysm Status: Chronic Priority: Medium - Assessment and Plan (Free Text) Plan: Continue Duoneb, Ntg 2% oit. Humalog, Sodium Chl and rest of Tx. GI consult. - Date & Time Date: 11/23/18 Time: 16:00
--- NOTE | 2018-11-23 16:28 | RAD ---
Date of service: 11/23/2018 PROCEDURE: Radiographs of the chest and abdomen (obstructive series) HISTORY: PEG TUBE COMPARISON: Frontal chest radiograph 10/17/2018 and abdomen radiograph 10/21/2018. TECHNIQUE: AP radiograph of the chest, with upright and supine radiographs of the abdomen. 3 views obtained. FINDINGS: CHEST: Lungs: Limited left basilar atelectasis or infiltrate identified. Cardiovascular: Normal size heart. No pulmonary vascular congestion. No aortic atherosclerotic calcification present Pleura: No pneumothorax or right pleural effusion. Trace left pleural effusion not excluded. Other findings: None. ABDOMEN AND PELVIS: Bowel: A prominent retained fecal material is increased at the ascending colon and hepatic flexure region with mild to moderate rectal fecal impaction identified. Surgical clips again evident right upper quadrant abdomen. Free air: None. Bones: Unremarkable. Other findings: Oral contrast in the stomach has resolved in the interval. IMPRESSION: No definite bowel obstruction pattern. No free intra peritoneal gas collection either. Increasing retained fecal material right hemicolon rectal fecal impaction again evident. Limited left basilar airspace disease identified in the interval. Trace left pleural effusion not excluded.
[2018-11-23] MEDS: Potassium Ch 20mEq in D5-1/2NS 1,000 ML IV SCH (17:24)
[2018-11-23] MEDS: Insulin Lispro (humaLOG) 100 Units/ml Inj SC SCH ×2 (17:26→22:25)
--- NOTE | 2018-11-23 17:29 | RAD ---
Date of service: 11/23/2018 HISTORY: placement of tube in abd COMPARISON: None available. TECHNIQUE: 1 view obtained. FINDINGS: BOWEL: Normal. No obstruction. No free air. Oral contrast material is identified opacifying the stomach and proximal duodenum. No definite extravasation identified. BONES: Normal. OTHER FINDINGS: None. IMPRESSION: Opacification of the stomach via contrast injection through gastrostomy tube indicates adequate placement of gastrostomy tube. No extravasation identified.
[2018-11-23] MEDS: Nitroglycerin 2% Ointment Foilpak UD TOP SCH (20:19)
[2018-11-24] MEDS: Sodium Chloride 0.45% 1,000 ML IV SCH ×2 (05:55→09:54)
[2018-11-24] MEDS: Potassium Ch 20mEq in D5-1/2NS 1,000 ML IV SCH ×2 (05:56→17:41)
[2018-11-24 06:32] LABS: MEAN CELL VOLUME 91.5 fl (81.0-99.0); MEAN CORPUSCULAR HEMOGLOBIN 29.6 pg (27.0-31.0); MEAN CORPUSCULAR HGB CONC 32.3 g/dL (33.0-37.0); RBC 3.61 Mil/uL (3.80-5.20); WHITE BLOOD COUNT 6.9 K/uL (4.8-10.8)
[2018-11-24 06:39] LABS: INR 1.3; PROTHROMBIN TIME 14.7 Seconds (9.8-13.1)
[2018-11-24 06:40] LABS: HEMOGLOBIN 10.7 g/dL (12.0-16.0)
[2018-11-24 06:42] LABS: PARTIAL THROMBOPLASTIN TIME 29.2 Seconds (25.6-37.1)
[2018-11-24 07:38] LABS: HEMOGLOBIN 12.6 g/dL (12.0-16.0); MEAN CELL VOLUME 89.8 fl (81.0-99.0); MEAN CORPUSCULAR HGB CONC 32.3 g/dL (33.0-37.0); RBC 4.34 Mil/uL (3.80-5.20); RED CELL DISTRIBUTION WIDTH 13.9 % (11.5-14.5)
[2018-11-24 07:56] LABS: ALB/GLOB RATIO 0.9 (1.0-2.1); ALBUMIN 3.2 g/dL (3.5-5.0); ALT/SGPT 16 U/L (9-52); AST/SGOT 16 U/L (14-36); BLOOD UREA NITROGEN 8 mg/dl (7-17); CALCIUM 9.6 mg/dL (8.4-10.2); GFR NON-AFRICAN AMERICAN > 60
[2018-11-24 08:12] LABS: HDL CHOLESTEROL 25 MG/DL (30-70)
[2018-11-24 08:23] LABS: LDL CHOLESTEROL 40 mg/dL (0-129)
[2018-11-24] MEDS ORDERED: Potassium Chloride 20 mEq/15 ml LIQ UD PO ONE (09:43)
[2018-11-24] MEDS: Insulin Lispro (humaLOG) 100 Units/ml Inj SC SCH ×3 (09:55→16:48)
[2018-11-24] MEDS: Nitroglycerin 2% Ointment Foilpak UD TOP SCH (09:56)
--- NOTE | 2018-11-24 14:08 | CP.PCM.DIS ---
Provider - Provider Date of Admission: 11/23/18 09:55 Attending physician: Keith Red MD Consults: 11/23/18 09:53 Gastroenterology Consult Stat Comment: Consulting Provider: Christopher Pichardo Consulting Physician: Christopher Pichardo Reason for Consult: peg tube replacement Time Spent in preparation of Discharge (in minutes): 35 Diagnosis - Discharge Diagnosis (1) PEG tube malfunction Status: Acute Priority: High (2) Dementia Status: Chronic Priority: High (3) Diabetes mellitus Status: Chronic Priority: High (4) History of CVA (cerebrovascular accident) Status: Chronic Priority: Medium (5) Hypertension Status: Chronic Priority: Medium (6) COPD (chronic obstructive pulmonary disease) Status: Chronic Priority: Medium (7) Cerebral arterial aneurysm Status: Chronic Priority: Medium Hospital Course - Lab Results Lab Results: Most Recent Lab Values WBC 8.0 K/uL (4.8-10.8) 11/24/18 07:20 RBC 4.34 Mil/uL (3.80-5.20) 11/24/18 07:20 Hgb 12.6 g/dL (12.0-16.0) 11/24/18 07:20 Hct 39.0 % (34.0-47.0) 11/24/18 07:20 MCV 89.8 fl (81.0-99.0) 11/24/18 07:20 MCH 29.0 pg (27.0-31.0) 11/24/18 07:20 MCHC 32.3 g/dL (33.0-37.0) L 11/24/18 07:20 RDW 13.9 % (11.5-14.5) 11/24/18 07:20 Plt Count 288 K/uL (130-400) 11/24/18 07:20 MPV 9.1 fl (7.2-11.7) 11/23/18 09:40 Neut % (Auto) 62.4 % (50.0-75.0) 11/23/18 09:40 Lymph % (Auto) 23.5 % (20.0-40.0) 11/23/18 09:40 [place] % (Auto) 7.4 % (0.0-10.0) 11/23/18 09:40 Eos % (Auto) 5.7 % (0.0-4.0) H 11/23/18 09:40 Baso % (Auto) 1.0 % (0.0-2.0) 11/23/18 09:40 Neut # (Auto) 5.0 K/uL (1.8-7.0) 11/23/18 09:40 Lymph # (Auto) 1.9 K/uL (1.0-4.3) 11/23/18 09:40 [place] # (Auto) 0.6 K/uL (0.0-0.8) 11/23/18 09:40 Eos # (Auto) 0.5 K/uL (0.0-0.7) 11/23/18 09:40 Baso # (Auto) 0.1 K/uL (0.0-0.2) 11/23/18 09:40 PT 14.7 Seconds (9.8-13.1) H 11/24/18 05:00 INR 1.3 11/24/18 05:00 APTT 29.2 Seconds (25.6-37.1) 11/24/18 05:00 Sodium 135 mmol/l (132-148) 11/24/18 07:20 Potassium 3.3 MMOL/L (3.6-5.0) L 11/24/18 07:20 Chloride 99 mmol/L (98-107) 11/24/18 07:20 Carbon Dioxide 27 mmol/L (22-30) 11/24/18 07:20 Anion Gap 12 (10-20) 11/24/18 07:20 BUN 8 mg/dl (7-17) 11/24/18 07:20 Creatinine 0.4 mg/dl (0.7-1.2) L 11/24/18 07:20 Est GFR ( Amer) > 60 11/24/18 07:20 Est GFR (Non-Af Amer) > 60 11/24/18 07:20 POC Glucose (mg/dL) 184 mg/dL (65-110) H 11/24/18 11:02 Random Glucose 189 mg/dL (65-105) H 11/24/18 07:20 Hemoglobin A1c 7.5 % (4.2-6.5) H 11/24/18 05:00 Calcium 9.6 mg/dL (8.4-10.2) 11/24/18 07:20 Total Bilirubin 0.8 mg/dl (0.2-1.3) 11/24/18 07:20 AST 16 U/L (14-36) 11/24/18 07:20 ALT 16 U/L (9-52) 11/24/18 07:20 Alkaline Phosphatase 104 U/L (38-126) 11/24/18 07:20 Troponin I < 0.0120 ng/mL (0.00-0.120) 11/23/18 10:05 Total Protein 6.9 G/DL (6.3-8.2) 11/24/18 07:20 Albumin 3.2 g/dL (3.5-5.0) L 11/24/18 07:20 Globulin 3.7 gm/dL (2.2-3.9) 11/24/18 07:20 Albumin/Globulin Ratio 0.9 (1.0-2.1) L 11/24/18 07:20 Triglycerides 105 mg/DL (0-149) 11/24/18 07:20 Cholesterol 81 mg/dL (0-199) 11/24/18 07:20 LDL Cholesterol Direct 40 mg/dL (0-129) 11/24/18 07:20 HDL Cholesterol 25 MG/DL (30-70) L 11/24/18 07:20 Thyroxine (T4) 8.00 ug/dl (5.5-11.0) 11/24/18 07:20 TSH 3rd Generation 4.36 mIU/ML (0.46-4.68) 11/24/18 07:20 - Date & Time of H&P Date of H&P: 11/23/18 Time of H&P: 16:00 Discharge Exam - Head Exam Head Exam: NORMAL INSPECTION - Eye Exam Eye Exam: PERRL - ENT Exam ENT Exam: Normal Exam - Neck Exam Neck exam: Normal Inspection - Respiratory Exam Respiratory Exam: Decreased Breath Sounds (at bases) - Cardiovascular Exam Cardiovascular Exam: REGULAR RHYTHM, Systolic Murmur (2/6 LSB) - GI/Abdominal Exam Additional comments: Peg tube. Pedroza catheter connected into the peg stoma. - Extremities Exam Extremities exam: normal inspection - Back Exam Back exam: NORMAL INSPECTION - Neurological Exam Additional comments: Awake, confused, R side hemiparesia - Psychiatric Exam Additional comments: Calm - Skin Skin Exam: Warm Discharge Plan - Follow Up Plan Condition: FAIR Disposition: REHAB FACILITY/REHAB UNIT Instructions: Gastrostomy, Permanent and Temporary Additional Instructions: central hospital Referrals: Christopher Pichardo MD, PhD [Staff Provider] - Keith Red MD [Staff Provider] -
[2018-11-24 15:55] VITALS: BP 142/70; PULSE 75; RESP 19; TEMP 97.6; O2SAT 96
--- NOTE | 2018-11-26 01:34 | CON ---
DATE: 11/24/2018 REFERRING PHYSICIAN: Keith Red MD REASON FOR CONSULTATION: Dysphagia, feeding tube dysfunction. HISTORY OF PRESENT ILLNESS: This is an 83-year-old female who is demented, half-way resident, history of CVA, COPD, dementia, diabetes, hypertension, seizure. She has been monitored for dysfunctional feeding tube. By the time I got to see her, the tube has been flushed and checked and position was confirmed and usable. Currently, the patient is lying in bed comfortable, in no apparent distress. PAST MEDICAL HISTORY: As above. PAST SURGICAL HISTORY: As above. MEDICATIONS: Reviewed. REVIEW OF SYSTEMS: All other systems have been obtained. PHYSICAL EXAMINATION: VITAL SIGNS: Here in the hospital are grossly unremarkable. GENERAL: A pleasant elderly-appearing female, lying in bed comfortable, in no apparent distress. HEENT: Head: Normocephalic and atraumatic. Eyes: Pupils are equally reactive to light bilaterally. No conjunctival pallor or icterus. NECK: Supple. Normal range of motion. No lymphadenopathy appreciated. LUNGS: Coarse breath sounds bilaterally. HEART: S1 and S2. Regular rate and rhythm. No murmurs appreciated. ABDOMEN: Soft, nontender. Bowel sounds present. No rebound. No guarding. RECTAL: Deferred. EXTREMITIES: Pulses felt bilaterally. SKIN: Warm, dry, and intact. NEUROLOGIC: Alert and oriented x1. LABORATORY DATA: Labs and radiology have been reviewed. WBC is 8, hemoglobin 12.6, and hematocrit 39. ASSESSMENT AND PLAN: This is an 83-year-old female with feeding tube dysfunction. From gastroenterology standpoint, can use it right away. Discharged to home safely. Thank you for the consultation. Christopher Pichardo MD/ PhD cc: Keith Red MD
== END 2018-11-24 18:05 ==
LOC: H.ER 08:07 → H.ERHOLD 09:55 → H.MEDSURG1 11:57
PROVIDERS: ADMIT Internal Medicine Pulmonary Disease; ATTEND Internal Medicine Pulmonary Disease
DX: Z43.1 Encounter for attention to gastrostomy (principal); E11.9 Type 2 diabetes mellitus without complications; E78.00 Pure hypercholesterolemia, unspecified; F02.80 Dementia in other diseases classified elsewhere, unspecified severity, without behavioral disturbance, psychotic disturbance, mood disturbance, and anxiety; G30.9 Alzheimer's disease, unspecified; F41.9 Anxiety disorder, unspecified; I10 Essential (primary) hypertension; Z79.02 Long term (current) use of antithrombotics/antiplatelets; Z79.4 Long term (current) use of insulin; J44.9 Chronic obstructive pulmonary disease, unspecified; I67.1 Cerebral aneurysm, nonruptured; Z86.73 Personal history of transient ischemic attack (TIA), and cerebral infarction without residual deficits; G40.909 Epilepsy, unspecified, not intractable, without status epilepticus
CPT/HCPCS: 36415; 74018; 74022; 80053; 80061; 80177; 82948; 83036; 84436; 84443; 84484; 85025; 85027; 85610; 85730; 99285; G0378; J1953; J7030; J7040; Q9958

== ENCOUNTER 2018-12-05 08:44 | Emergency (ER) | payer MEDICARE, MEDICAID ==
[2018-12-05 08:49] VITALS: RESP 16; O2SAT 95
[2018-12-05 08:50] VITALS: BMI 30.9
--- NOTE | 2018-12-05 10:23 | ED PDOC ---
HPI: General Adult Time Seen by Provider: 12/05/18 09:56 Chief Complaint (Nursing): GI Problem Chief Complaint (Provider): Peg tube placement History Per: Family, Other (penitentiary papers) History/Exam Limitations: clinical condition Onset/Duration Of Symptoms: Days (today) Additional Complaint(s): Pt. sent to the ER for replacement of soares that is serving as a peg tube with a peg tube. Pt. h and p limited and pt. not communicating at baseline. Past Medical History Reviewed: Nursing Documentation, Vital Signs Vital Signs: Last Vital Signs Temp 99.5 F 12/05/18 08:49 Pulse 76 12/05/18 08:49 Resp 16 12/05/18 08:49 BP 143/51 L 12/05/18 08:49 Pulse Ox 95 12/05/18 08:49 - Medical History PMH: Alzheimer's Disease, Anxiety, Arthritis, Bronchitis, COPD, CVA, Dementia, Gall Bladder Disease, HTN, Hypercholesterolemia, Seizures, TIA Denies: HIV, Chronic Kidney Disease - Surgical History Surgical History: Cholecystectomy - Family History Family History: States: Unknown Family Hx - Living Arrangements Living Arrangements: Alf/Assist Lv - Home Medications Home Medications: Ambulatory Orders Medication Instructions Recorded Atorvastatin [Lipitor] 40 mg PEG HS 12/30/17 Carvedilol [Coreg] 6.25 mg PEG Q12 12/30/17 Insulin Lispro [humALOG] 6 unit SC ACTID 12/30/17 Clopidogrel [Plavix] 75 mg PEG DAILY tab 01/03/18 Aspirin [Aspirin Chewable] 81 mg PEG QPM 05/26/18 Famotidine [Pepcid] 20 mg PEG HS 05/26/18 Nitroglycerin 0.1 mg/hr [Nitro-Dur 1 patch TD DAILY 05/26/18 0.1 mg/hr Patch] amLODIPine [Norvasc] 5 mg PEG DAILY 05/26/18 levETIRAcetam Solution [Keppra] 650 mg PEG Q12 05/26/18 Albuterol/Ipratropium [Duoneb 3 3 ml IH Q6 PRN 06/08/18 mg/0.5 mg (3 ml) UD] Acetaminophen [Tylenol 160mg/5ml 20 ml PEG Q4 PRN 10/17/18 Oral Soln] Acetaminophen [Tylenol 160mg/5ml 20 ml PEG Q4 PRN 10/17/18 Oral Soln] Magnesium Hydroxide [Milk Of 30 ml PEG HS PRN 10/17/18 Magnesia] Ergocalciferol [Drisdol 50,000 1 cap PO Q7D cap 10/22/18 Intl Units Cap] - Allergies Allergies/Adverse Reactions: Allergies Allergy/AdvReac Type Severity Reaction Status Date / Time No Known Allergies Allergy Verified 07/21/18 11:12 Review of Systems Review Of Systems: ROS cannot be obtained secondary to pt's inabilty to answer questions. Physical Exam - Reviewed Nursing Documentation Reviewed: Yes Vital Signs Reviewed: Yes - Physical Exam Appears: Positive for: Non-toxic, No Acute Distress Head Exam: Positive for: ATRAUMATIC, NORMAL INSPECTION, NORMOCEPHALIC Skin: Positive for: Normal Color, Warm, DRY Eye Exam: Positive for: Normal appearance, EOMI, PERRL ENT: Positive for: Normal ENT Inspection Neck: Positive for: Normal, Painless ROM Cardiovascular/Chest: Positive for: Regular Rate, Rhythm Respiratory: Positive for: CNT, Normal Breath Sounds Gastrointestinal/Abdominal: Positive for: Normal Exam, Soft, Other (soares in place at g-tube insertion site; no erythema or dc). Negative for: Tenderness Back: Positive for: Normal Inspection. Negative for: L CVA Tenderness, R CVA Tenderness Extremity: Positive for: Other (limited movement as pt. not following commands and has cva hx). Negative for: Tenderness, Pedal Edema Neurological/Psych: Negative for: Facial Droop - ECG O2 Sat by Pulse Oximetry: 95 - Progress ED Course And Treament: 1034: Dr. Willis at bedside and will put in peg tube. 1049: Dr. Rose put peg tube in. Pt. to return to [place]. Stable. Vitals maintained. Disposition - Clinical Impression Clinical Impression: PEG tube malfunction - Patient ED Disposition Is Patient to be Admitted: No Counseled Patient/Family Regarding: Diagnosis, Need For Followup - Disposition Referrals: [facility] [Outside] Disposition: Routine/Home Disposition Time: 10:51 Condition: STABLE Additional Instructions: Return if not better in 3 days. Peg tube put in by Dr. Willis. Instructions: How to Care for Your PEG Tube
[2018-12-05 13:21] VITALS: BP 138/60; PULSE 80; TEMP 99
--- NOTE | 2018-12-09 16:20 | CON ---
DATE: 12/05/2018 REFERRING PHYSICIAN: Keith Red MD REASON FOR CONSULTATION: Dysphagia. HISTORY OF PRESENT ILLNESS: This is an 83-year-old history of Alzheimer's dementia, anxiety, arthritis, bronchitis, COPD, CVA, hypertension, hypercholesterolemia, seizure and TIA who has feeding tube and is now here for change. The patient is lying in bed comfortably, in no apparent distress. PAST MEDICAL HISTORY: As above. PAST SURGICAL HISTORY: As above. MEDICATIONS: Has been reviewed. REVIEW OF SYSTEMS: All other systems have been obtained. PHYSICAL EXAMINATION: VITAL SIGNS: Here in the hospital are grossly unremarkable. GENERAL: A pleasant elderly appearing female, lying in bed comfortable, in no apparent distress. HEENT: Head: Normocephalic and atraumatic. Eyes: Pupils are equally reactive to light bilaterally. No conjunctival pallor or icterus. NECK: Supple. Normal range of motion. No lymphadenopathy appreciated. LUNGS: Coarse breath sounds bilaterally. HEART: S1 and S2. Regular rate and rhythm. No murmurs appreciated. ABDOMEN: Soft and nontender. Bowel sounds present. No rebound. No guarding. RECTAL: Deferred. EXTREMITIES: Pulses felt bilaterally. SKIN: Warm, dry, and intact. NEUROLOGIC: Alert and oriented x1. LABORATORY DATA: Labs are pending. ASSESSMENT AND PLAN: This is an 83-year-old female with dysphagia. I exchanged the percutaneous endoscopic gastrostomy tube at bedside with an 18-[place] feeding tube . The patient can be discharged to home safely. Thank you for the consultation. Christopher Pichardo MD/ PhD cc: Keith Red MD
== END 2018-12-05 12:55 | disposition home or self-care (01) ==
LOC: H.ER 08:44
DX: K94.23 Gastrostomy malfunction (principal); E78.00 Pure hypercholesterolemia, unspecified; F02.80 Dementia in other diseases classified elsewhere, unspecified severity, without behavioral disturbance, psychotic disturbance, mood disturbance, and anxiety; G30.9 Alzheimer's disease, unspecified; Z79.4 Long term (current) use of insulin